=== PATIENT | male | born 1960 | race Caucasian/White ===

== ENCOUNTER → 2018-07-12 09:08 | Outpatient (CLI) | payer OTHER, MEDICAID, SELFPAY ==
--- NOTE | 2018-07-12 09:11 | DI.RAD.S_ITS ---
PROCEDURE: XR CERVICAL SPINE 2V OR 3V INDICATIONS: Neck pain TECHNIQUE: 3 view(s) of the cervical spine were acquired. COMPARISON: None. FINDINGS: Bones: No fractures or dislocations to the C7 level. The lateral masses of C1 appear intact on the odontoid view. Hypertrophic changes are evident in the lateral masses, especially in C4-5 and C5-6, right greater than left. No suspicious bony lesions. There is disc narrowing at C5-6 and C6-7. Soft tissues: No prevertebral soft tissue swelling. IMPRESSION: Degenerative disc disease and spondylosis cervical spine. Dictated by: Vinnie Combs M.D. on 07/12/2018 at 9:27 Approved by: Vinnie Combs M.D. on 07/12/2018 at 9:29
== END ==
PROVIDERS: Visit Provider Physician Assistant
DX: M50.321 Other cervical disc degeneration at C4-C5 level (principal); M43.02 Spondylolysis, cervical region
CPT/HCPCS: 72040

== ENCOUNTER → 2021-05-03 17:12 | Outpatient (CLI) | payer OTHER, MEDICAID, SELFPAY ==
--- NOTE | 2021-05-03 17:15 | DI.RAD.S_ITS ---
PROCEDURE: XR LUMBAR SPINE 2-3V INDICATIONS: lower back pain TECHNIQUE: Three views of the lumbar spine were acquired. COMPARISON: None. FINDINGS: Bones: There are 5 [id number] lumbar type vertebral bodies of normal height and alignment. Mild disc height loss from L3-L4 through L5-S1 with mild degenerative endplate change and facet hypertrophy. Soft tissues: Overlying bowel gas pattern is normal. No suspicious soft tissue calcifications. IMPRESSION: Degenerative changes in the lower lumbar spine, overall mild-moderate. Dictated by: Neto Lopez M.D. on 05/03/2021 at 19:53 Approved by: Neto Lopez M.D. on 05/03/2021 at 19:54
--- NOTE | 2021-05-03 17:15 | DI.RAD.S_ITS ---
PROCEDURE: XR SHOULDER RT MIN 2V INDICATIONS: right shoulder pain TECHNIQUE: 3 views of the shoulder were acquired. COMPARISON: None. FINDINGS: Bones: No fractures or dislocations. No suspicious bony lesions. Visualized ribs appear intact. Soft tissues: No suspicious soft tissue calcifications. IMPRESSION: No acute finding or significant degenerative change. Dictated by: Neto Lopez M.D. on 05/03/2021 at 19:54 Approved by: Neto Lopez M.D. on 05/03/2021 at 19:54
[2021-05-03 20:14] LABS: Add Manual Diff / Slide Review NO; Basophils Absolute Auto 0 /uL (0-100); Basophils Percent Auto 0.5 % (0-2); Eosinophils Absolute Auto 100 /uL (0-450); Eosinophils Percent Auto 0.8 % (2-4); Hematocrit 46.5 % (41-53); Hemoglobin 15.6 g/dL (13.5-17.5); Lymphocytes Absolute Auto 1600 /uL (1100-4500); Lymphocytes Percent Auto 16.8 % (25-40); Mean Corpuscular HGB Conc 33.5 % (30-36); Mean Corpuscular Hemoglobin 31.1 PG (26-34); Mean Corpuscular Volume 92.8 fL (80-100); Monocytes Absolute Auto 900 /uL (0-900); Monocytes Percent Auto 9.5 % (3-14); Neutrophils Absolute Auto 7000 /uL (1500-7000); Neutrophils Percent Auto 72.4 % (50-75); Platelet Count 268 X10^3/uL (150-400); Red Blood Cell Count 5.01 X10^6/uL (4.5-5.9); Red Cell Distribution Width 12.4 % (11.6-14.8); White Blood Cell Count 9.6 X10^3/uL (4.5-11.0)
[2021-05-03 20:28] LABS: BUN Creatinine Ratio 13.5 (6-22); Blood Urea Nitrogen 14 mg/dL (9-20); Calcium 9.5 mg/dL (8.4-10.2); Carbon Dioxide 28 mmol/L (22-32); Chloride 99 mmol/L (98-107); Cholesterol 273 mg/dL (140-199); Estimated Glomerular Filt Rate > 60.0 mL/min (>60); Glucose 83 mg/dL (70-100); HDL Cholesterol 37 mg/dL (40-60); HEMOLYSIS < 15 (0-50); LDL Cholesterol Calculated 205 mg/dL (<100); Potassium 3.9 mmol/L (3.4-5.1); Sodium 138 mmol/L (137-145); Triglycerides 155 mg/dL (35-150)
[2021-05-03 20:59] LABS: Prostate Specific Antigen Scrn 2.75 ng/mL (0.1-4.0)
== END ==
PROVIDERS: PCP Family Medicine; Referring Provider Registered Nurse; Visit Provider Registered Nurse
DX: M25.511 Pain in right shoulder (principal); M54.5 Low back pain; Z12.11 Encounter for screening for malignant neoplasm of colon; Z12.5 Encounter for screening for malignant neoplasm of prostate; Z13.220 Encounter for screening for lipoid disorders
CPT/HCPCS: 36415; 72100; 73030; 80048; 80061; 85025; G0103

== ENCOUNTER → 2021-05-07 13:06 | Outpatient (CLI) | payer OTHER, MEDICAID, SELFPAY ==
[2021-05-08 14:08] LABS: Fecal Immunochemical Test Negative (Negative)
== END ==
PROVIDERS: PCP Family Medicine; Referring Provider Family Medicine; Visit Provider Family Medicine
DX: Z12.11 Encounter for screening for malignant neoplasm of colon (principal); Z12.5 Encounter for screening for malignant neoplasm of prostate; Z13.220 Encounter for screening for lipoid disorders
CPT/HCPCS: 82274

== ENCOUNTER → 2021-05-16 14:52 | Outpatient (CLI) | payer OTHER, MEDICAID, SELFPAY ==
[2021-05-16 16:00] LABS: C-Reactive Protein Quant 6.3 mg/dL (<1.0)
[2021-05-16 16:23] LABS: Erythrocyte Sedimentation Rate 28 MM/HR (0-15)
== END ==
PROVIDERS: Family Provider Family Medicine; PCP Family Medicine; Referring Provider Family Medicine; Visit Provider Family Medicine
DX: M79.10 Myalgia, unspecified site (principal)
CPT/HCPCS: 36415; 85651; 86140

== ENCOUNTER → 2021-09-12 10:30 | Outpatient (CLI) | payer OTHER, MEDICAID, SELFPAY ==
[2021-09-12 11:16] LABS: Add Manual Diff / Slide Review NO; Basophils Absolute Auto 0 /uL (0-100); Basophils Percent Auto 0.4 % (0-2); Eosinophils Absolute Auto 100 /uL (0-450); Hematocrit 48.3 % (41-53); Hemoglobin 16.2 g/dL (13.5-17.5); Lymphocytes Absolute Auto 900 /uL (1100-4500); Lymphocytes Percent Auto 12.6 % (25-40); Mean Corpuscular HGB Conc 33.6 % (30-36); Mean Corpuscular Hemoglobin 31.8 PG (26-34); Mean Corpuscular Volume 94.7 fL (80-100); Monocytes Absolute Auto 600 /uL (0-900); Monocytes Percent Auto 8.3 % (3-14); Neutrophils Absolute Auto 5400 /uL (1500-7000); Neutrophils Percent Auto 77.7 % (50-75); Platelet Count 191 X10^3/uL (150-400); Red Cell Distribution Width 13.6 % (11.6-14.8)
[2021-09-12 11:34] LABS: Erythrocyte Sedimentation Rate 4 MM/HR (0-15)
[2021-09-12 12:47] LABS: Alanine Aminotransferase 16 IU/L (<50); Albumin 4.1 g/dL (3.5-5.0); Albumin Globulin Ratio 1.8 (1.0-2.8); Alkaline Phosphatase 66 U/L (38-126); Aspartate Aminotransferase 20 IU/L (17-59); BUN Creatinine Ratio 14.4 (6-22); Bilirubin Total 0.9 mg/dL (0.2-1.3); Blood Urea Nitrogen 15 mg/dL (9-20); C-Reactive Protein Quant 0.9 mg/dL (<1.0); Calcium 9.2 mg/dL (8.4-10.2); Carbon Dioxide 30 mmol/L (22-32); Chloride 100 mmol/L (98-107); Cholesterol 263 mg/dL (140-199); Estimated Glomerular Filt Rate > 60.0 mL/min (>60); Globulin 2.3 g/dL (1.7-4.1); Glucose 105 mg/dL (80-110); HDL Cholesterol 47 mg/dL (40-60); HEMOLYSIS < 15 (0-50); LDL Cholesterol Calculated 183 mg/dL (<100); Potassium 4.2 mmol/L (3.4-5.1); Sodium 137 mmol/L (137-145); Total Protein 6.4 g/dL (6.3-8.2); Triglycerides 164 mg/dL (35-150)
== END ==
PROVIDERS: Family Provider Family Medicine; PCP Family Medicine; Referring Provider Family Medicine; Visit Provider Family Medicine
DX: M35.3 Polymyalgia rheumatica (principal); E78.2 Mixed hyperlipidemia
CPT/HCPCS: 36415; 80053; 80061; 85025; 85651; 86140

== ENCOUNTER 2021-10-29 10:30 | Outpatient (RCR) | payer OTHER, MEDICAID, SELFPAY ==
--- NOTE | 2021-06-11 15:44 | PT.OIE ---
Current Diagnoses Pain in right shoulder (06/11/21) Pain in left shoulder (06/11/21) Low back pain (06/11/21) Past Medical History (Last Updated 05/31/21 @ 10:18 by Jordy Lawrence DO) Borderline high blood pressure Chicken pox Eczema Excessive weight gain Hip fracture (~1983) History of hernia surgery (~2008) History of hip surgery (~11/1983) Hyperlipidemia, mixed Lower back pain Myalgia PMR (polymyalgia rheumatica) Right shoulder pain Screen for colon cancer Screening for hyperlipidemia Screening for prostate cancer Shingles (~2008) Tinea corporis Wheat allergy Past Surgical History (Last Reviewed 05/03/21 @ 17:42 by SLOANE Escobedo) Anesthesia History of hernia surgery (~2008) History of hip surgery (~11/1983) Visit Care Team Role Provider Type SLOANE Escobedo Referring Provider [employer] M[employer] Installer Specialty: Medical Address: [address] [place] [address] Email: [email or web address] Jordy Lawrence DO Attending Provider Physician Family Provider Primary Care Provider Specialty: Family Practice Address: [address] [place] [address], [facility] Email: Physical Therapy Initial Evaluation PT-OP-A Visit Information Start: 05/28/21 15:30 Freq: Status: Active Protocol: Document 06/11/21 13:30 AMB (Rec: 06/11/21 15:21 AMB [email or web address]) Out-Patient Physical Therapy Visit Information Visit Information Visit Type Initial Evaluation Visit Start Time 13:30 Visit Stop Time 14:15 Total Visit Minutes 45 Visit Number 1 PT-OP-B Current Condition Start: 05/28/21 15:30 Freq: Status: Active Protocol: Document 06/11/21 13:30 AMB (Rec: 06/11/21 13:48 AMB [id number]) Current Condition History of Current Condition Onset Date March 2021 Current Complaints R shoulder pain> L shoulder pain> B hamstring pain History of Current Condition Recently diagnosed with polymyalgia rheumatica. 1 month on prednisone. R shoulder has not been responding to the prednisone as well as L shoulder and bilateral hamstring pain was worse before being on prednisone. Was doing a lot of yard work and had extreme pain the next day at the onset . Denies specific fall or injury. X-rays were clear per pt. Pt works from home at computer. Treatment Goals Patient/Caregiver Goals Decrease R shoulder pain Prior Functional Status Baseline Function- ADL's Independent Baseline Function- Mobility Independent Current Functional Impairments (Reported) Functional Limitations- ADL's Difficulty reaching out away from body with right arm, stiffness in morning Personal Factors Other Personal Factors That May Effect Polymyalgia rheumatica, Therapy/Recovery currently on prednisone PT-OP-C Subjective Start: 05/28/21 15:30 Freq: Status: Active Protocol: Document 06/11/21 13:30 AMB (Rec: 06/11/21 15:21 AMB [email or web address]) Patient Questionnaires Oswestry Low Back Index Oswestry Score 40 Oswestry Impairment 40 to 59% Impaired (Score 40- 59) Quick Dash- Upper Extremity Quick Dash UE Score 54 Quick Dash UE Impairment 40 to 59% Impaired (Score 40- 59) PT-OP-J Posture/Palpation/Skin Start: 05/28/21 15:30 Freq: Status: Active Protocol: Document 06/11/21 15:38 AMB (Rec: 06/11/21 15:44 AMB [email or web address]) Posture Evaluation Comments Posture Comments Flat lumbar spine with forward head posture Palpation Assessment Location One Palpation Details Tenderness throughout musculature of R shoulder most significant at long head of biceps insertion PT-OP-K Range of Motion Start: 05/28/21 15:30 Freq: Status: Active Protocol: Document 06/11/21 15:38 AMB (Rec: 06/11/21 15:44 AMB [email or web address]) Shoulder Goniometric Range of Motion Shoulder Left Active Testing Position Sitting Flexion 170 Abduction 180 External Rotation at 90 degrees 80 Abduction Right Active Testing Position Sitting Flexion 150 Extension 65 Abduction 155 External Rotation at 90 degrees 30 Abduction Internal Rotation 70 Comments pain with ER and IR behind back Hip Goniometric Range of Motion Hip ROM Limitations Comments Tighter in L hamstring than R PT-OP-M Strength Start: 05/28/21 15:30 Freq: Status: Active Protocol: Document 06/11/21 15:38 AMB (Rec: 06/11/21 15:44 AMB [email or web address]) Shoulder Strength Shoulder Manual Muscle Testing Right Flexion 3+ Fair+ Extension 4 Good Abduction (C5) 3+ Fair+ External Rotation 4 Good Internal Rotation 4+ Good+ Left Flexion 4 Good Extension 5 Normal Abduction (C5) 4 Good External Rotation 4+ Good+ Internal Rotation 5 Normal PT-OP-Q Treatments Start: 05/28/21 15:30 Freq: Status: Active Protocol: Document 06/11/21 15:38 AMB (Rec: 06/11/21 15:44 AMB [email or web address]) Therapeutic Exercises Supine Exercises hamstring stretch Side bilateral Reps/Minutes 30x4 Comments HEP Standing Exercises isometrics Standing Exercise Name flex, ER, IR, ext Side right Reps/Minutes 5x5 ea Comments abduction increased pain PT-OP-T Assessment and Plan Start: 05/28/21 15:30 Freq: Status: Active Protocol: Document 06/11/21 13:30 AMB (Rec: 06/11/21 15:37 AMB [email or web address]) Physical Therapy Assessment Rehab Potential Rehabilitation Potential Good Evaluation Complexity Number of Personal Factors/Comorbidities 1-2 Number of Body Systems Impaired 4 or More Clinical Presentation at Evaluation Evolving Impairments Impairments Activity Tolerance,Functional Activities,Pain,ROM,Strength Goals Three Impairment Lifting Short Term Goal (STG) Roland will lift a jug of ice tea out of the fridge without increasing his shoulder pain. STG Duration 4 weeks Senior Living Goal (LTG) Roland will lift 10# from the floor to waist heigh without an increase in leg or shoulder pain. LTG Duration 8 weeks Two Impairment ROM Short Term Goal (STG) Roland will improve his AROM of his R shoulder to 170 degrees of abduction. STG Duration 4 weeks One Impairment HEP Short Term Goal (STG) Roland will be independent and consistent with a home exercise program for his bilateral shoulders and lower extremities. STG Duration 4 weeks Assessment Summary Assessment Roland attends physical therapy with continue R shoulder pain that has not responded as well to corticosteroid treatment as his L shoulder and bilateral posterior thigh pain. He continues to be limited in reaching away from his body and behind his back, similar to a patient with rotator cuff pathology. He will benefit from physical therapy to manage inflammation, tightness and progress strengthening of his shoulders and legs. Physical Therapy Plan Frequency and Duration Frequency of Treatment 2x/Week Duration of Treatment 8 weeks Plan of Care Start Date 06/11/21 Plan of Care End Date 08/06/21 Therapeutic Interventions Therapeutic Interventions Home Exercise Program,Joint Mobilizations,Manual Therapy, Neuromuscular Re-education, Self-Care/Home Management,Soft Tissue Mobilization, Therapeutic Activities, Therapeutic Exercises Modalities Cold Pack/Ice Massage,Electric Stimulation,Hot Packs, Ultrasound Next Visit Focus/Plan Next Note Type Treatment Note Next Visit Plan Reassess isometrics and tolerance to that, initiate stretching HEP
--- NOTE | 2021-06-11 15:46 | PT.OPPOC ---
Physical, Occupational & Speech Therapy At [facility] Current Diagnoses Pain in right shoulder (06/11/21) Pain in left shoulder (06/11/21) Low back pain (06/11/21) Visit Care Team Role Provider Type SLOANE Escobedo Referring Provider Advanced [employer] Tech Specialty: Medical Address: [address] [place] [address], [id number] Email: [email or web address] Jordy Lawrence DO Attending Provider Physician Family Provider Primary Care Provider Specialty: Family Practice Address: [address] [place] [address], [id number] Email: Plan Of Care PT-OP-T Assessment and Plan Start: 05/28/21 15:30 Freq: Status: Active Protocol: Document 06/11/21 13:30 AMB (Rec: 06/11/21 15:37 AMB [email or web address]) Physical Therapy Assessment Rehab Potential Rehabilitation Potential Good Evaluation Complexity Number of Personal Factors/Comorbidities 1-2 Number of Body Systems Impaired 4 or More Clinical Presentation at Evaluation Evolving Impairments Impairments Activity Tolerance,Functional Activities,Pain,ROM,Strength Goals Three Impairment Lifting Short Term Goal (STG) Roland will lift a jug of ice tea out of the fridge without increasing his shoulder pain. STG Duration 4 weeks Half-Way Goal (LTG) Roland will lift 10# from the floor to waist heigh without an increase in leg or shoulder pain. LTG Duration 8 weeks Two Impairment ROM Short Term Goal (STG) Roland will improve his AROM of his R shoulder to 170 degrees of abduction. STG Duration 4 weeks One Impairment HEP Short Term Goal (STG) Roland will be independent and consistent with a home exercise program for his bilateral shoulders and lower extremities. STG Duration 4 weeks Assessment Summary Assessment Roland attends physical therapy with continue R shoulder pain that has not responded as well to corticosteroid treatment as his L shoulder and bilateral posterior thigh pain. He continues to be limited in reaching away from his body and behind his back, similar to a patient with rotator cuff pathology. He will benefit from physical therapy to manage inflammation, tightness and progress strengthening of his shoulders and legs. Physical Therapy Plan Frequency and Duration Frequency of Treatment 2x/Week Duration of Treatment 8 weeks Plan of Care Start Date 06/11/21 Plan of Care End Date 08/06/21 Therapeutic Interventions Therapeutic Interventions Home Exercise Program,Joint Mobilizations,Manual Therapy, Neuromuscular Re-education, Self-Care/Home Management,Soft Tissue Mobilization, Therapeutic Activities, Therapeutic Exercises Modalities Cold Pack/Ice Massage,Electric Stimulation,Hot Packs, Ultrasound Next Visit Focus/Plan Next Note Type Treatment Note Next Visit Plan Reassess isometrics and tolerance to that, initiate stretching HEP Plan of Care Dates Plan of Care Start Date 06/11/21 Plan of Care End Date 08/06/21 Electronically Signed by: Yun Orosco, PT 06/11/21 [id number] Please Sign and Return: I have reviewed this Plan of Care and certify that the skilled therapy services above are required to meet the patient?s needs. Physician Signature Date Printed Name and Credentials Clinical Instructor Signature Printed Name and Credentials
--- NOTE | 2021-06-14 15:40 | PT.OTN ---
Current Diagnoses Pain in right shoulder (06/13/21) Pain in left shoulder (06/13/21) Low back pain (06/13/21) Physical Therapy Treatment Note PT-OP-A Visit Information Start: 05/28/21 15:30 Freq: Status: Active Protocol: Document 06/13/21 09:00 AMB (Rec: 06/13/21 10:10 AMB [id number]) Out-Patient Physical Therapy Visit Information Visit Information Visit Type Treatment Note Visit Start Time 09:00 Visit Stop Time 09:45 Total Visit Minutes 45 Visit Number 2 PT-OP-B Current Condition Start: 05/28/21 15:30 Freq: Status: Active Protocol: Document 06/11/21 13:30 AMB (Rec: 06/11/21 13:48 AMB [id number]) Current Condition History of Current Condition Onset Date March 2021 Current Complaints R shoulder pain> L shoulder pain> B hamstring pain History of Current Condition Recently diagnosed with polymyalgia rheumatica. 1 month on prednisone. R shoulder has not been responding to the prednisone as well as L shoulder and bilateral hamstring pain was worse before being on prednisone. Was doing a lot of yard work and had extreme pain the next day at the onset . Denies specific fall or injury. X-rays were clear per pt. Pt works from home at computer. Treatment Goals Patient/Caregiver Goals Decrease R shoulder pain Prior Functional Status Baseline Function- ADL's Independent Baseline Function- Mobility Independent Current Functional Impairments (Reported) Functional Limitations- ADL's Difficulty reaching out away from body with right arm, stiffness in morning Personal Factors Other Personal Factors That May Effect Polymyalgia rheumatica, Therapy/Recovery currently on prednisone PT-OP-C Subjective Start: 05/28/21 15:30 Freq: Status: Active Protocol: Document 06/13/21 09:00 AMB (Rec: 06/14/21 15:39 AMB [email or web address]) OP-PT Subjective Patient Comments Patient Comments Pt states R shoulder continues to be the biggest issue. Isometrics did not seem to irritate as long as does it gentle. PT-OP-J Posture/Palpation/Skin Start: 05/28/21 15:30 Freq: Status: Active Protocol: Document 06/11/21 15:38 AMB (Rec: 06/11/21 15:44 AMB [email or web address]) Posture Evaluation Comments Posture Comments Flat lumbar spine with forward head posture Palpation Assessment Location One Palpation Details Tenderness throughout musculature of R shoulder most significant at long head of biceps insertion PT-OP-K Range of Motion Start: 05/28/21 15:30 Freq: Status: Active Protocol: Document 06/11/21 15:38 AMB (Rec: 06/11/21 15:44 AMB [email or web address]) Shoulder Goniometric Range of Motion Shoulder Left Active Testing Position Sitting Flexion 170 Abduction 180 External Rotation at 90 degrees 80 Abduction Right Active Testing Position Sitting Flexion 150 Extension 65 Abduction 155 External Rotation at 90 degrees 30 Abduction Internal Rotation 70 Comments pain with ER and IR behind back Hip Goniometric Range of Motion Hip ROM Limitations Comments Tighter in L hamstring than R PT-OP-M Strength Start: 05/28/21 15:30 Freq: Status: Active Protocol: Document 06/11/21 15:38 AMB (Rec: 06/11/21 15:44 AMB [email or web address]) Shoulder Strength Shoulder Manual Muscle Testing Right Flexion 3+ Fair+ Extension 4 Good Abduction (C5) 3+ Fair+ External Rotation 4 Good Internal Rotation 4+ Good+ Left Flexion 4 Good Extension 5 Normal Abduction (C5) 4 Good External Rotation 4+ Good+ Internal Rotation 5 Normal PT-OP-Q Treatments Start: 05/28/21 15:30 Freq: Status: Active Protocol: Document 06/13/21 09:00 AMB (Rec: 06/14/21 15:39 AMB [email or web address]) Therapeutic Exercises Sidelying Exercises ER Sidelying Exercise Name ER AROM Standing Exercises 1 Standing Exercise Name t band rows Resistance #2 isometrics Standing Exercise Name flex, ER, IR, ext Side right Reps/Minutes 5x5 ea Comments abduction increased pain Manual Therapy Treatment Soft Tissue Mobilization 1 Body Location R UT, pec, biceps Mobilization Type Myofascial Release Intensity/Depth Moderate Joint Mobilizations 1 Joint GH posterior and inferior glides Grade II PT-OP-R Modalities Start: 05/28/21 15:30 Freq: Status: Active Protocol: Document 06/13/21 09:00 AMB (Rec: 06/14/21 15:40 AMB [email or web address]) Electric Stimulation Electric Stimulation Interferential Current (IFC) Body Location R shoulder Duration (Minutes) 10 Patient Position Hooklying Combined With Heat/Cold Cold Pack PT-OP-T Assessment and Plan Start: 05/28/21 15:30 Freq: Status: Active Protocol: Document 06/13/21 09:00 VANITA (Rec: 06/14/21 15:39 AMB [email or web address]) Physical Therapy Plan Next Visit Focus/Plan Next Note Type Treatment Note
--- NOTE | 2021-06-17 11:55 | PT.OTN ---
Current Diagnoses Pain in right shoulder (06/17/21) Pain in left shoulder (06/17/21) Low back pain (06/17/21) Physical Therapy Treatment Note PT-OP-A Visit Information Start: 05/28/21 15:30 Freq: Status: Active Protocol: Document 06/17/21 11:00 AMB (Rec: 06/17/21 11:55 AMB [id number]) Out-Patient Physical Therapy Visit Information Visit Information Visit Type Treatment Note Visit Start Time 11:00 Visit Stop Time 11:45 Total Visit Minutes 45 Visit Number 3 PT-OP-B Current Condition Start: 05/28/21 15:30 Freq: Status: Active Protocol: Document 06/11/21 13:30 AMB (Rec: 06/11/21 13:48 AMB [id number]) Current Condition History of Current Condition Onset Date March 2021 Current Complaints R shoulder pain> L shoulder pain> B hamstring pain History of Current Condition Recently diagnosed with polymyalgia rheumatica. 1 month on prednisone. R shoulder has not been responding to the prednisone as well as L shoulder and bilateral hamstring pain was worse before being on prednisone. Was doing a lot of yard work and had extreme pain the next day at the onset . Denies specific fall or injury. X-rays were clear per pt. Pt works from home at computer. Treatment Goals Patient/Caregiver Goals Decrease R shoulder pain Prior Functional Status Baseline Function- ADL's Independent Baseline Function- Mobility Independent Current Functional Impairments (Reported) Functional Limitations- ADL's Difficulty reaching out away from body with right arm, stiffness in morning Personal Factors Other Personal Factors That May Effect Polymyalgia rheumatica, Therapy/Recovery currently on prednisone PT-OP-C Subjective Start: 05/28/21 15:30 Freq: Status: Active Protocol: Document 06/17/21 11:00 AMB (Rec: 06/17/21 11:55 AMB [id number]) OP-PT Subjective Patient Comments Patient Comments Hamstrings are going well, R shoulder continues to be the problem PT-OP-J Posture/Palpation/Skin Start: 05/28/21 15:30 Freq: Status: Active Protocol: Document 06/11/21 15:38 AMB (Rec: 06/11/21 15:44 AMB [email or web address]) Posture Evaluation Comments Posture Comments Flat lumbar spine with forward head posture Palpation Assessment Location One Palpation Details Tenderness throughout musculature of R shoulder most significant at long head of biceps insertion PT-OP-K Range of Motion Start: 05/28/21 15:30 Freq: Status: Active Protocol: Document 06/11/21 15:38 AMB (Rec: 06/11/21 15:44 AMB [email or web address]) Shoulder Goniometric Range of Motion Shoulder Left Active Testing Position Sitting Flexion 170 Abduction 180 External Rotation at 90 degrees 80 Abduction Right Active Testing Position Sitting Flexion 150 Extension 65 Abduction 155 External Rotation at 90 degrees 30 Abduction Internal Rotation 70 Comments pain with ER and IR behind back Hip Goniometric Range of Motion Hip ROM Limitations Comments Tighter in L hamstring than R PT-OP-M Strength Start: 05/28/21 15:30 Freq: Status: Active Protocol: Document 06/11/21 15:38 AMB (Rec: 06/11/21 15:44 AMB [email or web address]) Shoulder Strength Shoulder Manual Muscle Testing Right Flexion 3+ Fair+ Extension 4 Good Abduction (C5) 3+ Fair+ External Rotation 4 Good Internal Rotation 4+ Good+ Left Flexion 4 Good Extension 5 Normal Abduction (C5) 4 Good External Rotation 4+ Good+ Internal Rotation 5 Normal PT-OP-Q Treatments Start: 05/28/21 15:30 Freq: Status: Active Protocol: Document 06/17/21 11:00 AMB (Rec: 06/17/21 11:55 AMB [id number]) Therapeutic Exercises Supine Exercises 1 Supine Exercise Name flexion AROM 0-45 Reps/Minutes 2x10 Sidelying Exercises ER Sidelying Exercise Name ER AROM Reps/Minutes 10 Standing Exercises IR/ER Standing Exercise Name t band #2 Reps/Minutes 2x10 Comments vc form 2 Standing Exercise Name t band shoulder ext Resistance #2 Reps/Minutes 2x10 1 Standing Exercise Name t band rows Resistance #2 Reps/Minutes 2x10 Manual Therapy Treatment Soft Tissue Mobilization 1 Body Location R UT, pec, biceps, subscap, infra and supraspinatus Mobilization Type Myofascial Release Intensity/Depth Moderate PT-OP-R Modalities Start: 05/28/21 15:30 Freq: Status: Active Protocol: Document 06/17/21 11:00 AMB (Rec: 06/17/21 11:55 AMB [id number]) Electric Stimulation Electric Stimulation Interferential Current (IFC) Body Location R shoulder Duration (Minutes) 10 Patient Position Hooklying Combined With Heat/Cold Cold Pack PT-OP-T Assessment and Plan Start: 05/28/21 15:30 Freq: Status: Active Protocol: Document 06/17/21 11:00 AMB (Rec: 06/17/21 11:55 AMB [id number]) Physical Therapy Assessment Assessment Summary Assessment Roland is tolerating more strengthening, continues to have most symptoms in upper arm and scapula. Physical Therapy Plan Next Visit Focus/Plan Next Note Type Treatment Note Next Visit Plan Follow up on T band exercises- give as HEP if tolerated
--- NOTE | 2021-06-20 11:59 | PT.OTN ---
Current Diagnoses Pain in right shoulder (06/20/21) Pain in left shoulder (06/20/21) Low back pain (06/20/21) Physical Therapy Treatment Note PT-OP-A Visit Information Start: 05/28/21 15:30 Freq: Status: Active Protocol: Document 06/20/21 11:00 AMB (Rec: 06/20/21 11:43 AMB [id number]) Out-Patient Physical Therapy Visit Information Visit Information Visit Type Treatment Note Visit Start Time 11:05 Visit Stop Time 11:45 Total Visit Minutes 40 Visit Number 4 PT-OP-B Current Condition Start: 05/28/21 15:30 Freq: Status: Active Protocol: Document 06/11/21 13:30 AMB (Rec: 06/11/21 13:48 AMB [id number]) Current Condition History of Current Condition Onset Date March 2021 Current Complaints R shoulder pain> L shoulder pain> B hamstring pain History of Current Condition Recently diagnosed with polymyalgia rheumatica. 1 month on prednisone. R shoulder has not been responding to the prednisone as well as L shoulder and bilateral hamstring pain was worse before being on prednisone. Was doing a lot of yard work and had extreme pain the next day at the onset . Denies specific fall or injury. X-rays were clear per pt. Pt works from home at computer. Treatment Goals Patient/Caregiver Goals Decrease R shoulder pain Prior Functional Status Baseline Function- ADL's Independent Baseline Function- Mobility Independent Current Functional Impairments (Reported) Functional Limitations- ADL's Difficulty reaching out away from body with right arm, stiffness in morning Personal Factors Other Personal Factors That May Effect Polymyalgia rheumatica, Therapy/Recovery currently on prednisone PT-OP-C Subjective Start: 05/28/21 15:30 Freq: Status: Active Protocol: Document 06/20/21 11:00 AMB (Rec: 06/20/21 11:43 AMB [id number]) OP-PT Subjective Patient Comments Patient Comments Pt would like to go on hold until he meets with his dr. He had a bit of a flare up afer PT last visit, felt good the rest of the day after the appt, but then the next day was quite sore. PT-OP-J Posture/Palpation/Skin Start: 05/28/21 15:30 Freq: Status: Active Protocol: Document 06/11/21 15:38 AMB (Rec: 06/11/21 15:44 AMB [email or web address]) Posture Evaluation Comments Posture Comments Flat lumbar spine with forward head posture Palpation Assessment Location One Palpation Details Tenderness throughout musculature of R shoulder most significant at long head of biceps insertion PT-OP-K Range of Motion Start: 05/28/21 15:30 Freq: Status: Active Protocol: Document 06/11/21 15:38 AMB (Rec: 06/11/21 15:44 AMB [email or web address]) Shoulder Goniometric Range of Motion Shoulder Left Active Testing Position Sitting Flexion 170 Abduction 180 External Rotation at 90 degrees 80 Abduction Right Active Testing Position Sitting Flexion 150 Extension 65 Abduction 155 External Rotation at 90 degrees 30 Abduction Internal Rotation 70 Comments pain with ER and IR behind back Hip Goniometric Range of Motion Hip ROM Limitations Comments Tighter in L hamstring than R PT-OP-M Strength Start: 05/28/21 15:30 Freq: Status: Active Protocol: Document 06/11/21 15:38 AMB (Rec: 06/11/21 15:44 AMB [email or web address]) Shoulder Strength Shoulder Manual Muscle Testing Right Flexion 3+ Fair+ Extension 4 Good Abduction (C5) 3+ Fair+ External Rotation 4 Good Internal Rotation 4+ Good+ Left Flexion 4 Good Extension 5 Normal Abduction (C5) 4 Good External Rotation 4+ Good+ Internal Rotation 5 Normal PT-OP-Q Treatments Start: 05/28/21 15:30 Freq: Status: Active Protocol: Document 06/20/21 11:00 AMB (Rec: 06/20/21 11:57 AMB [id number]) Therapeutic Exercises Supine Exercises AAROM Supine Exercise Name abduction and ER Comments painful 1 Supine Exercise Name flexion AAROM full Reps/Minutes 2x10 hamstring stretch Side bilateral Reps/Minutes 30x4 Comments HEP Standing Exercises isometrics Standing Exercise Name flex, ER, IR, ext Side right Reps/Minutes 5x5 ea Comments abduction increased pain PT-OP-R Modalities Start: 05/28/21 15:30 Freq: Status: Active Protocol: Document 06/17/21 11:00 AMB (Rec: 06/17/21 11:55 AMB [id number]) Electric Stimulation Electric Stimulation Interferential Current (IFC) Body Location R shoulder Duration (Minutes) 10 Patient Position Hooklying Combined With Heat/Cold Cold Pack PT-OP-T Assessment and Plan Start: 05/28/21 15:30 Freq: Status: Active Protocol: Document 06/20/21 11:00 AMB (Rec: 06/20/21 11:43 AMB [id number]) Physical Therapy Assessment Assessment Summary Assessment Roland would like to follow up with his physician before using more of his limited PT visits. Encouraged to continue with isometrics, add in AAROM flexion to HEP and consider purchasing home TENS unit. Physical Therapy Plan Hold Physical Therapy Reason For Hold Pt following up with
--- NOTE | 2021-09-12 13:38 | PT.OTN ---
Current Diagnoses Pain in right shoulder (09/12/21) Pain in left shoulder (09/12/21) Low back pain (09/12/21) Physical Therapy Treatment Note PT-OP-A Visit Information Start: 05/28/21 15:30 Freq: Status: Active Protocol: Document 09/12/21 10:01 AMB (Rec: 09/12/21 10:29 AMB [id number]) Out-Patient Physical Therapy Visit Information Visit Information Visit Type Progress Note Visit Start Time 09:45 Visit Stop Time 10:30 Total Visit Minutes 45 Visit Number 5 PT-OP-B Current Condition Start: 05/28/21 15:30 Freq: Status: Active Protocol: Document 06/11/21 13:30 AMB (Rec: 06/11/21 13:48 AMB [id number]) Current Condition History of Current Condition Onset Date March 2021 Current Complaints R shoulder pain> L shoulder pain> B hamstring pain History of Current Condition Recently diagnosed with polymyalgia rheumatica. 1 month on prednisone. R shoulder has not been responding to the prednisone as well as L shoulder and bilateral hamstring pain was worse before being on prednisone. Was doing a lot of yard work and had extreme pain the next day at the onset . Denies specific fall or injury. X-rays were clear per pt. Pt works from home at computer. Treatment Goals Patient/Caregiver Goals Decrease R shoulder pain Prior Functional Status Baseline Function- ADL's Independent Baseline Function- Mobility Independent Current Functional Impairments (Reported) Functional Limitations- ADL's Difficulty reaching out away from body with right arm, stiffness in morning Personal Factors Other Personal Factors That May Effect Polymyalgia rheumatica, Therapy/Recovery currently on prednisone PT-OP-C Subjective Start: 05/28/21 15:30 Freq: Status: Active Protocol: Document 09/12/21 13:20 AMB (Rec: 09/12/21 13:34 AMB [email or web address]) OP-PT Subjective Patient Comments Patient Comments Alvarez returns to PT and feels better in his hamstrings and his left shoulder, he continues to have pain lifting out away from his body, especially in abduction. PT-OP-J Posture/Palpation/Skin Start: 05/28/21 15:30 Freq: Status: Active Protocol: Document 06/11/21 15:38 AMB (Rec: 06/11/21 15:44 AMB [email or web address]) Posture Evaluation Comments Posture Comments Flat lumbar spine with forward head posture Palpation Assessment Location One Palpation Details Tenderness throughout musculature of R shoulder most significant at long head of biceps insertion PT-OP-K Range of Motion Start: 05/28/21 15:30 Freq: Status: Active Protocol: Document 09/12/21 13:34 AMB (Rec: 09/12/21 13:35 AMB [email or web address]) Shoulder Goniometric Range of Motion Shoulder Right Passive Testing Position Supine Flexion 165 Abduction 90 External Rotation at 90 degrees 40 Abduction Internal Rotation 90 PT-OP-M Strength Start: 05/28/21 15:30 Freq: Status: Active Protocol: Document 06/11/21 15:38 AMB (Rec: 06/11/21 15:44 AMB [email or web address]) Shoulder Strength Shoulder Manual Muscle Testing Right Flexion 3+ Fair+ Extension 4 Good Abduction (C5) 3+ Fair+ External Rotation 4 Good Internal Rotation 4+ Good+ Left Flexion 4 Good Extension 5 Normal Abduction (C5) 4 Good External Rotation 4+ Good+ Internal Rotation 5 Normal PT-OP-Q Treatments Start: 05/28/21 15:30 Freq: Status: Active Protocol: Document 09/12/21 13:20 AMB (Rec: 09/12/21 13:34 AMB [email or web address]) Therapeutic Exercises Supine Exercises AAROM Supine Exercise Name abduction and ER Reps/Minutes 2x10 Comments with dowel 1 Supine Exercise Name flexion AAROM full Reps/Minutes 2x10 Sitting Exercises pulleys Sitting Exercise Name flexion, abduction, IR Reps/Minutes 5 min Standing Exercises 4 Standing Exercise Name wall walk flexion, scaption, abduction Reps/Minutes [id number] 3 Standing Exercise Name wand extension and IR Reps/Minutes 2x10 PT-OP-R Modalities Start: 05/28/21 15:30 Freq: Status: Active Protocol: Document 06/17/21 11:00 AMB (Rec: 06/17/21 11:55 AMB [id number]) Electric Stimulation Electric Stimulation Interferential Current (IFC) Body Location R shoulder Duration (Minutes) 10 Patient Position Hooklying Combined With Heat/Cold Cold Pack PT-OP-T Assessment and Plan Start: 05/28/21 15:30 Freq: Status: Active Protocol: Document 09/12/21 13:20 AMB (Rec: 09/12/21 13:34 AMB [email or web address]) Physical Therapy Assessment Goals Three Impairment Lifting Short Term Goal (STG) Roland will lift a jug of ice tea out of the fridge without increasing his shoulder pain. STG Duration 4 weeks Detention Goal (LTG) Roland will lift 10# from the floor to waist heigh without an increase in leg or shoulder pain. LTG Duration 8 weeks Two Impairment ROM Short Term Goal (STG) Roland will improve his AROM of his R shoulder to 170 degrees of abduction. STG Duration 4 weeks-- not met One Impairment HEP Short Term Goal (STG) Roland will be independent and consistent with a home exercise program for his bilateral shoulders and lower extremities. STG Duration 4 weeks- progress made R shoulder is the focus now Assessment Summary Assessment Alvarez's ROM has improved, but he continues to be limited with abduction and external rotation. Scaption is actually quite good. His hamstrings and L shoulder are quite good now the focus of continued PT will be his right shoulder, he continues to have pain in the shoulder joint and difficulty lifting and reaching away from his body. He will benefit from continued physical therapy to finalize his HEP. Physical Therapy Plan Frequency and Duration Frequency of Treatment Every Other Week Duration of Treatment 8 weeks Plan of Care Start Date 09/12/21 Plan of Care End Date 11/07/21 Therapeutic Interventions Therapeutic Interventions Home Exercise Program,Joint Mobilizations,Manual Therapy, Neuromuscular Re-education, Self-Care/Home Management,Soft Tissue Mobilization, Therapeutic Activities, Therapeutic Exercises Modalities Cold Pack/Ice Massage,Electric Stimulation,Hot Packs, Ultrasound Next Visit Focus/Plan Next Visit Plan Folow up on AAROM exercises
--- NOTE | 2021-09-12 13:38 | PT.OPPOC ---
Physical, Occupational & Speech Therapy At [facility] Current Diagnoses Pain in right shoulder (09/12/21) Pain in left shoulder (09/12/21) Low back pain (09/12/21) Visit Care Team Role Provider Type SLOANE Escobedo Referring Provider Advanced Ed Special Education Teacher Specialty: Medical Address: [address] [place] [address], [id number] Email: [email or web address] Jordy Lawrence DO Attending Provider Physician Family Provider Primary Care Provider Specialty: Family Practice Address: [address] [place] [address], [id number] Email: Plan Of Care PT-OP-T Assessment and Plan Start: 05/28/21 15:30 Freq: Status: Active Protocol: Document 09/12/21 13:20 AMB (Rec: 09/12/21 13:34 AMB [email or web address]) Physical Therapy Assessment Goals Three Impairment Lifting Short Term Goal (STG) Roland will lift a jug of ice tea out of the fridge without increasing his shoulder pain. STG Duration 4 weeks Fpc Goal (LTG) Roland will lift 10# from the floor to waist heigh without an increase in leg or shoulder pain. LTG Duration 8 weeks Two Impairment ROM Short Term Goal (STG) Roland will improve his AROM of his R shoulder to 170 degrees of abduction. STG Duration 4 weeks-- not met One Impairment HEP Short Term Goal (STG) Roland will be independent and consistent with a home exercise program for his bilateral shoulders and lower extremities. STG Duration 4 weeks- progress made R shoulder is the focus now Assessment Summary Assessment Douglass ROM has improved, but he continues to be limited with abduction and external rotation. Scaption is actually quite good. His hamstrings and L shoulder are quite good now the focus of continued PT will be his right shoulder, he continues to have pain in the shoulder joint and difficulty lifting and reaching away from his body. He will benefit from continued physical therapy to finalize his HEP. Physical Therapy Plan Frequency and Duration Frequency of Treatment Every Other Week Duration of Treatment 8 weeks Plan of Care Start Date 09/12/21 Plan of Care End Date 11/07/21 Therapeutic Interventions Therapeutic Interventions Home Exercise Program,Joint Mobilizations,Manual Therapy, Neuromuscular Re-education, Self-Care/Home Management,Soft Tissue Mobilization, Therapeutic Activities, Therapeutic Exercises Modalities Cold Pack/Ice Massage,Electric Stimulation,Hot Packs, Ultrasound Next Visit Focus/Plan Next Visit Plan Folow up on AAROM exercises Plan of Care Dates Plan of Care Start Date 09/12/21 Plan of Care End Date 11/07/21 Electronically Signed by: Yun Orosco, PT 09/12/21 1200 Please Sign and Return: I have reviewed this Plan of Care and certify that the skilled therapy services above are required to meet the patient?s needs. Physician Signature Date Printed Name and Credentials Clinical Instructor Signature Printed Name and Credentials
--- NOTE | 2021-09-26 10:39 | PT.OTN ---
Current Diagnoses Pain in right shoulder (09/26/21) Pain in left shoulder (09/26/21) Low back pain (09/26/21) Physical Therapy Treatment Note PT-OP-A Visit Information Start: 05/28/21 15:30 Freq: Status: Active Protocol: Document 09/26/21 09:45 AMB (Rec: 09/26/21 10:39 AMB [id number]) Out-Patient Physical Therapy Visit Information Visit Information Visit Type Treatment Note Visit Start Time 09:45 Visit Stop Time 10:30 Total Visit Minutes 45 Visit Number 6 PT-OP-B Current Condition Start: 05/28/21 15:30 Freq: Status: Active Protocol: Document 06/11/21 13:30 AMB (Rec: 06/11/21 13:48 AMB [id number]) Current Condition History of Current Condition Onset Date March 2021 Current Complaints R shoulder pain> L shoulder pain> B hamstring pain History of Current Condition Recently diagnosed with polymyalgia rheumatica. 1 month on prednisone. R shoulder has not been responding to the prednisone as well as L shoulder and bilateral hamstring pain was worse before being on prednisone. Was doing a lot of yard work and had extreme pain the next day at the onset . Denies specific fall or injury. X-rays were clear per pt. Pt works from home at computer. Treatment Goals Patient/Caregiver Goals Decrease R shoulder pain Prior Functional Status Baseline Function- ADL's Independent Baseline Function- Mobility Independent Current Functional Impairments (Reported) Functional Limitations- ADL's Difficulty reaching out away from body with right arm, stiffness in morning Personal Factors Other Personal Factors That May Effect Polymyalgia rheumatica, Therapy/Recovery currently on prednisone PT-OP-C Subjective Start: 05/28/21 15:30 Freq: Status: Active Protocol: Document 09/26/21 09:45 AMB (Rec: 09/26/21 10:39 AMB [id number]) OP-PT Subjective Patient Comments Patient Comments Alvarez reports shoulder extension AAROM is uncomfortable. PT-OP-J Posture/Palpation/Skin Start: 05/28/21 15:30 Freq: Status: Active Protocol: Document 06/11/21 15:38 AMB (Rec: 06/11/21 15:44 AMB [email or web address]) Posture Evaluation Comments Posture Comments Flat lumbar spine with forward head posture Palpation Assessment Location One Palpation Details Tenderness throughout musculature of R shoulder most significant at long head of biceps insertion PT-OP-K Range of Motion Start: 05/28/21 15:30 Freq: Status: Active Protocol: Document 09/12/21 13:34 AMB (Rec: 09/12/21 13:35 AMB [email or web address]) Shoulder Goniometric Range of Motion Shoulder Right Passive Testing Position Supine Flexion 165 Abduction 90 External Rotation at 90 degrees 40 Abduction Internal Rotation 90 PT-OP-M Strength Start: 05/28/21 15:30 Freq: Status: Active Protocol: Document 06/11/21 15:38 AMB (Rec: 06/11/21 15:44 AMB [email or web address]) Shoulder Strength Shoulder Manual Muscle Testing Right Flexion 3+ Fair+ Extension 4 Good Abduction (C5) 3+ Fair+ External Rotation 4 Good Internal Rotation 4+ Good+ Left Flexion 4 Good Extension 5 Normal Abduction (C5) 4 Good External Rotation 4+ Good+ Internal Rotation 5 Normal PT-OP-Q Treatments Start: 05/28/21 15:30 Freq: Status: Active Protocol: Document 09/26/21 09:45 AMB (Rec: 09/26/21 10:39 AMB [id number]) Therapeutic Exercises Supine Exercises pec stretch Reps/Minutes 30x3 Sidelying Exercises sleeper stretch Reps/Minutes 30x5 Standing Exercises pec stretch Standing Exercise Name doorway then corner Comments modified lower to decrease sharp pain 4 Standing Exercise Name wall walk flexion, scaption, abduction Reps/Minutes [id number] 3 Standing Exercise Name wand extension and IR Reps/Minutes 2x10 Manual Therapy Treatment Soft Tissue Mobilization 1 Body Location supraspinatus Mobilization Type Myofascial Release Intensity/Depth Moderate Comments left Joint Mobilizations 1 Joint GH posterior and inferior glides Grade III Comments left PT-OP-R Modalities Start: 05/28/21 15:30 Freq: Status: Active Protocol: Document 06/17/21 11:00 AMB (Rec: 06/17/21 11:55 AMB [id number]) Electric Stimulation Electric Stimulation Interferential Current (IFC) Body Location R shoulder Duration (Minutes) 10 Patient Position Hooklying Combined With Heat/Cold Cold Pack PT-OP-T Assessment and Plan Start: 05/28/21 15:30 Freq: Status: Active Protocol: Document 09/26/21 09:45 AMB (Rec: 09/26/21 10:39 AMB [id number]) Physical Therapy Assessment Assessment Summary Assessment Alvarez's ROM is improving with pain really only at end range, but does continue to have restriction gregory with abduction and ER. Physical Therapy Plan Next Visit Focus/Plan Next Visit Plan Progress written HEP, end range abduction, IR
--- NOTE | 2021-10-09 13:42 | PT.OTN ---
Current Diagnoses Pain in right shoulder (10/09/21) Pain in left shoulder (10/09/21) Low back pain (10/09/21) Physical Therapy Treatment Note PT-OP-A Visit Information Start: 05/28/21 15:30 Freq: Status: Active Protocol: Document 10/09/21 11:25 AMB (Rec: 10/09/21 11:59 AMB [id number]) Out-Patient Physical Therapy Visit Information Visit Information Visit Type Treatment Note Visit Start Time 11:15 Visit Stop Time 12:00 Total Visit Minutes 45 Visit Number 7 PT-OP-B Current Condition Start: 05/28/21 15:30 Freq: Status: Active Protocol: Document 06/11/21 13:30 AMB (Rec: 06/11/21 13:48 AMB [id number]) Current Condition History of Current Condition Onset Date March 2021 Current Complaints R shoulder pain> L shoulder pain> B hamstring pain History of Current Condition Recently diagnosed with polymyalgia rheumatica. 1 month on prednisone. R shoulder has not been responding to the prednisone as well as L shoulder and bilateral hamstring pain was worse before being on prednisone. Was doing a lot of yard work and had extreme pain the next day at the onset . Denies specific fall or injury. X-rays were clear per pt. Pt works from home at computer. Treatment Goals Patient/Caregiver Goals Decrease R shoulder pain Prior Functional Status Baseline Function- ADL's Independent Baseline Function- Mobility Independent Current Functional Impairments (Reported) Functional Limitations- ADL's Difficulty reaching out away from body with right arm, stiffness in morning Personal Factors Other Personal Factors That May Effect Polymyalgia rheumatica, Therapy/Recovery currently on prednisone PT-OP-C Subjective Start: 05/28/21 15:30 Freq: Status: Active Protocol: Document 10/09/21 11:25 AMB (Rec: 10/09/21 11:59 AMB [id number]) OP-PT Subjective Patient Comments Patient Comments Alvarez reports PT-OP-J Posture/Palpation/Skin Start: 05/28/21 15:30 Freq: Status: Active Protocol: Document 06/11/21 15:38 AMB (Rec: 06/11/21 15:44 AMB [email or web address]) Posture Evaluation Comments Posture Comments Flat lumbar spine with forward head posture Palpation Assessment Location One Palpation Details Tenderness throughout musculature of R shoulder most significant at long head of biceps insertion PT-OP-K Range of Motion Start: 05/28/21 15:30 Freq: Status: Active Protocol: Document 09/12/21 13:34 AMB (Rec: 09/12/21 13:35 AMB [email or web address]) Shoulder Goniometric Range of Motion Shoulder Right Passive Testing Position Supine Flexion 165 Abduction 90 External Rotation at 90 degrees 40 Abduction Internal Rotation 90 PT-OP-M Strength Start: 05/28/21 15:30 Freq: Status: Active Protocol: Document 06/11/21 15:38 AMB (Rec: 06/11/21 15:44 AMB [email or web address]) Shoulder Strength Shoulder Manual Muscle Testing Right Flexion 3+ Fair+ Extension 4 Good Abduction (C5) 3+ Fair+ External Rotation 4 Good Internal Rotation 4+ Good+ Left Flexion 4 Good Extension 5 Normal Abduction (C5) 4 Good External Rotation 4+ Good+ Internal Rotation 5 Normal PT-OP-Q Treatments Start: 05/28/21 15:30 Freq: Status: Active Protocol: Document 10/09/21 11:15 AMB (Rec: 10/09/21 13:42 AMB [email or web address]) Therapeutic Exercises Supine Exercises pec stretch Reps/Minutes 30x3 Sidelying Exercises sleeper stretch Reps/Minutes 30x5 Sitting Exercises pulleys Sitting Exercise Name flexion, abduction, IR Reps/Minutes 5 min Standing Exercises pec stretch Standing Exercise Name doorway then corner Comments modified lower to decrease sharp pain Manual Therapy Treatment Soft Tissue Mobilization 1 Body Location supraspinatus Mobilization Type Myofascial Release Intensity/Depth Moderate Comments left Joint Mobilizations 1 Joint GH posterior and inferior glides Grade III Comments left Manual Traction R shoulder Comments with PROM, stretching PT-OP-R Modalities Start: 05/28/21 15:30 Freq: Status: Active Protocol: Document 06/17/21 11:00 AMB (Rec: 06/17/21 11:55 AMB [id number]) Electric Stimulation Electric Stimulation Interferential Current (IFC) Body Location R shoulder Duration (Minutes) 10 Patient Position Hooklying Combined With Heat/Cold Cold Pack PT-OP-T Assessment and Plan Start: 05/28/21 15:30 Freq: Status: Active Protocol: Document 10/09/21 11:15 AMB (Rec: 10/09/21 13:42 AMB [email or web address]) Physical Therapy Assessment Goals Three Impairment Lifting Short Term Goal (STG) Roland will lift a jug of ice tea out of the fridge without increasing his shoulder pain. STG Duration 4 weeks Post Graduate Intern Goal (LTG) Roland will lift 10# from the floor to waist heigh without an increase in leg or shoulder pain. LTG Duration 8 weeks Two Impairment ROM Short Term Goal (STG) Roland will improve his AROM of his R shoulder to 170 degrees of abduction. STG Duration 4 weeks-- not met One Impairment HEP Short Term Goal (STG) Roland will be independent and consistent with a home exercise program for his bilateral shoulders and lower extremities. STG Duration 4 weeks- progress made R shoulder is the focus now Assessment Summary Assessment Alvarez is doing better with his stretching after this session. Educated extensively on letting arm relax, allowing upper arm to be supported on bed to better tolerate stretching. Physical Therapy Plan Next Visit Focus/Plan Next Note Type Discharge Summary Next Visit Plan Progress written HEP, end range abduction, IR
--- NOTE | 2021-10-29 16:12 | PT.OTN ---
Current Diagnoses Pain in right shoulder (10/29/21) Pain in left shoulder (10/29/21) Low back pain (10/29/21) Physical Therapy Treatment Note PT-OP-A Visit Information Start: 05/28/21 15:30 Freq: Status: Active Protocol: Document 10/29/21 10:28 AMB (Rec: 10/29/21 10:53 AMB [id number]) Out-Patient Physical Therapy Visit Information Visit Information Visit Type Treatment Note Visit Start Time 10:30 Visit Stop Time 11:15 Total Visit Minutes 45 Visit Number 8 PT-OP-B Current Condition Start: 05/28/21 15:30 Freq: Status: Active Protocol: Document 06/11/21 13:30 AMB (Rec: 06/11/21 13:48 AMB [id number]) Current Condition History of Current Condition Onset Date March 2021 Current Complaints R shoulder pain> L shoulder pain> B hamstring pain History of Current Condition Recently diagnosed with polymyalgia rheumatica. 1 month on prednisone. R shoulder has not been responding to the prednisone as well as L shoulder and bilateral hamstring pain was worse before being on prednisone. Was doing a lot of yard work and had extreme pain the next day at the onset . Denies specific fall or injury. X-rays were clear per pt. Pt works from home at computer. Treatment Goals Patient/Caregiver Goals Decrease R shoulder pain Prior Functional Status Baseline Function- ADL's Independent Baseline Function- Mobility Independent Current Functional Impairments (Reported) Functional Limitations- ADL's Difficulty reaching out away from body with right arm, stiffness in morning Personal Factors Other Personal Factors That May Effect Polymyalgia rheumatica, Therapy/Recovery currently on prednisone PT-OP-C Subjective Start: 05/28/21 15:30 Freq: Status: Active Protocol: Document 10/29/21 10:28 AMB (Rec: 10/29/21 10:53 AMB [id number]) OP-PT Subjective Patient Comments Patient Comments Alvarez reports difficulty sleeping on his stomach is still a little difficult. Lifting out to the side can be difficult. PT-OP-J Posture/Palpation/Skin Start: 05/28/21 15:30 Freq: Status: Active Protocol: Document 06/11/21 15:38 AMB (Rec: 06/11/21 15:44 AMB [email or web address]) Posture Evaluation Comments Posture Comments Flat lumbar spine with forward head posture Palpation Assessment Location One Palpation Details Tenderness throughout musculature of R shoulder most significant at long head of biceps insertion PT-OP-K Range of Motion Start: 05/28/21 15:30 Freq: Status: Active Protocol: Document 09/12/21 13:34 AMB (Rec: 09/12/21 13:35 AMB [email or web address]) Shoulder Goniometric Range of Motion Shoulder Right Passive Testing Position Supine Flexion 165 Abduction 90 External Rotation at 90 degrees 40 Abduction Internal Rotation 90 PT-OP-M Strength Start: 05/28/21 15:30 Freq: Status: Active Protocol: Document 06/11/21 15:38 AMB (Rec: 06/11/21 15:44 AMB [email or web address]) Shoulder Strength Shoulder Manual Muscle Testing Right Flexion 3+ Fair+ Extension 4 Good Abduction (C5) 3+ Fair+ External Rotation 4 Good Internal Rotation 4+ Good+ Left Flexion 4 Good Extension 5 Normal Abduction (C5) 4 Good External Rotation 4+ Good+ Internal Rotation 5 Normal PT-OP-Q Treatments Start: 05/28/21 15:30 Freq: Status: Active Protocol: Document 10/29/21 16:10 AMB (Rec: 10/29/21 16:12 AMB [email or web address]) Therapeutic Exercises Prone Exercises 1 Prone Exercise Name I, Y, T Reps/Minutes 2x10 Comments AROM Sidelying Exercises sleeper stretch Reps/Minutes 30x5 Sitting Exercises 1 Sitting Exercise Name UT stretch Reps/Minutes 30x2 Standing Exercises pec stretch Standing Exercise Name doorway then corner Comments modified lower to decrease sharp pain Manual Therapy Treatment Soft Tissue Mobilization 1 Body Location supraspinatus, levator scap Mobilization Type Myofascial Release Intensity/Depth Moderate Comments left PT-OP-R Modalities Start: 05/28/21 15:30 Freq: Status: Active Protocol: Document 06/17/21 11:00 AMB (Rec: 06/17/21 11:55 AMB [id number]) Electric Stimulation Electric Stimulation Interferential Current (IFC) Body Location R shoulder Duration (Minutes) 10 Patient Position Hooklying Combined With Heat/Cold Cold Pack PT-OP-T Assessment and Plan Start: 05/28/21 15:30 Freq: Status: Active Protocol: Document 10/29/21 10:28 AMB (Rec: 10/29/21 10:53 AMB [id number]) Physical Therapy Assessment Goals Three Impairment Lifting Short Term Goal (STG) Roland will lift a jug of ice tea out of the fridge without increasing his shoulder pain. STG Duration MET Plant Wire Chief Goal (LTG) Roland will lift 10# from the floor to waist heigh without an increase in leg or shoulder pain. LTG Duration MET Two Impairment ROM Short Term Goal (STG) Roland will improve his AROM of his R shoulder to 170 degrees of abduction. STG Duration 4 weeks-- not met One Impairment HEP Short Term Goal (STG) Roland will be independent and consistent with a home exercise program for his bilateral shoulders and lower extremities. STG Duration MET Assessment Summary Assessment Alvarez is hoping to come back to PT in the new year when he has more insurance authorization, so will be on hold for the next month. He has so far met 3/4 of his goals. Physical Therapy Plan Next Visit Focus/Plan Next Note Type Treatment Note Next Visit Plan Follow up on prone I, Y, T, how is pt doing with sleeping on stomach
--- NOTE | 2021-12-09 11:13 | PT.OPDS ---
Current Diagnoses Pain in right shoulder (10/29/21) Pain in left shoulder (10/29/21) Low back pain (10/29/21) Visit Care Team Role Provider Type SLOANE Escobedo Referring Provider Advanced Osteopathic Medicine Teacher Specialty: Medical Address: [address] [place] [address], [facility] Email: [email or web address] Jordy Lawrence DO Attending Provider Physician Family Provider Primary Care Provider Specialty: Family Practice Address: [address] [place] [address], [id number] Email: Visit Number Visit Number 8 Discharge Summary PT-OP-B Current Condition Start: 05/28/21 15:30 Freq: Status: Active Protocol: Document 06/11/21 13:30 AMB (Rec: 06/11/21 13:48 AMB [id number]) Current Condition History of Current Condition Onset Date March 2021 Current Complaints R shoulder pain> L shoulder pain> B hamstring pain History of Current Condition Recently diagnosed with polymyalgia rheumatica. 1 month on prednisone. R shoulder has not been responding to the prednisone as well as L shoulder and bilateral hamstring pain was worse before being on prednisone. Was doing a lot of yard work and had extreme pain the next day at the onset . Denies specific fall or injury. X-rays were clear per pt. Pt works from home at computer. Treatment Goals Patient/Caregiver Goals Decrease R shoulder pain Prior Functional Status Baseline Function- ADL's Independent Baseline Function- Mobility Independent Current Functional Impairments (Reported) Functional Limitations- ADL's Difficulty reaching out away from body with right arm, stiffness in morning Personal Factors Other Personal Factors That May Effect Polymyalgia rheumatica, Therapy/Recovery currently on prednisone PT-OP-C Subjective Start: 05/28/21 15:30 Freq: Status: Active Protocol: Document 10/29/21 10:28 AMB (Rec: 10/29/21 10:53 AMB [id number]) OP-PT Subjective Patient Comments Patient Comments Alvarez reports difficulty sleeping on his stomach is still a little difficult. Lifting out to the side can be difficult. PT-OP-J Posture/Palpation/Skin Start: 05/28/21 15:30 Freq: Status: Active Protocol: Document 06/11/21 15:38 AMB (Rec: 06/11/21 15:44 AMB [email or web address]) Posture Evaluation Comments Posture Comments Flat lumbar spine with forward head posture Palpation Assessment Location One Palpation Details Tenderness throughout musculature of R shoulder most significant at long head of biceps insertion PT-OP-K Range of Motion Start: 05/28/21 15:30 Freq: Status: Active Protocol: Document 09/12/21 13:34 AMB (Rec: 09/12/21 13:35 AMB [email or web address]) Shoulder Goniometric Range of Motion Shoulder Right Passive Testing Position Supine Flexion 165 Abduction 90 External Rotation at 90 degrees 40 Abduction Internal Rotation 90 PT-OP-M Strength Start: 05/28/21 15:30 Freq: Status: Active Protocol: Document 06/11/21 15:38 AMB (Rec: 06/11/21 15:44 AMB [email or web address]) Shoulder Strength Shoulder Manual Muscle Testing Right Flexion 3+ Fair+ Extension 4 Good Abduction (C5) 3+ Fair+ External Rotation 4 Good Internal Rotation 4+ Good+ Left Flexion 4 Good Extension 5 Normal Abduction (C5) 4 Good External Rotation 4+ Good+ Internal Rotation 5 Normal PT-OP-T Assessment and Plan Start: 05/28/21 15:30 Freq: Status: Active Protocol: Document 12/09/21 11:08 AMB (Rec: 12/09/21 11:12 AMB [id number]) Physical Therapy Assessment Goals Three Impairment Lifting Short Term Goal (STG) Roland will lift a jug of ice tea out of the fridge without increasing his shoulder pain. STG Duration MET Solar Thermal Installer Goal (LTG) Roland will lift 10# from the floor to waist heigh without an increase in leg or shoulder pain. LTG Duration MET Two Impairment ROM Short Term Goal (STG) Roland will improve his AROM of his R shoulder to 170 degrees of abduction. STG Duration 4 weeks-- not met One Impairment HEP Short Term Goal (STG) Roland will be independent and consistent with a home exercise program for his bilateral shoulders and lower extremities. STG Duration MET Assessment Summary Assessment Alvarez had met 75% of his goals and was thinking of coming back to PT, but has called the PT clinic and wishes to d/c at this time, can come back in the future if needed. AT the time of his last appointment, his back was doign well, but we were continuing to work on shoulder ROM goals.
== END 2021-12-31 08:34 ==
LOC: PHYS 10:30
PROVIDERS: Family Provider Family Medicine; PCP Family Medicine; Referring Provider Registered Nurse; Visit Provider Family Medicine
DX: M25.511 Pain in right shoulder (principal); M25.512 Pain in left shoulder
CPT/HCPCS: 97014; 97110; 97140; 97162; G0283

== ENCOUNTER 2022-05-28 10:30 | Outpatient (RCR) | payer OTHER, MEDICAID, SELFPAY ==
--- NOTE | 2022-03-14 12:00 | PT.OPPOC ---
Physical, Occupational & Speech Therapy At [facility] Current Diagnoses Pain in right shoulder (03/14/22) Visit Care Team Role Provider Type Jordy Lawrence DO Attending Provider Physician Family Provider Primary Care Provider Referring Provider Specialty: Family Practice Address: [address] [place] [address], [id number] Email: Plan Of Care PT-OP-T Assessment and Plan Start: 03/14/22 10:36 Freq: Status: Active Protocol: Document 03/14/22 10:30 AMB (Rec: 03/15/22 09:27 AMB [id number]) Physical Therapy Assessment Rehab Potential Rehabilitation Potential Good Evaluation Complexity Number of Personal Factors/Comorbidities 1-2 Number of Body Systems Impaired 4 or More Clinical Presentation at Evaluation Stable Impairments Impairments Pain,Posture,ROM,Strength Goals Two Impairment ROM Short Term Goal (STG) Alvarez will improve his right shoulder abduction PROM to at least 160 degrees. STG Duration 4 weeks Retail And Promotions Coordinator Goal (LTG) Alvarez will improve his right shoulder external rotation PROM to at least 80 degrees ( at 90d abduction). LTG Duration 12 weeks One Impairment HEP Short Term Goal (STG) Alvarez will be independent with a HEP to improve his range of motion and strength. STG Duration 4 weeks Group Home Goal (LTG) Alvarez will swim for 30 minutes without shoulder pain. LTG Duration 12 weeks Assessment Summary Assessment Alvarez returns to physical therapy to focus on his right shoulder. He is now off of prednisone for his polymyalgia rheumatica but continues to have right shoulder weakness and stiffness especially at end range. His goal is to return to swimming and that would likely irritate his pain at this point given his range and strengthe impairments. He admits he has not kept up with this prior exercises, as he is busy moving right now, but his range of motion has improved since August when he was last seen. He will benefit from physical therapy to maximize his strength and range and help him return to community exercise. Physical Therapy Plan Frequency and Duration Frequency of Treatment 1x/Week Duration of Treatment 12 weeks Plan of Care Start Date 03/14/22 Plan of Care End Date 06/06/22 Therapeutic Interventions Therapeutic Interventions Home Exercise Program,Joint Mobilizations,Manual Therapy, Neuromuscular Re-education, Self-Care/Home Management, Therapeutic Activities, Therapeutic Exercises Modalities Cold Pack/Ice Massage,Electric Stimulation,Hot Packs Next Visit Focus/Plan Next Note Type Treatment Note Next Visit Plan Review HEP Plan of Care Dates Plan of Care Start Date 03/14/22 Plan of Care End Date 06/06/22 Electronically Signed by: Yun Orosco, MARIA ELENA 03/15/22 0928 Please Sign and Return: I have reviewed this Plan of Care and certify that the skilled therapy services above are required to meet the patient?s needs. Physician Signature Date Printed Name and Credentials Clinical Instructor Signature Printed Name and Credentials
--- NOTE | 2022-03-14 12:00 | PT.OIE ---
Current Diagnoses Pain in right shoulder (03/14/22) Past Medical History (Last Updated 09/10/21 @ 09:53 by Jordy Lawrence DO) Borderline high blood pressure Chicken pox Eczema Excessive weight gain Hip fracture (~1983) History of hernia surgery (~2008) History of hip surgery (~11/1983) Hyperlipidemia, mixed Lipoma of right upper extremity Lower back pain Myalgia PMR (polymyalgia rheumatica) Right shoulder pain Screen for colon cancer Screening for hyperlipidemia Screening for prostate cancer Shingles (~2008) Tinea corporis Upper extremity somatic dysfunction Varicose veins of left lower extremity Wheat allergy Past Surgical History (Last Reviewed 07/27/21 @ 10:58 by Shaq Carroll MD) Anesthesia History of hernia surgery (~2008) History of hip surgery (~11/1983) Visit Care Team Role Provider Type Jordy Lawrence DO Attending Provider Physician Family Provider Primary Care Provider Referring Provider Specialty: Family Practice Address: [address] [place] [address] Email: Physical Therapy Initial Evaluation PT-OP-A Visit Information Start: 03/14/22 10:36 Freq: Status: Active Protocol: Document 03/14/22 10:30 AMB (Rec: 03/14/22 10:50 AMB [id number]) Out-Patient Physical Therapy Visit Information Visit Information Visit Type Initial Evaluation Visit Start Time 10:30 Visit Stop Time 11:15 Total Visit Minutes 45 Visit Number 1 PT-OP-B Current Condition Start: 03/14/22 10:36 Freq: Status: Active Protocol: Document 03/14/22 10:30 AMB (Rec: 03/14/22 10:50 AMB [id number]) Current Condition History of Current Condition Onset Date 2020 Current Complaints Right shoulder History of Current Condition Anterior shoulder pain with internal rotation and extension. Has had dry needling and that has improved . Previous PMR. Is currently moving, so doing a lot of lifting and that seems to be going ok. Sleeping on the shoulder is about 90% of what it used to be- does tend to sleep on stomach and that was previously problematic, is better now but not 100%. Reaching into the back seat can be painful. Was taking prednisone 1mg until end of January. Treatment Goals Patient/Caregiver Goals Reach behind back, reach into backseat to lift a bag of groceries up. Be able to swim - forward crawl Personal Factors Other Personal Factors That May Effect History of PMR, just getting Therapy/Recovery off prednisone. PT-OP-C Subjective Start: 03/14/22 10:36 Freq: Status: Active Protocol: Document 03/14/22 10:30 AMB (Rec: 03/15/22 09:27 AMB [id number]) Patient Questionnaires Quick Dash- Upper Extremity Quick Dash UE Score 14 Quick Dash UE Impairment 1 to 19% Impaired (Score 1-19) PT-OP-J Posture/Palpation/Skin Start: 03/14/22 10:36 Freq: Status: Active Protocol: Document 03/14/22 10:30 AMB (Rec: 03/15/22 09:27 AMB [id number]) Posture Evaluation Comments Posture Comments Forward head, no scapular winging but mild thoracic kyphosis Palpation Assessment Location One Palpation Location Right shoulder Palpation Findings Tenderness Palpation Details Tenderness at biceps tendon, mild at scapular stabilizers PT-OP-K Range of Motion Start: 03/14/22 10:36 Freq: Status: Active Protocol: Document 03/14/22 10:30 AMB (Rec: 03/14/22 11:28 AMB [id number]) Shoulder Goniometric Range of Motion Shoulder Left Passive Shoulder ROM WFL Yes Testing Position Supine Flexion 180 External Rotation at 90 degrees 85 Abduction Right Passive Testing Position Supine Flexion 165 Extension 67 Abduction 145 External Rotation at 90 degrees 67 Abduction Internal Rotation 90 PT-OP-M Strength Start: 03/14/22 10:36 Freq: Status: Active Protocol: Document 03/14/22 10:30 AMB (Rec: 03/15/22 09:27 AMB [id number]) Shoulder Strength Shoulder Manual Muscle Testing Right Flexion 4+ Good+ Extension 5 Normal Abduction (C5) 4 Good External Rotation 4 Good Internal Rotation 4+ Good+ PT-OP-T Assessment and Plan Start: 03/14/22 10:36 Freq: Status: Active Protocol: Document 03/14/22 10:30 AMB (Rec: 03/15/22 09:27 AMB [id number]) Physical Therapy Assessment Rehab Potential Rehabilitation Potential Good Evaluation Complexity Number of Personal Factors/Comorbidities 1-2 Number of Body Systems Impaired 4 or More Clinical Presentation at Evaluation Stable Impairments Impairments Pain,Posture,ROM,Strength Goals Two Impairment ROM Short Term Goal (STG) Alvarez will improve his right shoulder abduction PROM to at least 160 degrees. STG Duration 4 weeks Care Home Goal (LTG) Alvarez will improve his right shoulder external rotation PROM to at least 80 degrees ( at 90d abduction). LTG Duration 12 weeks One Impairment HEP Short Term Goal (STG) Alvarez will be independent with a HEP to improve his range of motion and strength. STG Duration 4 weeks In House Cra Goal (LTG) Alvarez will swim for 30 minutes without shoulder pain. LTG Duration 12 weeks Assessment Summary Assessment Alvarez returns to physical therapy to focus on his right shoulder. He is now off of prednisone for his polymyalgia rheumatica but continues to have right shoulder weakness and stiffness especially at end range. His goal is to return to swimming and that would likely irritate his pain at this point given his range and strengthe impairments. He admits he has not kept up with this prior exercises, as he is busy moving right now, but his range of motion has improved since August when he was last seen. He will benefit from physical therapy to maximize his strength and range and help him return to community exercise. Physical Therapy Plan Frequency and Duration Frequency of Treatment 1x/Week Duration of Treatment 12 weeks Plan of Care Start Date 03/14/22 Plan of Care End Date 06/06/22 Therapeutic Interventions Therapeutic Interventions Home Exercise Program,Joint Mobilizations,Manual Therapy, Neuromuscular Re-education, Self-Care/Home Management, Therapeutic Activities, Therapeutic Exercises Modalities Cold Pack/Ice Massage,Electric Stimulation,Hot Packs Next Visit Focus/Plan Next Note Type Treatment Note Next Visit Plan Review HEP
--- NOTE | 2022-03-20 12:59 | PT.OTN ---
Current Diagnoses Pain in right shoulder (03/19/22) Physical Therapy Treatment Note PT-OP-A Visit Information Start: 03/14/22 10:36 Freq: Status: Active Protocol: Document 03/19/22 10:30 AMB (Rec: 03/19/22 11:21 AMB [id number]) Out-Patient Physical Therapy Visit Information Visit Information Visit Type Treatment Note Visit Start Time 10:30 Visit Stop Time 11:15 Total Visit Minutes 45 Visit Number 2 PT-OP-B Current Condition Start: 03/14/22 10:36 Freq: Status: Active Protocol: Document 03/14/22 10:30 AMB (Rec: 03/14/22 10:50 AMB [id number]) Current Condition History of Current Condition Onset Date 2020 Current Complaints Right shoulder History of Current Condition Anterior shoulder pain with internal rotation and extension. Has had dry needling and that has improved . Previous PMR. Is currently moving, so doing a lot of lifting and that seems to be going ok. Sleeping on the shoulder is about 90% of what it used to be- does tend to sleep on stomach and that was previously problematic, is better now but not 100%. Reaching into the back seat can be painful. Was taking prednisone 1mg until end of January. Treatment Goals Patient/Caregiver Goals Reach behind back, reach into backseat to lift a bag of groceries up. Be able to swim - forward crawl Personal Factors Other Personal Factors That May Effect History of PMR, just getting Therapy/Recovery of prednisone. PT-OP-C Subjective Start: 03/14/22 10:36 Freq: Status: Active Protocol: Document 03/19/22 10:30 AMB (Rec: 03/19/22 11:21 AMB [id number]) OP-PT Subjective Patient Comments Patient Comments Pt is doing ok, moving is going well, so hasn't really been working on exercises much yet. PT-OP-J Posture/Palpation/Skin Start: 03/14/22 10:36 Freq: Status: Active Protocol: Document 03/14/22 10:30 AMB (Rec: 03/15/22 09:27 AMB [id number]) Posture Evaluation Comments Posture Comments Forward head, no scapular winging but mild thoracic kyphosis Palpation Assessment Location One Palpation Location Right shoulder Palpation Findings Tenderness Palpation Details Tenderness at biceps tendon, mild at scapular stabilizers PT-OP-K Range of Motion Start: 03/14/22 10:36 Freq: Status: Active Protocol: Document 03/14/22 10:30 AMB (Rec: 03/14/22 11:28 AMB [id number]) Shoulder Goniometric Range of Motion Shoulder Left Passive Shoulder ROM WFL Yes Testing Position Supine Flexion 180 External Rotation at 90 degrees 85 Abduction Right Passive Testing Position Supine Flexion 165 Extension 67 Abduction 145 External Rotation at 90 degrees 67 Abduction Internal Rotation 90 PT-OP-M Strength Start: 03/14/22 10:36 Freq: Status: Active Protocol: Document 03/14/22 10:30 AMB (Rec: 03/15/22 09:27 AMB [id number]) Shoulder Strength Shoulder Manual Muscle Testing Right Flexion 4+ Good+ Extension 5 Normal Abduction (C5) 4 Good External Rotation 4 Good Internal Rotation 4+ Good+ PT-OP-Q Treatments Start: 03/14/22 10:36 Freq: Status: Active Protocol: Document 03/19/22 10:30 AMB (Rec: 03/19/22 11:21 AMB [id number]) Therapeutic Exercises Standing Exercises 1 Standing Exercise Name wall walk abduction Manual Therapy Treatment Soft Tissue Mobilization 1 Body Location R scapula Mobilization Type Myofascial Release Joint Mobilizations 1 Joint AP and inferior glide Comments at end range for flex, abd, ER , IR PT-OP-T Assessment and Plan Start: 03/14/22 10:36 Freq: Status: Active Protocol: Document 03/19/22 10:30 AMB (Rec: 03/19/22 11:21 AMB [id number]) Physical Therapy Assessment Goals Two Impairment ROM Short Term Goal (STG) Alvarez will improve his right shoulder abduction PROM to at least 160 degrees. STG Duration 4 weeks Communications Billing Analyst Goal (LTG) Alvarez will improve his right shoulder external rotation PROM to at least 80 degrees ( at 90d abduction). LTG Duration 12 weeks One Impairment HEP Short Term Goal (STG) Alvarez will be independent with a HEP to improve his range of motion and strength. STG Duration 4 weeks Communications Billing Analyst Goal (LTG) Alvarez will swim for 30 minutes without shoulder pain. LTG Duration 12 weeks Assessment Summary Assessment Alvarez is doing well, worked on end range flexion, abduction and external rotation. Tolerated manual well with improved range at end of session. Physical Therapy Plan Next Visit Focus/Plan Next Note Type Treatment Note Next Visit Plan Continue manual therapy and progress strengthening/ stretching
--- NOTE | 2022-03-25 13:49 | PT.OTN ---
Current Diagnoses Pain in right shoulder (03/25/22) Physical Therapy Treatment Note PT-OP-A Visit Information Start: 03/14/22 10:36 Freq: Status: Active Protocol: Document 03/25/22 13:00 AMB (Rec: 03/25/22 13:49 AMB [id number]) Out-Patient Physical Therapy Visit Information Visit Information Visit Type Treatment Note Visit Start Time 10:30 Visit Stop Time 11:15 Total Visit Minutes 45 Visit Number 3 PT-OP-B Current Condition Start: 03/14/22 10:36 Freq: Status: Active Protocol: Document 03/14/22 10:30 AMB (Rec: 03/14/22 10:50 AMB [id number]) Current Condition History of Current Condition Onset Date 2020 Current Complaints Right shoulder History of Current Condition Anterior shoulder pain with internal rotation and extension. Has had dry needling and that has improved . Previous PMR. Is currently moving, so doing a lot of lifting and that seems to be going ok. Sleeping on the shoulder is about 90% of what it used to be- does tend to sleep on stomach and that was previously problematic, is better now but not 100%. Reaching into the back seat can be painful. Was taking prednisone 1mg until end of January. Treatment Goals Patient/Caregiver Goals Reach behind back, reach into backseat to lift a bag of groceries up. Be able to swim - forward crawl Personal Factors Other Personal Factors That May Effect History of PMR, just getting Therapy/Recovery of prednisone. PT-OP-C Subjective Start: 03/14/22 10:36 Freq: Status: Active Protocol: Document 03/25/22 13:00 AMB (Rec: 03/25/22 13:49 AMB [id number]) OP-PT Subjective Patient Comments Patient Comments Pt is noticing the shoulder is doing ok with all the moving, hasn't gone swimming yet. PT-OP-J Posture/Palpation/Skin Start: 03/14/22 10:36 Freq: Status: Active Protocol: Document 03/14/22 10:30 AMB (Rec: 03/15/22 09:27 AMB [id number]) Posture Evaluation Comments Posture Comments Forward head, no scapular winging but mild thoracic kyphosis Palpation Assessment Location One Palpation Location Right shoulder Palpation Findings Tenderness Palpation Details Tenderness at biceps tendon, mild at scapular stabilizers PT-OP-K Range of Motion Start: 03/14/22 10:36 Freq: Status: Active Protocol: Document 03/14/22 10:30 AMB (Rec: 03/14/22 11:28 AMB [id number]) Shoulder Goniometric Range of Motion Shoulder Left Passive Shoulder ROM WFL Yes Testing Position Supine Flexion 180 External Rotation at 90 degrees 85 Abduction Right Passive Testing Position Supine Flexion 165 Extension 67 Abduction 145 External Rotation at 90 degrees 67 Abduction Internal Rotation 90 PT-OP-M Strength Start: 03/14/22 10:36 Freq: Status: Active Protocol: Document 03/14/22 10:30 AMB (Rec: 03/15/22 09:27 AMB [id number]) Shoulder Strength Shoulder Manual Muscle Testing Right Flexion 4+ Good+ Extension 5 Normal Abduction (C5) 4 Good External Rotation 4 Good Internal Rotation 4+ Good+ PT-OP-Q Treatments Start: 03/14/22 10:36 Freq: Status: Active Protocol: Document 03/25/22 13:00 AMB (Rec: 03/25/22 13:49 AMB [id number]) Cardio Equipment Upper Body Ergometer (UBE) Duration (Minutes) 5 Seat Position 13 Therapeutic Exercises Supine Exercises shoulder extension Resistance AROM Reps/Minutes 10 Comments from full flexion Standing Exercises t band IR Resistance #1 Reps/Minutes 10 Comments at 90 degrees abduction Manual Therapy Treatment Soft Tissue Mobilization 1 Body Location R scapula Mobilization Type Myofascial Release Joint Mobilizations 1 Joint AP and inferior glide Comments at end range for flex, abd, ER , IR PT-OP-T Assessment and Plan Start: 03/14/22 10:36 Freq: Status: Active Protocol: Document 03/25/22 13:00 AMB (Rec: 03/25/22 13:49 AMB [id number]) Physical Therapy Assessment Goals Two Impairment ROM Short Term Goal (STG) Alvarez will improve his right shoulder abduction PROM to at least 160 degrees. STG Duration 4 weeks Senior Care Goal (LTG) Alvarez will improve his right shoulder external rotation PROM to at least 80 degrees ( at 90d abduction). LTG Duration 12 weeks One Impairment HEP Short Term Goal (STG) Alvarez will be independent with a HEP to improve his range of motion and strength. STG Duration 4 weeks Senior Care Goal (LTG) Alvarez will swim for 30 minutes without shoulder pain. LTG Duration 12 weeks Assessment Summary Assessment Alvarez is noticing weakness at end range and some pain with end range abduction and external rotation. Physical Therapy Plan Next Visit Focus/Plan Next Note Type Treatment Note Next Visit Plan Continue manual therapy and progress strengthening/ stretching
--- NOTE | 2022-04-09 12:34 | PT.OTN ---
Current Diagnoses Pain in right shoulder (04/09/22) Physical Therapy Treatment Note PT-OP-A Visit Information Start: 03/14/22 10:36 Freq: Status: Active Protocol: Document 04/09/22 11:45 MA (Rec: 04/09/22 12:34 MA [id number]) Out-Patient Physical Therapy Visit Information Visit Information Visit Type Treatment Note Visit Start Time 11:45 Visit Stop Time 12:25 Total Visit Minutes 40 Visit Number 4 Number of INSPECTOR [employer]ACH[employer] Visits 1 PT-OP-B Current Condition Start: 03/14/22 10:36 Freq: Status: Active Protocol: Document 03/14/22 10:30 AMB (Rec: 03/14/22 10:50 AMB [id number]) Current Condition History of Current Condition Onset Date 2020 Current Complaints Right shoulder History of Current Condition Anterior shoulder pain with internal rotation and extension. Has had dry needling and that has improved . Previous PMR. Is currently moving, so doing a lot of lifting and that seems to be going ok. Sleeping on the shoulder is about 90% of what it used to be- does tend to sleep on stomach and that was previously problematic, is better now but not 100%. Reaching into the back seat can be painful. Was taking prednisone 1mg until end of January. Treatment Goals Patient/Caregiver Goals Reach behind back, reach into backseat to lift a bag of groceries up. Be able to swim - forward crawl Personal Factors Other Personal Factors That May Effect History of PMR, just getting Therapy/Recovery of prednisone. PT-OP-C Subjective Start: 03/14/22 10:36 Freq: Status: Active Protocol: Document 04/09/22 11:45 MA (Rec: 04/09/22 12:34 MA [id number]) OP-PT Subjective Patient Comments Patient Comments I was able to move sod this week while helping a friend with his yard. My legs are sore by my shoulder is okay PT-OP-J Posture/Palpation/Skin Start: 03/14/22 10:36 Freq: Status: Active Protocol: Document 03/14/22 10:30 AMB (Rec: 03/15/22 09:27 AMB [id number]) Posture Evaluation Comments Posture Comments Forward head, no scapular winging but mild thoracic kyphosis Palpation Assessment Location One Palpation Location Right shoulder Palpation Findings Tenderness Palpation Details Tenderness at biceps tendon, mild at scapular stabilizers PT-OP-K Range of Motion Start: 03/14/22 10:36 Freq: Status: Active Protocol: Document 03/14/22 10:30 AMB (Rec: 03/14/22 11:28 AMB [id number]) Shoulder Goniometric Range of Motion Shoulder Left Passive Shoulder ROM WFL Yes Testing Position Supine Flexion 180 External Rotation at 90 degrees 85 Abduction Right Passive Testing Position Supine Flexion 165 Extension 67 Abduction 145 External Rotation at 90 degrees 67 Abduction Internal Rotation 90 PT-OP-M Strength Start: 03/14/22 10:36 Freq: Status: Active Protocol: Document 03/14/22 10:30 AMB (Rec: 03/15/22 09:27 AMB [id number]) Shoulder Strength Shoulder Manual Muscle Testing Right Flexion 4+ Good+ Extension 5 Normal Abduction (C5) 4 Good External Rotation 4 Good Internal Rotation 4+ Good+ PT-OP-Q Treatments Start: 03/14/22 10:36 Freq: Status: Active Protocol: Document 04/09/22 11:45 MA (Rec: 04/09/22 12:34 MA [id number]) Cardio Equipment Upper Body Ergometer (UBE) Duration (Minutes) 6 RPM 65 Seat Position 13 Height 3.5 Other fwd/back 1 min each Therapeutic Exercises Supine Exercises shoulder extension Resistance AROM Reps/Minutes 10 Comments from full flexion Sitting Exercises Stretch Sitting Exercise Name 1. post-capsule stretch 2. tricep stretch Side right Reps/Minutes 2x30 ea Manual Therapy Treatment Soft Tissue Mobilization 1 Body Location R scapula Mobilization Type Myofascial Release Joint Mobilizations 1 Joint inferior glide Comments with active ER/IR PT-OP-T Assessment and Plan Start: 03/14/22 10:36 Freq: Status: Active Protocol: Document 04/09/22 11:45 MA (Rec: 04/09/22 12:34 MA [id number]) Physical Therapy Assessment Goals Two Impairment ROM Short Term Goal (STG) Alvarez will improve his right shoulder abduction PROM to at least 160 degrees. STG Duration 4 weeks Furniture Duster Goal (LTG) Alvarez will improve his right shoulder external rotation PROM to at least 80 degrees ( at 90d abduction). LTG Duration 12 weeks One Impairment HEP Short Term Goal (STG) Alvarez will be independent with a HEP to improve his range of motion and strength. STG Duration 4 weeks Furniture Duster Goal (LTG) Alvarez will swim for 30 minutes without shoulder pain. LTG Duration 12 weeks Assessment Summary Assessment Pt has improved ER/IR after manual work. He continues to have the most pain with IR when reaching behind back. Added posterior capsule stretch and tricep stretch to HEP for improved R shd mobility. Physical Therapy Plan Frequency and Duration Frequency of Treatment 1x/Week Duration of Treatment 12 weeks Plan of Care Start Date 03/14/22 Plan of Care End Date 06/06/22 Therapeutic Interventions Therapeutic Interventions Home Exercise Program,Joint Mobilizations,Manual Therapy, Neuromuscular Re-education, Self-Care/Home Management, Therapeutic Activities, Therapeutic Exercises Modalities Cold Pack/Ice Massage,Electric Stimulation,Hot Packs Next Visit Focus/Plan Next Note Type Treatment Note Next Visit Plan Continue manual therapy and progress strengthening/ stretching
--- NOTE | 2022-04-29 12:06 | PT.OTN ---
Current Diagnoses Pain in right shoulder (04/29/22) Physical Therapy Treatment Note PT-OP-A Visit Information Start: 03/14/22 10:36 Freq: Status: Active Protocol: Document 04/29/22 11:15 AMB (Rec: 04/29/22 11:54 AMB [id number]) Out-Patient Physical Therapy Visit Information Visit Information Visit Type Treatment Note Visit Start Time 11:15 Visit Stop Time 12:00 Total Visit Minutes 45 Visit Number 5 PT-OP-B Current Condition Start: 03/14/22 10:36 Freq: Status: Active Protocol: Document 03/14/22 10:30 AMB (Rec: 03/14/22 10:50 AMB [id number]) Current Condition History of Current Condition Onset Date 2020 Current Complaints Right shoulder History of Current Condition Anterior shoulder pain with internal rotation and extension. Has had dry needling and that has improved . Previous PMR. Is currently moving, so doing a lot of lifting and that seems to be going ok. Sleeping on the shoulder is about 90% of what it used to be- does tend to sleep on stomach and that was previously problematic, is better now but not 100%. Reaching into the back seat can be painful. Was taking prednisone 1mg until end of January. Treatment Goals Patient/Caregiver Goals Reach behind back, reach into backseat to lift a bag of groceries up. Be able to swim - forward crawl Personal Factors Other Personal Factors That May Effect History of PMR, just getting Therapy/Recovery of prednisone. PT-OP-C Subjective Start: 03/14/22 10:36 Freq: Status: Active Protocol: Document 04/29/22 11:15 AMB (Rec: 04/29/22 11:54 AMB [id number]) OP-PT Subjective Patient Comments Patient Comments Has not gone swimming yet. Shoulder is feeling ok. PT-OP-J Posture/Palpation/Skin Start: 03/14/22 10:36 Freq: Status: Active Protocol: Document 03/14/22 10:30 AMB (Rec: 03/15/22 09:27 AMB [id number]) Posture Evaluation Comments Posture Comments Forward head, no scapular winging but mild thoracic kyphosis Palpation Assessment Location One Palpation Location Right shoulder Palpation Findings Tenderness Palpation Details Tenderness at biceps tendon, mild at scapular stabilizers PT-OP-K Range of Motion Start: 03/14/22 10:36 Freq: Status: Active Protocol: Document 03/14/22 10:30 AMB (Rec: 03/14/22 11:28 AMB [id number]) Shoulder Goniometric Range of Motion Shoulder Left Passive Shoulder ROM WFL Yes Testing Position Supine Flexion 180 External Rotation at 90 degrees 85 Abduction Right Passive Testing Position Supine Flexion 165 Extension 67 Abduction 145 External Rotation at 90 degrees 67 Abduction Internal Rotation 90 PT-OP-M Strength Start: 03/14/22 10:36 Freq: Status: Active Protocol: Document 03/14/22 10:30 AMB (Rec: 03/15/22 09:27 AMB [id number]) Shoulder Strength Shoulder Manual Muscle Testing Right Flexion 4+ Good+ Extension 5 Normal Abduction (C5) 4 Good External Rotation 4 Good Internal Rotation 4+ Good+ PT-OP-Q Treatments Start: 03/14/22 10:36 Freq: Status: Active Protocol: Document 04/29/22 11:15 AMB (Rec: 04/29/22 11:54 AMB [id number]) Therapeutic Exercises Supine Exercises shoulder extension Resistance AROM Reps/Minutes 10 Comments from full flexion Sitting Exercises Stretch Sitting Exercise Name 1. post-capsule stretch 2. tricep stretch Side right Reps/Minutes 2x30 ea Standing Exercises shoulder extension Resistance #3 t band Reps/Minutes 2x10 t band IR Resistance #3 Reps/Minutes 2x10 Comments at 0 degrees abduction 1 Standing Exercise Name wall walk abduction Manual Therapy Treatment Soft Tissue Mobilization 1 Body Location R scapula Mobilization Type Myofascial Release Joint Mobilizations 1 Joint inferior glide Comments with active ER/IR PT-OP-T Assessment and Plan Start: 03/14/22 10:36 Freq: Status: Active Protocol: Document 04/29/22 11:15 AMB (Rec: 04/29/22 11:54 AMB [id number]) Physical Therapy Assessment Goals Two Impairment ROM Short Term Goal (STG) Alvarez will improve his right shoulder abduction PROM to at least 160 degrees. STG Duration 4 weeks Golf Course Patroller Goal (LTG) Alvarez will improve his right shoulder external rotation PROM to at least 80 degrees ( at 90d abduction). LTG Duration 12 weeks One Impairment HEP Short Term Goal (STG) Alvarez will be independent with a HEP to improve his range of motion and strength. STG Duration 4 weeks Skilled Nursing Goal (LTG) Alvarez will swim for 30 minutes without shoulder pain. LTG Duration 12 weeks Assessment Summary Assessment Pt is stating that he feels like he can do most anything with the shoulder with the exception of reaching up or out into horizontal abduction. Physical Therapy Plan Next Visit Focus/Plan Next Note Type Treatment Note Next Visit Plan Review new HEP: post cap stretch, tricep stretch. Continue manual therapy and progress strengthening/ stretching
--- NOTE | 2022-05-14 11:11 | PT.OTN ---
Current Diagnoses Pain in right shoulder (05/14/22) Physical Therapy Treatment Note PT-OP-A Visit Information Start: 03/14/22 10:36 Freq: Status: Active Protocol: Document 05/14/22 10:35 AMB (Rec: 05/14/22 10:54 AMB [id number]) Out-Patient Physical Therapy Visit Information Visit Information Visit Type Treatment Note Visit Start Time 11:15 Visit Stop Time 12:00 Total Visit Minutes 45 Visit Number 6 PT-OP-B Current Condition Start: 03/14/22 10:36 Freq: Status: Active Protocol: Document 03/14/22 10:30 AMB (Rec: 03/14/22 10:50 AMB [id number]) Current Condition History of Current Condition Onset Date 2020 Current Complaints Right shoulder History of Current Condition Anterior shoulder pain with internal rotation and extension. Has had dry needling and that has improved . Previous PMR. Is currently moving, so doing a lot of lifting and that seems to be going ok. Sleeping on the shoulder is about 90% of what it used to be- does tend to sleep on stomach and that was previously problematic, is better now but not 100%. Reaching into the back seat can be painful. Was taking prednisone 1mg until end of January. Treatment Goals Patient/Caregiver Goals Reach behind back, reach into backseat to lift a bag of groceries up. Be able to swim - forward crawl Personal Factors Other Personal Factors That May Effect History of PMR, just getting Therapy/Recovery of prednisone. PT-OP-C Subjective Start: 03/14/22 10:36 Freq: Status: Active Protocol: Document 05/14/22 10:35 AMB (Rec: 05/14/22 10:54 AMB [id number]) OP-PT Subjective Patient Comments Patient Comments Last little bit of abduction is the only bit that pt is having difficulty with. PT-OP-J Posture/Palpation/Skin Start: 03/14/22 10:36 Freq: Status: Active Protocol: Document 03/14/22 10:30 AMB (Rec: 03/15/22 09:27 AMB [id number]) Posture Evaluation Comments Posture Comments Forward head, no scapular winging but mild thoracic kyphosis Palpation Assessment Location One Palpation Location Right shoulder Palpation Findings Tenderness Palpation Details Tenderness at biceps tendon, mild at scapular stabilizers PT-OP-K Range of Motion Start: 03/14/22 10:36 Freq: Status: Active Protocol: Document 03/14/22 10:30 AMB (Rec: 03/14/22 11:28 AMB [id number]) Shoulder Goniometric Range of Motion Shoulder Left Passive Shoulder ROM WFL Yes Testing Position Supine Flexion 180 External Rotation at 90 degrees 85 Abduction Right Passive Testing Position Supine Flexion 165 Extension 67 Abduction 145 External Rotation at 90 degrees 67 Abduction Internal Rotation 90 PT-OP-M Strength Start: 03/14/22 10:36 Freq: Status: Active Protocol: Document 03/14/22 10:30 AMB (Rec: 03/15/22 09:27 AMB [id number]) Shoulder Strength Shoulder Manual Muscle Testing Right Flexion 4+ Good+ Extension 5 Normal Abduction (C5) 4 Good External Rotation 4 Good Internal Rotation 4+ Good+ PT-OP-Q Treatments Start: 03/14/22 10:36 Freq: Status: Active Protocol: Document 05/14/22 10:35 AMB (Rec: 05/14/22 10:54 AMB [id number]) Therapeutic Exercises Sitting Exercises Stretch Sitting Exercise Name 1. post-capsule stretch 2. tricep stretch Side right Reps/Minutes 2x30 ea Standing Exercises t band ER Resistance #2 Reps/Minutes 2x10 abduction Reps/Minutes 2x10 Comments to 90 degrees shoulder extension Resistance #3 t band Reps/Minutes 2x10 t band IR Resistance #3 Reps/Minutes 2x10 Comments at 0 degrees abduction Manual Therapy Treatment Soft Tissue Mobilization 1 Body Location R scapula Mobilization Type Myofascial Release Joint Mobilizations 1 Joint inferior glide Comments with active ER/IR PT-OP-T Assessment and Plan Start: 03/14/22 10:36 Freq: Status: Active Protocol: Document 05/14/22 10:35 AMB (Rec: 05/14/22 10:54 AMB [id number]) Physical Therapy Assessment Goals Two Impairment ROM Short Term Goal (STG) Alvarez will improve his right shoulder abduction PROM to at least 160 degrees. STG Duration 4 weeks Domestic Travel Consultant Goal (LTG) Alvarez will improve his right shoulder external rotation PROM to at least 80 degrees ( at 90d abduction). LTG Duration 12 weeks One Impairment HEP Short Term Goal (STG) Alvarez will be independent with a HEP to improve his range of motion and strength. STG Duration 4 weeks Fpc Goal (LTG) lAvarez will swim for 30 minutes without shoulder pain. LTG Duration 12 weeks Assessment Summary Assessment Pt does fatigue with t band exercises, but otherwise is doing well. Physical Therapy Plan Next Visit Focus/Plan Next Note Type Discharge Summary Next Visit Plan Possible d/c next visit if continuing to do well
--- NOTE | 2022-05-28 11:13 | PT.OTN ---
Current Diagnoses Pain in right shoulder (05/28/22) Physical Therapy Treatment Note PT-OP-A Visit Information Start: 03/14/22 10:36 Freq: Status: Active Protocol: Document 05/28/22 10:32 AMB (Rec: 05/28/22 11:13 AMB [id number]) Out-Patient Physical Therapy Visit Information Visit Information Visit Type Treatment Note Visit Start Time 11:15 Visit Stop Time 12:00 Total Visit Minutes 45 Visit Number 7 PT-OP-B Current Condition Start: 03/14/22 10:36 Freq: Status: Active Protocol: Document 03/14/22 10:30 AMB (Rec: 03/14/22 10:50 AMB [id number]) Current Condition History of Current Condition Onset Date 2020 Current Complaints Right shoulder History of Current Condition Anterior shoulder pain with internal rotation and extension. Has had dry needling and that has improved . Previous PMR. Is currently moving, so doing a lot of lifting and that seems to be going ok. Sleeping on the shoulder is about 90% of what it used to be- does tend to sleep on stomach and that was previously problematic, is better now but not 100%. Reaching into the back seat can be painful. Was taking prednisone 1mg until end of January. Treatment Goals Patient/Caregiver Goals Reach behind back, reach into backseat to lift a bag of groceries up. Be able to swim - forward crawl Personal Factors Other Personal Factors That May Effect History of PMR, just getting Therapy/Recovery of prednisone. PT-OP-C Subjective Start: 03/14/22 10:36 Freq: Status: Active Protocol: Document 05/28/22 10:32 AMB (Rec: 05/28/22 11:13 AMB [id number]) OP-PT Subjective Patient Comments Patient Comments Went swimming on Thursday. Forward crawl wasn't too bad, but breast stroke he could feel in the shoulder, was able to do 30 min. PT-OP-J Posture/Palpation/Skin Start: 03/14/22 10:36 Freq: Status: Active Protocol: Document 03/14/22 10:30 AMB (Rec: 03/15/22 09:27 AMB [id number]) Posture Evaluation Comments Posture Comments Forward head, no scapular winging but mild thoracic kyphosis Palpation Assessment Location One Palpation Location Right shoulder Palpation Findings Tenderness Palpation Details Tenderness at biceps tendon, mild at scapular stabilizers PT-OP-K Range of Motion Start: 03/14/22 10:36 Freq: Status: Active Protocol: Document 03/14/22 10:30 AMB (Rec: 03/14/22 11:28 AMB [id number]) Shoulder Goniometric Range of Motion Shoulder Left Passive Shoulder ROM WFL Yes Testing Position Supine Flexion 180 External Rotation at 90 degrees 85 Abduction Right Passive Testing Position Supine Flexion 165 Extension 67 Abduction 145 External Rotation at 90 degrees 67 Abduction Internal Rotation 90 PT-OP-M Strength Start: 03/14/22 10:36 Freq: Status: Active Protocol: Document 03/14/22 10:30 AMB (Rec: 03/15/22 09:27 AMB [id number]) Shoulder Strength Shoulder Manual Muscle Testing Right Flexion 4+ Good+ Extension 5 Normal Abduction (C5) 4 Good External Rotation 4 Good Internal Rotation 4+ Good+ PT-OP-Q Treatments Start: 03/14/22 10:36 Freq: Status: Active Protocol: Document 05/28/22 10:32 AMB (Rec: 05/28/22 11:13 AMB [id number]) Therapeutic Exercises Standing Exercises cross body Reps/Minutes 30x2 pec stretch Reps/Minutes 30x2 Manual Therapy Treatment Soft Tissue Mobilization 1 Body Location pecs/deltoid Mobilization Type Myofascial Release Joint Mobilizations 1 Joint inferior glide Comments with active ER/IR PT-OP-T Assessment and Plan Start: 03/14/22 10:36 Freq: Status: Active Protocol: Document 05/28/22 10:32 AMB (Rec: 05/28/22 11:13 AMB [id number]) Physical Therapy Assessment Goals Two Impairment ROM Short Term Goal (STG) Alvarez will improve his right shoulder abduction PROM to at least 160 degrees. STG Duration 170 Shelter Goal (LTG) Alvarez will improve his right shoulder external rotation PROM to at least 80 degrees ( at 90d abduction). LTG Duration 75 degrees One Impairment HEP Short Term Goal (STG) Alvarez will be independent with a HEP to improve his range of motion and strength. STG Duration MET Shelter Goal (LTG) Alvarez will swim for 30 minutes without shoulder pain. LTG Duration MET Assessment Summary Assessment Pt has improved so that he feels he is 98% of normal. He has been able to return to swimming. He will continue with his stretching program at home and continue to swim in the community, not really having problems with home issues, can feel a little of discomfort with end range ER and IR, but feels ready to deal with that at home. Physical Therapy Plan Discharge Physical Therapy Discharge Reasons Goals Met
== END 2022-06-23 14:40 ==
LOC: PHYS 10:30
PROVIDERS: Family Provider Family Medicine; PCP Family Medicine; Referring Provider Family Medicine; Visit Provider Family Medicine
DX: M25.511 Pain in right shoulder (principal)
CPT/HCPCS: 97110; 97140; 97161

== ENCOUNTER → 2023-03-16 10:49 | Outpatient (CLI) | payer OTHER, MEDICAID, SELFPAY | PROVIDERS: Family Provider Family Medicine; PCP Family Medicine; Visit Provider Physician Assistant | DX: J02.9 Acute pharyngitis, unspecified (principal) | CPT/HCPCS: 87070 ==

== ENCOUNTER → 2024-03-02 16:26 | Outpatient (CLI) | payer OTHER, MEDICAID, SELFPAY ==
--- NOTE | 2024-03-02 16:27 | DI.RAD.S_ITS ---
PROCEDURE: XR CHEST 2V INDICATIONS: Wheezing TECHNIQUE: 2 views of the chest were acquired. COMPARISON: [facility], , CHEST 2 VIEW, 03/26/2012, 10:54. FINDINGS: Surgical changes and devices: None. Lungs and pleura: Lungs are clear. No pleural effusions or pneumothorax. Mediastinum: Mediastinal contours are normal. Heart size is normal. Bones and chest wall: No suspicious bony abnormalities. Soft tissues appear unremarkable. IMPRESSION: No acute cardiopulmonary abnormality is seen. Dictated by: Christopher Spence M.D. on 03/03/2024 at 9:14 Approved by: Christopher Spence M.D. on 03/03/2024 at 9:14
== END ==
PROVIDERS: Family Provider Family Medicine; PCP Family Medicine; Referring Provider Physician Assistant; Visit Provider Physician Assistant
DX: R06.2 Wheezing (principal)
CPT/HCPCS: 71046

== ENCOUNTER → 2024-03-04 09:49 | Outpatient (CLI) | payer OTHER, MEDICAID, SELFPAY | LOC: RESP 09:50 | PROVIDERS: Family Provider Family Medicine; PCP Family Medicine; Referring Provider Physician Assistant; Visit Provider Physician Assistant | DX: R06.2 Wheezing (principal); J98.8 Other specified respiratory disorders | CPT/HCPCS: 94060; 94726; 94729 ==

== ENCOUNTER → 2024-08-22 09:48 | Outpatient (CLI) | payer OTHER, MEDICAID, SELFPAY ==
[2024-08-22 11:08] LABS: Add Manual Diff / Slide Review NO; Basophils Absolute Auto 0 /uL (0-100); Basophils Percent Auto 0.3 % (0-2); Eosinophils Absolute Auto 100 /uL (0-450); Eosinophils Percent Auto 1.5 % (2-4); Hematocrit 48.6 % (41-53); Hemoglobin 16.8 g/dL (13.5-17.5); Lymphocytes Absolute Auto 1400 /uL (1100-4500); Lymphocytes Percent Auto 20.2 % (25-40); Mean Corpuscular HGB Conc 34.5 % (30-36); Mean Corpuscular Hemoglobin 31.7 PG (26-34); Mean Corpuscular Volume 91.8 fL (80-100); Monocytes Absolute Auto 500 /uL (0-900); Monocytes Percent Auto 7.7 % (3-14); Neutrophils Absolute Auto 4800 /uL (1500-7000); Neutrophils Percent Auto 70.3 % (50-75); Platelet Count 178 X10^3/uL (150-400); Red Cell Distribution Width 12.4 % (11.6-14.8); White Blood Cell Count 6.8 X10^3/uL (4.5-11.0)
[2024-08-22 11:23] LABS: Erythrocyte Sedimentation Rate 2 MM/HR (0-15)
[2024-08-22 11:32] LABS: Alanine Aminotransferase 19 IU/L (<50); Albumin Globulin Ratio 1.7 (1.0-2.8); Alkaline Phosphatase 84 U/L (38-126); Aspartate Aminotransferase 23 IU/L (17-59); BUN Creatinine Ratio 21.5 (6-22); Bilirubin Total 1.1 mg/dL (0.2-1.3); Blood Urea Nitrogen 20 mg/dL (9-20); C-Reactive Protein Quant < 0.5 mg/dL (<1.0); Carbon Dioxide 29 mmol/L (22-32); Chloride 102 mmol/L (98-107); Cholesterol 247 mg/dL (140-199); Estimated Glomerular Filt Rate > 60 mL/min (>60); Globulin 2.4 g/dL (1.7-4.1); Glucose 91 mg/dL (80-110); HDL Cholesterol 39 mg/dL (40-60); HEMOLYSIS < 15 (0-50); LDL Cholesterol Calculated 164 mg/dL (<100); Potassium 4.3 mmol/L (3.4-5.1); Sodium 137 mmol/L (137-145); Total Protein 6.4 g/dL (6.3-8.2); Triglycerides 218 mg/dL (35-150)
[2024-08-22 12:00] LABS: Prostate Specific Antigen Scrn 2.04 ng/mL (0.1-4.0)
== END ==
LOC: LAB 09:49
PROVIDERS: Family Provider Family Medicine; PCP Family Medicine; Referring Provider Family Medicine; Visit Provider Family Medicine
DX: Z12.5 Encounter for screening for malignant neoplasm of prostate (principal); R03.0 Elevated blood-pressure reading, without diagnosis of hypertension; E78.2 Mixed hyperlipidemia; M35.3 Polymyalgia rheumatica
CPT/HCPCS: 36415; 80053; 80061; 85025; 85651; 86140; G0103

== ENCOUNTER 2025-06-07 13:45 | Outpatient (RCR) | payer OTHER, SELFPAY ==
--- NOTE | 2025-02-09 17:51 | PT.OIE ---
Current Diagnoses Pain in right knee (02/09/25) Stiffness of right knee, not elsewhere classified (02/09/25) Other abnormalities of gait and mobility (02/09/25) Displaced comminuted fracture of right patella, subsequent encounter for closed fracture with routine healing (02/09/25) Past Medical History (Last Updated 08/25/24 @ 12:02 by David Lawrence DO) Borderline high blood pressure Chicken pox Eczema Excessive weight gain Expiratory wheezing Hip fracture (~1983) Hyperlipidemia, mixed Lipoma of right upper extremity Lower back pain Myalgia PMR (polymyalgia rheumatica) Right shoulder pain Screen for colon cancer Screening for prostate cancer Shingles (~2008) Tinea corporis Upper extremity somatic dysfunction Varicose veins of left lower extremity Wheat allergy Past Surgical History (Last Reviewed 03/16/23 @ 11:24 by Rosy Bennett PA-C) Anesthesia History of hernia surgery (~2008) History of hip surgery (~11/1983) Visit Care Team Role Provider Type Susu Kemp PA-C Referring Provider Non-Staff Specialty: Orthopedic Surgery Address: [address] [place] [address], [id number] Email: David Lawrence DO Family Provider Physician Primary Care Provider Specialty: Family Practice Address: [address] [place] [address], [id number] Email: Alan Riley DO Attending Provider Non-Staff Specialty: Orthopedics Address: [address] [place] [address], [phone] Email: Physical Therapy Initial Evaluation PT-OP-A Visit Information Start: 02/09/25 15:48 Freq: Status: Active Protocol: Document 02/09/25 12:20 DCW (Rec: 02/09/25 16:00 DCW [id number]) Out-Patient Physical Therapy Visit Information Visit Information Visit Type Initial Evaluation Visit Start Time 12:20 Visit Stop Time 13:00 Visit Number 1 Number of DATA PROCESSING SPECIALIST Visits 0 Evaluation Information Evaluation Date 02/09/25 PT-OP-B Current Condition Start: 02/09/25 15:48 Freq: Status: Active Protocol: Document 02/09/25 12:20 DCW (Rec: 02/09/25 16:00 DCW [id number]) Current Condition History of Current Condition Onset Date November, Current Complaints Right knee pain, stiffness s/p patellar fracture, tendon rupture History of Current Condition Pt is a 64 year old male presenting to skilled therapy six weeks s/p patellar tendon repair, eight weeks total s/p initial injury. Pt reports he was in [facility] in November, visiting his daughter . Attempted to go down the steps in front of her house, slipped on ice, and landed very hard directly on his right knee on a concrete slab. Pt reports that bottom 10% of his patella was broken off, resulting in a retraction of his quad tendon and most of his patella up his thigh. Notes he had a surgical repair , the avulsion was too small to save, so it was removed from the patella tendon, and then the remaining patella was smoothed out, and the patellar tendon waswoven up through three hols drilled into the patella. Was locked into full extension for six weeks following surgery. Had a follow-up with the surgeon on 02/06/25, and his brace was unlocked from 0-50?. Notes he currently has no restrictions, the brace is locked at 50? just in case theres a fall. Currently using a LBQC for assistance ambulating. Pt reports surgeon wants his knee at 90? flexion two weeks from now, and 120? flexion in one month. Admits knee just feels really stiff, he is unable to flex far enough to feel much pain. PT-OP-C Subjective Start: 02/09/25 15:48 Freq: Status: Active Protocol: Document 02/09/25 12:20 DCW (Rec: 02/09/25 17:41 DCW [id number]) OP-PT Subjective Patient Comments Patient Comments I'm ready to get this moving. Patient Reported Progress Improving Patient Questionnaires Lower Extremity Functional Scale LEFS Score 22/80 = 27.5% LEFS Impairment 60 to 79% Impaired (Score 17- 31) PT-OP-F Manual Assessment Start: 02/09/25 15:48 Freq: Status: Active Protocol: Document 02/09/25 12:20 DCW (Rec: 02/09/25 17:41 DCW [id number]) Manual Assessments Joint Mobility Assessment Joint Mobility Assessment Joint effusion along right knee, stiffness with passive flexion, very limited mobility PT-OP-J Posture/Palpation/Skin Start: 02/09/25 15:48 Freq: Status: Active Protocol: Document 02/09/25 12:20 DCW (Rec: 02/09/25 17:41 DCW [id number]) Skin Assessment Circumference Measurement 3 Location Right knee 6 cm superior to joint line Measurement (Centimeters) 52.0 Comments Left = 47.5 cm 2 Location Right knee joint line Measurement (Centimeters) 47.6 Comments Left = 44.8 cm 1 Location Right knee 6 cm inferior to joint line Measurement (Centimeters) 44.8 Comments Left = 43.1 cm PT-OP-K Range of Motion Start: 02/09/25 15:48 Freq: Status: Active Protocol: Document 02/09/25 12:20 DCW (Rec: 02/09/25 17:41 DCW [id number]) Knee Goniometric Range of Motion Knee Right Knee ROM WFL No Patient Position Supine Flexion Active (degrees) 29 Flexion Passive (degrees) 36 Extension Active (degrees) 0 Extension Passive (degrees) 0 Left Knee ROM WFL Yes Patient Position Supine Flexion Active (degrees) 130 Extension Active (degrees) 0 Knee ROM Limitations Knee ROM Limitations Soft Tissue Tightness,Bony Restriction,Muscle Tone,Pain, Swelling PT-OP-M Strength Start: 02/09/25 15:48 Freq: Status: Active Protocol: Document 02/09/25 12:20 DCW (Rec: 02/09/25 17:41 DCW [id number]) Knee Strength Knee Manual Muscle Testing Right Flexion (S2) 2- Poor- Extension (L3) 3 Fair Left Flexion (S2) 5 Normal Extension (L3) 5 Normal PT-OP-Q Treatments Start: 02/09/25 15:48 Freq: Status: Active Protocol: Document 02/09/25 12:20 DCW (Rec: 02/09/25 16:00 DCW [id number]) Therapeutic Exercises Supine Exercises Flexion stretch Supine Exercise Name flexion stretch of knee over bolster Side right SLR Supine Exercise Name SLR Side right Heel Slides Supine Exercise Name Heel slides Side right Prone Exercises Hamstring curls Prone Exercise Name Prone hamstring curls Side right PT-OP-T Assessment and Plan Start: 02/09/25 15:48 Freq: Status: Active Protocol: Document 02/09/25 12:20 DCW (Rec: 02/09/25 17:51 [facility] [id number]) Physical Therapy Assessment Rehab Potential Rehabilitation Potential Good Evaluation Complexity Number of Personal Factors/Comorbidities 3 or More Number of Body Systems Impaired 4 or More Clinical Presentation at Evaluation Unstable Impairments Impairments Activity Tolerance,Balance, Edema,Functional Activities, Functional Mobility,Gait, Integument,Pain,ROM,Soft Tissue Mobility,Strength,Tone Goals Three Impairment Right knee weakness with flexion (2-/5) and extension ( 3/5) Shelter Goal (LTG) Pt to demonstrate right knee MMT >4-/5 in both flexion and extension in order to return to previous functional mobility. LTG Duration 03/23/25 Two Impairment Significant limitations in right knee flexion (AROM 29?) Short Term Goal (STG) Pt to demonstrate improvement in right knee flexion to >90? STG Duration 03/02/25 Shelter Goal (LTG) Pt to improve active right knee flexion to >120? in order to return to prior level of function LTG Duration 03/23/25 One Impairment Pt does not have an appropriate home exercise program Short Term Goal (STG) Pt to be independent and compliant with an appropriate HEP STG Duration 03/02/25 Assessment Summary Assessment Pt presents with signs and symptoms consistent with referring diagnosis. Pt is six weeks s/p patella fracture/ patellar tendon rupture repair . Pt has only had his brace unlocked from full extension for three days, flexion is currently very limited, pt demonstrating 29? active flexion in supine. Pt will benefit from skilled therapy focusing on stretching knee, strengthening quads and hamstrings, joint mobs, STM, edema/effusion control, pain control, and return to a normalized gait pattern. Spent time today working on HEP, as well as focus on getting knee out of extension when sitting , including trying to allow leg to hang into flexion. Physical Therapy Plan Frequency and Duration Frequency of Treatment 2x/Week Plan of Care Start Date 02/09/25 Plan of Care End Date 04/11/25 Therapeutic Interventions Therapeutic Interventions Balance Training,Coordination Training,Gait Training,Home Exercise Program,Joint Mobilizations,Manual Therapy, Neuromuscular Re-education, Patient/Caregiver Education, Self-Care/Home Management,Soft Tissue Mobilization,Taping, Therapeutic Activities, Therapeutic Exercises Modalities Cold Pack/Ice Massage,Electric Stimulation,Hot Packs, Ultrasound Next Visit Focus/Plan Next Note Type Treatment Note Next Visit Plan Knee mobility, strengthening, flexibility, gait
--- NOTE | 2025-02-09 17:51 | PT.OPPOC ---
Physical, Occupational & Speech Therapy At [facility] Current Diagnoses Pain in right knee (02/09/25) Stiffness of right knee, not elsewhere classified (02/09/25) Other abnormalities of gait and mobility (02/09/25) Displaced comminuted fracture of right patella, subsequent encounter for closed fracture with routine healing (02/09/25) Visit Care Team Role Provider Type Susu Kemp PA-C Referring Provider Non-Staff Specialty: Orthopedic Surgery Address: [address] [place] [address], [place], [address] Email: David Lawrence DO Family Provider Physician Primary Care Provider Specialty: Family Practice Address: [address] [place] [address], [phone] Email: Alan Riley DO Attending Provider Non-Staff Specialty: Orthopedics Address: [address] [place], [address] Email: Plan Of Care PT-OP-B Current Condition Start: 02/09/25 15:48 Freq: Status: Active Protocol: Document 02/09/25 12:20 DCW (Rec: 02/09/25 16:00 DCW [id number]) Current Condition History of Current Condition Onset Date November, Current Complaints Right knee pain, stiffness s/p patellar fracture, tendon rupture History of Current Condition Pt is a 64 year old male presenting to skilled therapy six weeks s/p patellar tendon repair, eight weeks total s/p initial injury. Pt reports he was in [facility] in November, visiting his daughter . Attempted to go down the steps in front of her house, slipped on ice, and landed very hard directly on his right knee on a concrete slab. Pt reports that bottom 10% of his patella was broken off, resulting in a retraction of his quad tendon and most of his patella up his thigh. Notes he had a surgical repair , the avulsion was too small to save, so it was removed from the patella tendon, and then the remaining patella was smoothed out, and the patellar tendon waswoven up through three hols drilled into the patella. Was locked into full extension for six weeks following surgery. Had a follow-up with the surgeon on 02/06/25, and his brace was unlocked from 0-50?. Notes he currently has no restrictions, the brace is locked at 50? just in case theres a fall. Currently using a LBQC for assistance ambulating. Pt reports surgeon wants his knee at 90? flexion two weeks from now, and 120? flexion in one month. Admits knee just feels really stiff, he is unable to flex far enough to feel much pain. PT-OP-T Assessment and Plan Start: 02/09/25 15:48 Freq: Status: Active Protocol: Document 02/09/25 12:20 DCW (Rec: 02/09/25 17:51 DCW [id number]) Physical Therapy Assessment Rehab Potential Rehabilitation Potential Good Evaluation Complexity Number of Personal Factors/Comorbidities 3 or More Number of Body Systems Impaired 4 or More Clinical Presentation at Evaluation Unstable Impairments Impairments Activity Tolerance,Balance, Edema,Functional Activities, Functional Mobility,Gait, Integument,Pain,ROM,Soft Tissue Mobility,Strength,Tone Goals Three Impairment Right knee weakness with flexion (2-/5) and extension ( 3/5) Intermediate Goal (LTG) Pt to demonstrate right knee MMT >4-/5 in both flexion and extension in order to return to previous functional mobility. LTG Duration 03/23/25 Two Impairment Significant limitations in right knee flexion (AROM 29?) Short Term Goal (STG) Pt to demonstrate improvement in right knee flexion to >90? STG Duration 03/02/25 Intermediate Goal (LTG) Pt to improve active right knee flexion to >120? in order to return to prior level of function LTG Duration 03/23/25 One Impairment Pt does not have an appropriate home exercise program Short Term Goal (STG) Pt to be independent and compliant with an appropriate HEP STG Duration 03/02/25 Assessment Summary Assessment Pt presents with signs and symptoms consistent with referring diagnosis. Pt is six weeks s/p patella fracture/ patellar tendon rupture repair . Pt has only had his brace unlocked from full extension for three days, flexion is currently very limited, pt demonstrating 29? active flexion in supine. Pt will benefit from skilled therapy focusing on stretching knee, strengthening quads and hamstrings, joint mobs, STM, edema/effusion control, pain control, and return to a normalized gait pattern. Spent time today working on HEP, as well as focus on getting knee out of extension when sitting , including trying to allow leg to hang into flexion. Physical Therapy Plan Frequency and Duration Frequency of Treatment 2x/Week Plan of Care Start Date 02/09/25 Plan of Care End Date 04/11/25 Therapeutic Interventions Therapeutic Interventions Balance Training,Coordination Training,Gait Training,Home Exercise Program,Joint Mobilizations,Manual Therapy, Neuromuscular Re-education, Patient/Caregiver Education, Self-Care/Home Management,Soft Tissue Mobilization,Taping, Therapeutic Activities, Therapeutic Exercises Modalities Cold Pack/Ice Massage,Electric Stimulation,Hot Packs, Ultrasound Next Visit Focus/Plan Next Note Type Treatment Note Next Visit Plan Knee mobility, strengthening, flexibility, gait Plan of Care Dates Plan of Care Start Date 02/09/25 Plan of Care End Date 04/11/25 Electronically Signed by: Abraham Choudhury, PT 02/09/25 [id number] If you are in agreement with this Plan of Care, please return a signed and dated copy. I have reviewed this Plan of Care and certify that the skilled therapy services above are required to meet the patient?s needs. Physician Signature Date Printed Name and Credentials Clinical Instructor Signature Printed Name and Credentials
--- NOTE | 2025-02-14 11:37 | PT.OTN ---
Current Diagnoses Pain in right knee (02/14/25) Stiffness of right knee, not elsewhere classified (02/14/25) Other abnormalities of gait and mobility (02/14/25) Displaced comminuted fracture of right patella, subsequent encounter for closed fracture with routine healing (02/14/25) Physical Therapy Treatment Note PT-OP-A Visit Information Start: 02/09/25 15:48 Freq: Status: Active Protocol: Document 02/14/25 10:45 DCW (Rec: 02/14/25 11:36 DCW [id number]) Out-Patient Physical Therapy Visit Information Visit Information Visit Type Treatment Note Visit Start Time 10:45 Visit Stop Time 11:30 Visit Number 2 Number of AIRLINE MANAGER Visits 0 Evaluation Information Evaluation Date 02/09/25 PT-OP-B Current Condition Start: 02/09/25 15:48 Freq: Status: Active Protocol: Document 02/09/25 12:20 DCW (Rec: 02/09/25 16:00 DCW [id number]) Current Condition History of Current Condition Onset Date November, Current Complaints Right knee pain, stiffness s/p patellar fracture, tendon rupture History of Current Condition Pt is a 64 year old male presenting to skilled therapy six weeks s/p patellar tendon repair, eight weeks total s/p initial injury. Pt reports he was in [facility] in November, visiting his daughter . Attempted to go down the steps in front of her house, slipped on ice, and landed very hard directly on his right knee on a concrete slab. Pt reports that bottom 10% of his patella was broken off, resulting in a retraction of his quad tendon and most of his patella up his thigh. Notes he had a surgical repair , the avulsion was too small to save, so it was removed from the patella tendon, and then the remaining patella was smoothed out, and the patellar tendon waswoven up through three hols drilled into the patella. Was locked into full extension for six weeks following surgery. Had a follow-up with the surgeon on 02/06/25, and his brace was unlocked from 0-50?. Notes he currently has no restrictions, the brace is locked at 50? just in case theres a fall. Currently using a LBQC for assistance ambulating. Pt reports surgeon wants his knee at 90? flexion two weeks from now, and 120? flexion in one month. Admits knee just feels really stiff, he is unable to flex far enough to feel much pain. PT-OP-C Subjective Start: 02/09/25 15:48 Freq: Status: Active Protocol: Document 02/14/25 10:45 DCW (Rec: 02/14/25 11:36 DCW [id number]) OP-PT Subjective Patient Comments Patient Comments I feel like my strength is getting better, I'm lifting my leg easier, but my range of motion doesn't seem to be getting better. PT-OP-F Manual Assessment Start: 02/09/25 15:48 Freq: Status: Active Protocol: Document 02/09/25 12:20 DCW (Rec: 02/09/25 17:41 DCW [id number]) Manual Assessments Joint Mobility Assessment Joint Mobility Assessment Joint effusion along right knee, stiffness with passive flexion, very limited mobility PT-OP-J Posture/Palpation/Skin Start: 02/09/25 15:48 Freq: Status: Active Protocol: Document 02/09/25 12:20 DCW (Rec: 02/09/25 17:41 DCW [id number]) Skin Assessment Circumference Measurement 3 Location Right knee 6 cm superior to joint line Measurement (Centimeters) 52.0 Comments Left = 47.5 cm 2 Location Right knee joint line Measurement (Centimeters) 47.6 Comments Left = 44.8 cm 1 Location Right knee 6 cm inferior to joint line Measurement (Centimeters) 44.8 Comments Left = 43.1 cm PT-OP-K Range of Motion Start: 02/09/25 15:48 Freq: Status: Active Protocol: Document 02/09/25 12:20 DCW (Rec: 02/09/25 17:41 DCW [id number]) Knee Goniometric Range of Motion Knee Right Knee ROM WFL No Patient Position Supine Flexion Active (degrees) 29 Flexion Passive (degrees) 36 Extension Active (degrees) 0 Extension Passive (degrees) 0 Left Knee ROM WFL Yes Patient Position Supine Flexion Active (degrees) 130 Extension Active (degrees) 0 Knee ROM Limitations Knee ROM Limitations Soft Tissue Tightness,Bony Restriction,Muscle Tone,Pain, Swelling PT-OP-M Strength Start: 02/09/25 15:48 Freq: Status: Active Protocol: Document 02/09/25 12:20 DCW (Rec: 02/09/25 17:41 DCW [id number]) Knee Strength Knee Manual Muscle Testing Right Flexion (S2) 2- Poor- Extension (L3) 3 Fair Left Flexion (S2) 5 Normal Extension (L3) 5 Normal PT-OP-Q Treatments Start: 02/09/25 15:48 Freq: Status: Active Protocol: Document 02/14/25 10:45 DCW (Rec: 02/14/25 11:36 DCW [id number]) Cardio Equipment Recumbent Bicycle Duration (Minutes) 6 Seat Position 10 Other Partial rotation Focus on knee flexion ROM - 36? max Gym Equipment Shuttle Recovery Bilateral Squats Details Switch between bilateral/ unilateral Resistance 50# Reps/Time Focus on knee flexion ROM - 45 ? max Manual Therapy Treatment Joint Mobilizations Patella Joint R Patella Direction Inf/Sup Grade III Knee Joint R Knee Direction P<->A Grade III PT-OP-T Assessment and Plan Start: 02/09/25 15:48 Freq: Status: Active Protocol: Document 02/14/25 10:45 DCW (Rec: 02/14/25 11:36 DCW [id number]) Physical Therapy Assessment Impairments Impairments Activity Tolerance,Balance, Edema,Functional Activities, Functional Mobility,Gait, Integument,Pain,ROM,Soft Tissue Mobility,Strength,Tone Goals Three Impairment Right knee weakness with flexion (2-/5) and extension ( 3/5) Penitentiary Goal (LTG) Pt to demonstrate right knee MMT >4-/5 in both flexion and extension in order to return to previous functional mobility. LTG Duration 03/23/25 Two Impairment Significant limitations in right knee flexion (AROM 29?) Short Term Goal (STG) Pt to demonstrate improvement in right knee flexion to >90? STG Duration 03/02/25 Social Work Associate Goal (LTG) Pt to improve active right knee flexion to >120? in order to return to prior level of function LTG Duration 03/23/25 One Impairment Pt does not have an appropriate home exercise program Short Term Goal (STG) Pt to be independent and compliant with an appropriate HEP STG Duration 03/02/25 Assessment Summary Assessment Pt tolerated well, continues to complain of stiffness with flexion, but made good improvement throughout session . First measurement on recumbent bike was 34?, by end of session measured at 52? allowing leg to dangle off side of table in sitting. Continue to focus mainly on right knee flexion ROM. Physical Therapy Plan Frequency and Duration Frequency of Treatment 2x/Week Plan of Care Start Date 02/09/25 Plan of Care End Date 04/11/25 Therapeutic Interventions Therapeutic Interventions Balance Training,Coordination Training,Gait Training,Home Exercise Program,Joint Mobilizations,Manual Therapy, Neuromuscular Re-education, Patient/Caregiver Education, Self-Care/Home Management,Soft Tissue Mobilization,Taping, Therapeutic Activities, Therapeutic Exercises Modalities Cold Pack/Ice Massage,Electric Stimulation,Hot Packs, Ultrasound Next Visit Focus/Plan Next Note Type Treatment Note Next Visit Plan Knee mobility, strengthening, flexibility, gait
--- NOTE | 2025-02-17 11:34 | PT.OTN ---
Current Diagnoses Pain in right knee (02/17/25) Stiffness of right knee, not elsewhere classified (02/17/25) Other abnormalities of gait and mobility (02/17/25) Displaced comminuted fracture of right patella, subsequent encounter for closed fracture with routine healing (02/17/25) Physical Therapy Treatment Note PT-OP-A Visit Information Start: 02/09/25 15:48 Freq: Status: Active Protocol: Document 02/17/25 10:47 SP (Rec: 02/17/25 11:34 SP [id number]) Out-Patient Physical Therapy Visit Information Visit Information Visit Type Treatment Note Visit Start Time 10:47 Visit Stop Time 11:34 Visit Number 3 Number of CASE MANAGER SPECIALIST Visits 1 Evaluation Information Evaluation Date 02/09/25 PT-OP-B Current Condition Start: 02/09/25 15:48 Freq: Status: Active Protocol: Document 02/09/25 12:20 DCW (Rec: 02/09/25 16:00 DCW [id number]) Current Condition History of Current Condition Onset Date November, Current Complaints Right knee pain, stiffness s/p patellar fracture, tendon rupture History of Current Condition Pt is a 64 year old male presenting to skilled therapy six weeks s/p patellar tendon repair, eight weeks total s/p initial injury. Pt reports he was in [facility] in November, visiting his daughter . Attempted to go down the steps in front of her house, slipped on ice, and landed very hard directly on his right knee on a concrete slab. Pt reports that bottom 10% of his patella was broken off, resulting in a retraction of his quad tendon and most of his patella up his thigh. Notes he had a surgical repair , the avulsion was too small to save, so it was removed from the patella tendon, and then the remaining patella was smoothed out, and the patellar tendon waswoven up through three hols drilled into the patella. Was locked into full extension for six weeks following surgery. Had a follow-up with the surgeon on 02/06/25, and his brace was unlocked from 0-50?. Notes he currently has no restrictions, the brace is locked at 50? just in case theres a fall. Currently using a LBQC for assistance ambulating. Pt reports surgeon wants his knee at 90? flexion two weeks from now, and 120? flexion in one month. Admits knee just feels really stiff, he is unable to flex far enough to feel much pain. PT-OP-C Subjective Start: 02/09/25 15:48 Freq: Status: Active Protocol: Document 02/17/25 10:47 SP (Rec: 02/17/25 11:34 SP [id number]) OP-PT Subjective Patient Comments Patient Comments Pt reports was sore in R knee after last tx and iced down but pleased with range after maual last tx, likes can bend R knee more sittin. PT-OP-F Manual Assessment Start: 02/09/25 15:48 Freq: Status: Active Protocol: Document 02/09/25 12:20 DCW (Rec: 02/09/25 17:41 DCW [id number]) Manual Assessments Joint Mobility Assessment Joint Mobility Assessment Joint effusion along right knee, stiffness with passive flexion, very limited mobility PT-OP-J Posture/Palpation/Skin Start: 02/09/25 15:48 Freq: Status: Active Protocol: Document 02/09/25 12:20 DCW (Rec: 02/09/25 17:41 DCW [id number]) Skin Assessment Circumference Measurement 3 Location Right knee 6 cm superior to joint line Measurement (Centimeters) 52.0 Comments Left = 47.5 cm 2 Location Right knee joint line Measurement (Centimeters) 47.6 Comments Left = 44.8 cm 1 Location Right knee 6 cm inferior to joint line Measurement (Centimeters) 44.8 Comments Left = 43.1 cm PT-OP-K Range of Motion Start: 02/09/25 15:48 Freq: Status: Active Protocol: Document 02/09/25 12:20 DCW (Rec: 02/09/25 17:41 DCW [id number]) Knee Goniometric Range of Motion Knee Right Knee ROM WFL No Patient Position Supine Flexion Active (degrees) 29 Flexion Passive (degrees) 36 Extension Active (degrees) 0 Extension Passive (degrees) 0 Left Knee ROM WFL Yes Patient Position Supine Flexion Active (degrees) 130 Extension Active (degrees) 0 Knee ROM Limitations Knee ROM Limitations Soft Tissue Tightness,Bony Restriction,Muscle Tone,Pain, Swelling PT-OP-M Strength Start: 02/09/25 15:48 Freq: Status: Active Protocol: Document 02/09/25 12:20 DCW (Rec: 02/09/25 17:41 DCW [id number]) Knee Strength Knee Manual Muscle Testing Right Flexion (S2) 2- Poor- Extension (L3) 3 Fair Left Flexion (S2) 5 Normal Extension (L3) 5 Normal PT-OP-Q Treatments Start: 02/09/25 15:48 Freq: Status: Active Protocol: Document 02/17/25 10:47 SP (Rec: 02/17/25 11:34 SP [id number]) Gym Equipment Shuttle Recovery Bilateral Squats Details Switch between bilateral/ unilateral Resistance 50# 2 navy bands Reps/Time Focus on R knee flexion AAROM: 56> 64 deg max Therapeutic Exercises Supine Exercises SLR Supine Exercise Name SLR Side right Equipment Used opp LE knee bent Reps/Minutes x10 Sitting Exercises knee flexion Sitting Exercise Name self AAROM R knee review Side right Resistance AROM flexion then scoot fwd into flexion Reps/Minutes hold 10 sec x3 reps Gait Training Gait Activity Front mirror Description gait phase R knee/hip flexion during swing through, heel strike Device Used none Distance/Duration 20 ft x3 laps front mirror Treatment Focus normalize gait phase Comments Elevated LBQC 1 knotch, tends lower advancement heavy and leans over QC, hip hike. Improved mechanics RLE with use mirror. Discussed can utilize SPC now longer distances. Wt shift pre gait Description wt shift rocking, R knee flexion swing phase, heel strike Device Used QC on L Level of Assistance SBA Distance/Duration front mirror many reps Treatment Focus normalize R knee flexion, R ankle DF and gait mechanics Comments Cues in increased R knee and hip flexion knee lift then eccentric heel strike advancement Manual Therapy Treatment Consent Patient gave verbal consent for manual Yes treatment Soft Tissue Mobilization R leg Body Location R quad, ITB, HS, Gastroc Mobilization Type Instrument Assisted,Myofascial Release Intensity/Depth Moderate Body Position Supine Comments Gentle STMs manual: R knee slight flexion for HS, gastroc , extension quad and ITB. Adjusted pressure to tolerance . Cupping distal quad and ITB. Joint Mobilizations Patella Joint R Patella Direction Inf/Sup Grade III Comments ed perform self if can. circumference: mid 47cm below 34.8cm above 50.1cm Knee Joint R Knee Direction P<->A Grade III Comments inslight flexed positioning PT-OP-T Assessment and Plan Start: 02/09/25 15:48 Freq: Status: Active Protocol: Document 02/17/25 10:47 SP (Rec: 02/17/25 11:34 SP [id number]) Physical Therapy Assessment Goals Three Impairment Right knee weakness with flexion (2-/5) and extension ( 3/5) Shelter Goal (LTG) Pt to demonstrate right knee MMT >4-/5 in both flexion and extension in order to return to previous functional mobility. LTG Duration 03/23/25 Two Impairment Significant limitations in right knee flexion (AROM 29?) Short Term Goal (STG) Pt to demonstrate improvement in right knee flexion to >90? STG Duration 03/02/25 Shelter Goal (LTG) Pt to improve active right knee flexion to >120? in order to return to prior level of function LTG Duration 03/23/25 One Impairment Pt does not have an appropriate home exercise program Short Term Goal (STG) Pt to be independent and compliant with an appropriate HEP STG Duration 03/02/25 Progress Towards Goals Progress Comments Progressed AAROM R knee: 10-19 deg flexion. Assessment Summary Assessment Pt tolerated manual today with improved R knee flexion AAROM 59 deg, shuttle recovery up to 64 deg. Time spent mechanics R knee wt shift rocking and advancement step fwd/bwd then short distance gait with QC then no UE, cues for knee lift then heel toe better and reports feels better. Encouraged slow pacing gait and focus on quality movement on R knee. Physical Therapy Plan Frequency and Duration Frequency of Treatment 2x/Week Plan of Care Start Date 02/09/25 Plan of Care End Date 04/11/25 Therapeutic Interventions Therapeutic Interventions Balance Training,Coordination Training,Gait Training,Home Exercise Program,Joint Mobilizations,Manual Therapy, Neuromuscular Re-education, Patient/Caregiver Education, Self-Care/Home Management,Soft Tissue Mobilization,Taping, Therapeutic Activities, Therapeutic Exercises Modalities Cold Pack/Ice Massage,Electric Stimulation,Hot Packs, Ultrasound Next Visit Focus/Plan Next Note Type Treatment Note Next Visit Plan Check R knee mechanics gait, use SPC. Next add stretching. POC: R Knee mobility, strengthening, flexibility, gait
--- NOTE | 2025-02-17 11:34 | PT.OTN ---
Current Diagnoses Pain in right knee (02/17/25) Stiffness of right knee, not elsewhere classified (02/17/25) Other abnormalities of gait and mobility (02/17/25) Displaced comminuted fracture of right patella, subsequent encounter for closed fracture with routine healing (02/17/25) Physical Therapy Treatment Note PT-OP-A Visit Information Start: 02/09/25 15:48 Freq: Status: Active Protocol: Document 02/17/25 10:47 SP (Rec: 02/17/25 11:34 SP [id number]) Out-Patient Physical Therapy Visit Information Visit Information Visit Type Treatment Note Visit Start Time 10:47 Visit Stop Time 11:34 Visit Number 3 Number of BOILING OFF WINDER Visits 1 Evaluation Information Evaluation Date 02/09/25 PT-OP-B Current Condition Start: 02/09/25 15:48 Freq: Status: Active Protocol: Document 02/09/25 12:20 DCW (Rec: 02/09/25 16:00 DCW [id number]) Current Condition History of Current Condition Onset Date November, Current Complaints Right knee pain, stiffness s/p patellar fracture, tendon rupture History of Current Condition Pt is a 64 year old male presenting to skilled therapy six weeks s/p patellar tendon repair, eight weeks total s/p initial injury. Pt reports he was in [facility] in November, visiting his daughter . Attempted to go down the steps in front of her house, slipped on ice, and landed very hard directly on his right knee on a concrete slab. Pt reports that bottom 10% of his patella was broken off, resulting in a retraction of his quad tendon and most of his patella up his thigh. Notes he had a surgical repair , the avulsion was too small to save, so it was removed from the patella tendon, and then the remaining patella was smoothed out, and the patellar tendon waswoven up through three hols drilled into the patella. Was locked into full extension for six weeks following surgery. Had a follow-up with the surgeon on 02/06/25, and his brace was unlocked from 0-50?. Notes he currently has no restrictions, the brace is locked at 50? just in case theres a fall. Currently using a LBQC for assistance ambulating. Pt reports surgeon wants his knee at 90? flexion two weeks from now, and 120? flexion in one month. Admits knee just feels really stiff, he is unable to flex far enough to feel much pain. PT-OP-C Subjective Start: 02/09/25 15:48 Freq: Status: Active Protocol: Document 02/17/25 10:47 SP (Rec: 02/17/25 11:34 SP [id number]) OP-PT Subjective Patient Comments Patient Comments Pt reports was sore in R knee after last tx and iced down but pleased with range after maual last tx, likes can bend R knee more sittin. PT-OP-F Manual Assessment Start: 02/09/25 15:48 Freq: Status: Active Protocol: Document 02/09/25 12:20 DCW (Rec: 02/09/25 17:41 DCW [id number]) Manual Assessments Joint Mobility Assessment Joint Mobility Assessment Joint effusion along right knee, stiffness with passive flexion, very limited mobility PT-OP-J Posture/Palpation/Skin Start: 02/09/25 15:48 Freq: Status: Active Protocol: Document 02/17/25 10:47 SP (Rec: 02/17/25 16:04 SP [id number]) Skin Assessment Circumference Measurement 3 Location Right knee 6 cm superior to joint line Measurement (Centimeters) 50.1 Comments Left = 47.5 cm 2 Location Right knee joint line Measurement (Centimeters) 47.0 Comments Left = 44.8 cm 1 Location Right knee 6 cm inferior to joint line Measurement (Centimeters) 34.8 Comments Left = 43.1 cm PT-OP-K Range of Motion Start: 02/09/25 15:48 Freq: Status: Active Protocol: Document 02/09/25 12:20 DCW (Rec: 02/09/25 17:41 DCW [id number]) Knee Goniometric Range of Motion Knee Right Knee ROM WFL No Patient Position Supine Flexion Active (degrees) 29 Flexion Passive (degrees) 36 Extension Active (degrees) 0 Extension Passive (degrees) 0 Left Knee ROM WFL Yes Patient Position Supine Flexion Active (degrees) 130 Extension Active (degrees) 0 Knee ROM Limitations Knee ROM Limitations Soft Tissue Tightness,Bony Restriction,Muscle Tone,Pain, Swelling PT-OP-M Strength Start: 02/09/25 15:48 Freq: Status: Active Protocol: Document 02/09/25 12:20 DCW (Rec: 02/09/25 17:41 DCW [id number]) Knee Strength Knee Manual Muscle Testing Right Flexion (S2) 2- Poor- Extension (L3) 3 Fair Left Flexion (S2) 5 Normal Extension (L3) 5 Normal PT-OP-Q Treatments Start: 02/09/25 15:48 Freq: Status: Active Protocol: Document 02/17/25 10:47 SP (Rec: 02/17/25 11:34 SP [id number]) Gym Equipment Shuttle Recovery Bilateral Squats Details Switch between bilateral/ unilateral Resistance 50# 2 navy bands Reps/Time Focus on R knee flexion AAROM: 56> 64 deg max Therapeutic Exercises Supine Exercises SLR Supine Exercise Name SLR Side right Equipment Used opp LE knee bent Reps/Minutes x10 Sitting Exercises knee flexion Sitting Exercise Name self AAROM R knee review Side right Resistance AROM flexion then scoot fwd into flexion Reps/Minutes hold 10 sec x3 reps Gait Training Gait Activity Front mirror Description gait phase R knee/hip flexion during swing through, heel strike Device Used none Distance/Duration 20 ft x3 laps front mirror Treatment Focus normalize gait phase Comments Elevated LBQC 1 knotch, tends lower advancement heavy and leans over QC, hip hike. Improved mechanics RLE with use mirror. Discussed can utilize SPC now longer distances. Wt shift pre gait Description wt shift rocking, R knee flexion swing phase, heel strike Device Used QC on L Level of Assistance SBA Distance/Duration front mirror many reps Treatment Focus normalize R knee flexion, R ankle DF and gait mechanics Comments Cues in increased R knee and hip flexion knee lift then eccentric heel strike advancement Manual Therapy Treatment Consent Patient gave verbal consent for manual Yes treatment Soft Tissue Mobilization R leg Body Location R quad, ITB, HS, Gastroc Mobilization Type Instrument Assisted,Myofascial Release Intensity/Depth Moderate Body Position Supine Comments Gentle STMs manual: R knee slight flexion for HS, gastroc , extension quad and ITB. Adjusted pressure to tolerance . Cupping distal quad and ITB. Joint Mobilizations Patella Joint R Patella Direction Inf/Sup Grade III Comments ed perform self if can. Knee Joint R Knee Direction P<->A Grade III Comments inslight flexed positioning PT-OP-T Assessment and Plan Start: 02/09/25 15:48 Freq: Status: Active Protocol: Document 02/17/25 10:47 SP (Rec: 02/17/25 11:34 SP [id number]) Physical Therapy Assessment Goals Three Impairment Right knee weakness with flexion (2-/5) and extension ( 3/5) Cut Off Machine Helper Goal (LTG) Pt to demonstrate right knee MMT >4-/5 in both flexion and extension in order to return to previous functional mobility. LTG Duration 03/23/25 Two Impairment Significant limitations in right knee flexion (AROM 29?) Short Term Goal (STG) Pt to demonstrate improvement in right knee flexion to >90? STG Duration 03/02/25 Halfway Goal (LTG) Pt to improve active right knee flexion to >120? in order to return to prior level of function LTG Duration 03/23/25 One Impairment Pt does not have an appropriate home exercise program Short Term Goal (STG) Pt to be independent and compliant with an appropriate HEP STG Duration 03/02/25 Progress Towards Goals Progress Comments Progressed AAROM R knee: 10-19 deg flexion. Decreased swelling approx 1 cm overall. Assessment Summary Assessment Pt tolerated manual today with improved R knee flexion AAROM 59 deg, shuttle recovery up to 64 deg. Time spent mechanics R knee wt shift rocking and advancement step fwd/bwd then short distance gait with QC then no UE, cues for knee lift then heel toe better and reports feels better. Encouraged slow pacing gait and focus on quality movement on R knee. Physical Therapy Plan Frequency and Duration Frequency of Treatment 2x/Week Plan of Care Start Date 02/09/25 Plan of Care End Date 04/11/25 Therapeutic Interventions Therapeutic Interventions Balance Training,Coordination Training,Gait Training,Home Exercise Program,Joint Mobilizations,Manual Therapy, Neuromuscular Re-education, Patient/Caregiver Education, Self-Care/Home Management,Soft Tissue Mobilization,Taping, Therapeutic Activities, Therapeutic Exercises Modalities Cold Pack/Ice Massage,Electric Stimulation,Hot Packs, Ultrasound Next Visit Focus/Plan Next Note Type Treatment Note Next Visit Plan Check R knee mechanics gait, use SPC. Next add stretching. POC: R Knee mobility, strengthening, flexibility, gait
--- NOTE | 2025-02-21 11:31 | PT.OTN ---
Current Diagnoses Pain in right knee (02/21/25) Stiffness of right knee, not elsewhere classified (02/21/25) Other abnormalities of gait and mobility (02/21/25) Displaced comminuted fracture of right patella, subsequent encounter for closed fracture with routine healing (02/21/25) Physical Therapy Treatment Note PT-OP-A Visit Information Start: 02/09/25 15:48 Freq: Status: Active Protocol: Document 02/21/25 10:45 DCW (Rec: 02/21/25 11:31 DCW [id number]) Out-Patient Physical Therapy Visit Information Visit Information Visit Type Treatment Note Visit Start Time 10:45 Visit Stop Time 11:30 Visit Number 4 Number of SOLE SPLITTER Visits 0 Evaluation Information Evaluation Date 02/09/25 PT-OP-B Current Condition Start: 02/09/25 15:48 Freq: Status: Active Protocol: Document 02/09/25 12:20 DCW (Rec: 02/09/25 16:00 DCW [id number]) Current Condition History of Current Condition Onset Date November, Current Complaints Right knee pain, stiffness s/p patellar fracture, tendon rupture History of Current Condition Pt is a 64 year old male presenting to skilled therapy six weeks s/p patellar tendon repair, eight weeks total s/p initial injury. Pt reports he was in [facility] in November, visiting his daughter . Attempted to go down the steps in front of her house, slipped on ice, and landed very hard directly on his right knee on a concrete slab. Pt reports that bottom 10% of his patella was broken off, resulting in a retraction of his quad tendon and most of his patella up his thigh. Notes he had a surgical repair , the avulsion was too small to save, so it was removed from the patella tendon, and then the remaining patella was smoothed out, and the patellar tendon waswoven up through three hols drilled into the patella. Was locked into full extension for six weeks following surgery. Had a follow-up with the surgeon on 02/06/25, and his brace was unlocked from 0-50?. Notes he currently has no restrictions, the brace is locked at 50? just in case theres a fall. Currently using a LBQC for assistance ambulating. Pt reports surgeon wants his knee at 90? flexion two weeks from now, and 120? flexion in one month. Admits knee just feels really stiff, he is unable to flex far enough to feel much pain. PT-OP-C Subjective Start: 02/09/25 15:48 Freq: Status: Active Protocol: Document 02/21/25 10:45 DCW (Rec: 02/21/25 11:31 DCW [id number]) OP-PT Subjective Patient Comments Patient Comments I know the surgeon wants it moving as soon as possible, but I'm less concerned, if it gets to 120? in 4 weeks or 8, I don't care, as long as it gets there. PT-OP-F Manual Assessment Start: 02/09/25 15:48 Freq: Status: Active Protocol: Document 02/09/25 12:20 DCW (Rec: 02/09/25 17:41 DCW [id number]) Manual Assessments Joint Mobility Assessment Joint Mobility Assessment Joint effusion along right knee, stiffness with passive flexion, very limited mobility PT-OP-J Posture/Palpation/Skin Start: 02/09/25 15:48 Freq: Status: Active Protocol: Document 02/17/25 10:47 SP (Rec: 02/17/25 16:04 SP [id number]) Skin Assessment Circumference Measurement 3 Location Right knee 6 cm superior to joint line Measurement (Centimeters) 50.1 Comments Left = 47.5 cm 2 Location Right knee joint line Measurement (Centimeters) 47.0 Comments Left = 44.8 cm 1 Location Right knee 6 cm inferior to joint line Measurement (Centimeters) 34.8 Comments Left = 43.1 cm PT-OP-K Range of Motion Start: 02/09/25 15:48 Freq: Status: Active Protocol: Document 02/09/25 12:20 DCW (Rec: 02/09/25 17:41 DCW [id number]) Knee Goniometric Range of Motion Knee Right Knee ROM WFL No Patient Position Supine Flexion Active (degrees) 29 Flexion Passive (degrees) 36 Extension Active (degrees) 0 Extension Passive (degrees) 0 Left Knee ROM WFL Yes Patient Position Supine Flexion Active (degrees) 130 Extension Active (degrees) 0 Knee ROM Limitations Knee ROM Limitations Soft Tissue Tightness,Bony Restriction,Muscle Tone,Pain, Swelling PT-OP-M Strength Start: 02/09/25 15:48 Freq: Status: Active Protocol: Document 02/09/25 12:20 DCW (Rec: 02/09/25 17:41 DCW [id number]) Knee Strength Knee Manual Muscle Testing Right Flexion (S2) 2- Poor- Extension (L3) 3 Fair Left Flexion (S2) 5 Normal Extension (L3) 5 Normal PT-OP-Q Treatments Start: 02/09/25 15:48 Freq: Status: Active Protocol: Document 02/21/25 10:45 DCW (Rec: 02/21/25 11:31 DCW [id number]) Cardio Equipment Recumbent Bicycle Duration (Minutes) 6 Seat Position 10 Other Partial rotation Focus on knee flexion ROM - 36? max Therapeutic Exercises Supine Exercises SLR Supine Exercise Name SLR Side right Equipment Used opp LE knee bent Reps/Minutes x10 Sitting Exercises knee flexion Sitting Exercise Name Knee flexion stretch - hang off table in seated Comments 71? while hanging Other Exercises Step stretch Other Exercise Name Step stretch Side right Manual Therapy Treatment Consent Patient gave verbal consent for manual Yes treatment Joint Mobilizations Patella Joint R Patella Direction Inf/Sup Grade III Knee Joint R Knee Direction P<->A Grade III PT-OP-T Assessment and Plan Start: 02/09/25 15:48 Freq: Status: Active Protocol: Document 02/21/25 10:45 DCW (Rec: 02/21/25 11:31 DCW [id number]) Physical Therapy Assessment Impairments Impairments Activity Tolerance,Balance, Edema,Functional Activities, Functional Mobility,Gait, Integument,Pain,ROM,Soft Tissue Mobility,Strength,Tone Goals Three Impairment Right knee weakness with flexion (2-/5) and extension ( 3/5) Care Home Goal (LTG) Pt to demonstrate right knee MMT >4-/5 in both flexion and extension in order to return to previous functional mobility. LTG Duration 03/23/25 Two Impairment Significant limitations in right knee flexion (AROM 29?) Short Term Goal (STG) Pt to demonstrate improvement in right knee flexion to >90? STG Duration 03/02/25 [place] Goal (LTG) Pt to improve active right knee flexion to >120? in order to return to prior level of function LTG Duration 03/23/25 One Impairment Pt does not have an appropriate home exercise program Short Term Goal (STG) Pt to be independent and compliant with an appropriate HEP STG Duration 03/02/25 Assessment Summary Assessment Max flexion of 71? today by end of session, tolerating well. Continue to focus on improving flexion ROM, joint mobs, pain/edema management, and LE strengthening. Physical Therapy Plan Frequency and Duration Frequency of Treatment 2x/Week Plan of Care Start Date 02/09/25 Plan of Care End Date 04/11/25 Therapeutic Interventions Therapeutic Interventions Balance Training,Coordination Training,Gait Training,Home Exercise Program,Joint Mobilizations,Manual Therapy, Neuromuscular Re-education, Patient/Caregiver Education, Self-Care/Home Management,Soft Tissue Mobilization,Taping, Therapeutic Activities, Therapeutic Exercises Modalities Cold Pack/Ice Massage,Electric Stimulation,Hot Packs, Ultrasound Next Visit Focus/Plan Next Note Type Treatment Note Next Visit Plan Check R knee mechanics gait, use SPC. Next add stretching. POC: R Knee mobility, strengthening, flexibility, gait
--- NOTE | 2025-02-24 11:36 | PT.OTN ---
Current Diagnoses Pain in right knee (02/24/25) Stiffness of right knee, not elsewhere classified (02/24/25) Other abnormalities of gait and mobility (02/24/25) Displaced comminuted fracture of right patella, subsequent encounter for closed fracture with routine healing (02/24/25) Physical Therapy Treatment Note PT-OP-A Visit Information Start: 02/09/25 15:48 Freq: Status: Active Protocol: Document 02/24/25 10:46 DCW (Rec: 02/24/25 11:36 DCW [id number]) Out-Patient Physical Therapy Visit Information Visit Information Visit Type Treatment Note Visit Start Time 10:46 Visit Stop Time 11:30 Visit Number 5 Number of REAL ESTATE LEGAL SECRETARY Visits 0 Evaluation Information Evaluation Date 02/09/25 PT-OP-B Current Condition Start: 02/09/25 15:48 Freq: Status: Active Protocol: Document 02/09/25 12:20 DCW (Rec: 02/09/25 16:00 DCW [id number]) Current Condition History of Current Condition Onset Date November, Current Complaints Right knee pain, stiffness s/p patellar fracture, tendon rupture History of Current Condition Pt is a 64 year old male presenting to skilled therapy six weeks s/p patellar tendon repair, eight weeks total s/p initial injury. Pt reports he was in [facility] in November, visiting his daughter . Attempted to go down the steps in front of her house, slipped on ice, and landed very hard directly on his right knee on a concrete slab. Pt reports that bottom 10% of his patella was broken off, resulting in a retraction of his quad tendon and most of his patella up his thigh. Notes he had a surgical repair , the avulsion was too small to save, so it was removed from the patella tendon, and then the remaining patella was smoothed out, and the patellar tendon waswoven up through three hols drilled into the patella. Was locked into full extension for six weeks following surgery. Had a follow-up with the surgeon on 02/06/25, and his brace was unlocked from 0-50?. Notes he currently has no restrictions, the brace is locked at 50? just in case theres a fall. Currently using a LBQC for assistance ambulating. Pt reports surgeon wants his knee at 90? flexion two weeks from now, and 120? flexion in one month. Admits knee just feels really stiff, he is unable to flex far enough to feel much pain. PT-OP-C Subjective Start: 02/09/25 15:48 Freq: Status: Active Protocol: Document 02/24/25 10:46 DCW (Rec: 02/24/25 11:36 DCW [id number]) OP-PT Subjective Patient Comments Patient Comments Pt found a table that he can dangle his leg from, so he has been doing that the past two days. PT-OP-F Manual Assessment Start: 02/09/25 15:48 Freq: Status: Active Protocol: Document 02/09/25 12:20 DCW (Rec: 02/09/25 17:41 DCW [id number]) Manual Assessments Joint Mobility Assessment Joint Mobility Assessment Joint effusion along right knee, stiffness with passive flexion, very limited mobility PT-OP-J Posture/Palpation/Skin Start: 02/09/25 15:48 Freq: Status: Active Protocol: Document 02/17/25 10:47 SP (Rec: 02/17/25 16:04 SP [id number]) Skin Assessment Circumference Measurement 3 Location Right knee 6 cm superior to joint line Measurement (Centimeters) 50.1 Comments Left = 47.5 cm 2 Location Right knee joint line Measurement (Centimeters) 47.0 Comments Left = 44.8 cm 1 Location Right knee 6 cm inferior to joint line Measurement (Centimeters) 34.8 Comments Left = 43.1 cm PT-OP-K Range of Motion Start: 02/09/25 15:48 Freq: Status: Active Protocol: Document 02/09/25 12:20 DCW (Rec: 02/09/25 17:41 DCW [id number]) Knee Goniometric Range of Motion Knee Right Knee ROM WFL No Patient Position Supine Flexion Active (degrees) 29 Flexion Passive (degrees) 36 Extension Active (degrees) 0 Extension Passive (degrees) 0 Left Knee ROM WFL Yes Patient Position Supine Flexion Active (degrees) 130 Extension Active (degrees) 0 Knee ROM Limitations Knee ROM Limitations Soft Tissue Tightness,Bony Restriction,Muscle Tone,Pain, Swelling PT-OP-M Strength Start: 02/09/25 15:48 Freq: Status: Active Protocol: Document 02/09/25 12:20 DCW (Rec: 02/09/25 17:41 DCW [id number]) Knee Strength Knee Manual Muscle Testing Right Flexion (S2) 2- Poor- Extension (L3) 3 Fair Left Flexion (S2) 5 Normal Extension (L3) 5 Normal PT-OP-Q Treatments Start: 02/09/25 15:48 Freq: Status: Active Protocol: Document 02/24/25 10:46 DCW (Rec: 02/24/25 11:36 DCW [id number]) Cardio Equipment Recumbent Bicycle Duration (Minutes) 6 Seat Position 10 Other 65? max - partial rotation, focus on knee flexion ROM Gym Equipment Shuttle Recovery Bilateral Squats Details Switch between bilateral/ unilateral Resistance 50# 2 navy bands Reps/Time 68? - Focus on R knee flexion AAROM Therapeutic Exercises Sitting Exercises knee flexion Sitting Exercise Name Knee flexion stretch - hang off table in seated Comments 77? while hanging /c overpressure Other Exercises Step stretch Other Exercise Name Step stretch Side right Comments 72? Manual Therapy Treatment Consent Patient gave verbal consent for manual Yes treatment Soft Tissue Mobilization R leg Body Location R Quad Mobilization Type Instrument Assisted,Rolling Intensity/Depth Superficial Body Position Hooklying Comments Rolling Joint Mobilizations Patella Joint R Patella Direction Inf/Sup Grade III Knee Joint R Knee Direction P<->A Grade III PT-OP-T Assessment and Plan Start: 02/09/25 15:48 Freq: Status: Active Protocol: Document 02/24/25 10:46 DCW (Rec: 02/24/25 11:36 DCW [id number]) Physical Therapy Assessment Impairments Impairments Activity Tolerance,Balance, Edema,Functional Activities, Functional Mobility,Gait, Integument,Pain,ROM,Soft Tissue Mobility,Strength,Tone Goals Three Impairment Right knee weakness with flexion (2-/5) and extension ( 3/5) Weapons Officer [employer] Goal (LTG) Pt to demonstrate right knee MMT >4-/5 in both flexion and extension in order to return to previous functional mobility. LTG Duration 03/23/25 Two Impairment Significant limitations in right knee flexion (AROM 29?) Short Term Goal (STG) Pt to demonstrate improvement in right knee flexion to >90? STG Duration 03/02/25 Alf Goal (LTG) Pt to improve active right knee flexion to >120? in order to return to prior level of function LTG Duration 03/23/25 One Impairment Pt does not have an appropriate home exercise program Short Term Goal (STG) Pt to be independent and compliant with an appropriate HEP STG Duration 03/02/25 Assessment Summary Assessment Right knee flexion continues to slowly improve, max measured today at 77?. Focus on ROM and strengthening. Physical Therapy Plan Frequency and Duration Frequency of Treatment 2x/Week Plan of Care Start Date 02/09/25 Plan of Care End Date 04/11/25 Therapeutic Interventions Therapeutic Interventions Balance Training,Coordination Training,Gait Training,Home Exercise Program,Joint Mobilizations,Manual Therapy, Neuromuscular Re-education, Patient/Caregiver Education, Self-Care/Home Management,Soft Tissue Mobilization,Taping, Therapeutic Activities, Therapeutic Exercises Modalities Cold Pack/Ice Massage,Electric Stimulation,Hot Packs, Ultrasound Next Visit Focus/Plan Next Note Type Treatment Note Next Visit Plan Check R knee mechanics gait, use SPC. Next add stretching. POC: R Knee mobility, strengthening, flexibility, gait
--- NOTE | 2025-02-28 12:03 | PT.OTN ---
Current Diagnoses Pain in right knee (02/28/25) Stiffness of right knee, not elsewhere classified (02/28/25) Other abnormalities of gait and mobility (02/28/25) Displaced comminuted fracture of right patella, subsequent encounter for closed fracture with routine healing (02/28/25) Physical Therapy Treatment Note PT-OP-A Visit Information Start: 02/09/25 15:48 Freq: Status: Active Protocol: Document 02/28/25 10:39 NBM (Rec: 02/28/25 12:02 NBM [id number]) Out-Patient Physical Therapy Visit Information Visit Information Visit Type Treatment Note Visit Start Time 10:40 Visit Stop Time 11:40 Visit Number 6 Number of PARTS FACILITATOR Visits 1 Evaluation Information Evaluation Date 02/09/25 PT-OP-B Current Condition Start: 02/09/25 15:48 Freq: Status: Active Protocol: Document 02/09/25 12:20 DCW (Rec: 02/09/25 16:00 DCW [id number]) Current Condition History of Current Condition Onset Date November, Current Complaints Right knee pain, stiffness s/p patellar fracture, tendon rupture History of Current Condition Pt is a 64 year old male presenting to skilled therapy six weeks s/p patellar tendon repair, eight weeks total s/p initial injury. Pt reports he was in [facility] in November, visiting his daughter . Attempted to go down the steps in front of her house, slipped on ice, and landed very hard directly on his right knee on a concrete slab. Pt reports that bottom 10% of his patella was broken off, resulting in a retraction of his quad tendon and most of his patella up his thigh. Notes he had a surgical repair , the avulsion was too small to save, so it was removed from the patella tendon, and then the remaining patella was smoothed out, and the patellar tendon waswoven up through three hols drilled into the patella. Was locked into full extension for six weeks following surgery. Had a follow-up with the surgeon on 02/06/25, and his brace was unlocked from 0-50?. Notes he currently has no restrictions, the brace is locked at 50? just in case theres a fall. Currently using a LBQC for assistance ambulating. Pt reports surgeon wants his knee at 90? flexion two weeks from now, and 120? flexion in one month. Admits knee just feels really stiff, he is unable to flex far enough to feel much pain. PT-OP-C Subjective Start: 02/09/25 15:48 Freq: Status: Active Protocol: Document 02/28/25 10:39 NBM (Rec: 02/28/25 12:02 NBM [id number]) OP-PT Subjective Patient Comments Patient Comments Alvarez reports he awoke feeling knee is looser today. He is not wearing brace unless out in community, but noticed today it's actually limiting his knee flexion and wonders about adjusting the brace because it's locked at 50 deg. He stretched a couple of times this morning already. Surgical follow up is next week on Thursday. He notices he's getting stronger, straight leg raises are easier than bent leg. PT-OP-F Manual Assessment Start: 02/09/25 15:48 Freq: Status: Active Protocol: Document 02/09/25 12:20 DCW (Rec: 02/09/25 17:41 DCW [id number]) Manual Assessments Joint Mobility Assessment Joint Mobility Assessment Joint effusion along right knee, stiffness with passive flexion, very limited mobility PT-OP-J Posture/Palpation/Skin Start: 02/09/25 15:48 Freq: Status: Active Protocol: Document 02/17/25 10:47 SP (Rec: 02/17/25 16:04 SP [id number]) Skin Assessment Circumference Measurement 3 Location Right knee 6 cm superior to joint line Measurement (Centimeters) 50.1 Comments Left = 47.5 cm 2 Location Right knee joint line Measurement (Centimeters) 47.0 Comments Left = 44.8 cm 1 Location Right knee 6 cm inferior to joint line Measurement (Centimeters) 34.8 Comments Left = 43.1 cm PT-OP-K Range of Motion Start: 02/09/25 15:48 Freq: Status: Active Protocol: Document 02/09/25 12:20 DCW (Rec: 02/09/25 17:41 DCW [id number]) Knee Goniometric Range of Motion Knee Right Knee ROM WFL No Patient Position Supine Flexion Active (degrees) 29 Flexion Passive (degrees) 36 Extension Active (degrees) 0 Extension Passive (degrees) 0 Left Knee ROM WFL Yes Patient Position Supine Flexion Active (degrees) 130 Extension Active (degrees) 0 Knee ROM Limitations Knee ROM Limitations Soft Tissue Tightness,Bony Restriction,Muscle Tone,Pain, Swelling PT-OP-M Strength Start: 02/09/25 15:48 Freq: Status: Active Protocol: Document 02/09/25 12:20 DCW (Rec: 02/09/25 17:41 DCW [id number]) Knee Strength Knee Manual Muscle Testing Right Flexion (S2) 2- Poor- Extension (L3) 3 Fair Left Flexion (S2) 5 Normal Extension (L3) 5 Normal PT-OP-Q Treatments Start: 02/09/25 15:48 Freq: Status: Active Protocol: Document 02/28/25 10:39 NBM (Rec: 02/28/25 12:02 NBM [id number]) Cardio Equipment Recumbent Bicycle Duration (Minutes) 6 Seat Position 10 Other 78? max - partial rotation, focus on knee flexion ROM w/ breath Gym Equipment Shuttle Recovery Bilateral Squats Details Switch between bilateral/ unilateral Resistance 50# 2 navy bands Reps/Time 78? max - Focus on R knee flexion AAROM Therapeutic Exercises Supine Exercises Heel Slides Supine Exercise Name 1. Heel slides 2. w/ knee flexion stretch Side right Equipment Used end of session Reps/Minutes x10 Comments 85 deg start >90 max today, cues for breathwork Sitting Exercises knee flexion Sitting Exercise Name stretch: 1.hang off table in 2 . foot planted scoot fwd Side right Equipment Used seated on plinth Comments 77? while hanging /c overpressure Other Exercises Step stretch Other Exercise Name Step stretch Side right Reps/Minutes 15, 30 x 2 Comments cues for LE alignment, breathwork and hold time Manual Therapy Treatment Consent Patient gave verbal consent for manual Yes treatment Soft Tissue Mobilization R leg Body Location R Quad Mobilization Type Rolling Intensity/Depth Superficial Body Position Hooklying Comments Rolling Joint Mobilizations Patella Joint R Patella Direction Inf/Sup Grade III Knee Joint R Knee Direction P<->A Grade III Self-Care/Home Management Treatment Education Patient Education Body Mechanics,Home Exercise Program Other Education Morning when waking up: Ankle pumps, Heel slides, SLR. Seated edge of bed knee flexion stretch (scoots foot back). Dangling off table w/ 3# ankle weight since yesterday. Step stool knee flexion stretch. PT-OP-T Assessment and Plan Start: 02/09/25 15:48 Freq: Status: Active Protocol: Document 02/28/25 10:39 NBM (Rec: 02/28/25 12:02 [facility] [id number]) Physical Therapy Assessment Goals Three Impairment Right knee weakness with flexion (2-/5) and extension ( 3/5) Land[employer] Collection System Operator Goal (LTG) Pt to demonstrate right knee MMT >4-/5 in both flexion and extension in order to return to previous functional mobility. LTG Duration 03/23/25 Two Impairment Significant limitations in right knee flexion (AROM 29?) Short Term Goal (STG) Pt to demonstrate improvement in right knee flexion to >90? 02/28/25: AROM 78 deg>85 deg, with overpressure 90 deg (pain -limited). Brace adjusted from knee flexion limited to 50 deg up to 90 deg. STG Duration 03/02/25 Landfill Gas Collection System Operator Goal (LTG) Pt to improve active right knee flexion to >120? in order to return to prior level of function LTG Duration 03/23/25 One Impairment Pt does not have an appropriate home exercise program Short Term Goal (STG) Pt to be independent and compliant with an appropriate HEP 02/28/25: Per HEP Review: Morning when waking up: Ankle pumps, Heel slides, SLR. Seated edge of bed knee flexion stretch (scoots foot back). Dangling off table w/ 3# ankle weight since 02/27/25. Step stool knee flexion stretch. STG Duration 03/02/25 Assessment Summary Assessment Treatment focus on progressing R knee flexion ROM and strengthening and HEP review. Alvarez's R knee flexion AROM progresses from 78 degrees start of session to 85 degrees end of session, and 90 degrees w/ overpressure and cues for breath. He is educated in ways to progress his HEP for increasing R knee flexion ROM, as well as breathing technique for pain dampening via Parasympathetic N.S activation to address pain guarding, and pt demos good response. Brace knee flexion range is increased from 50 degrees to 90 degrees per discussion with evaluating PT as 50 degrees is now limiting pt's knee flexion - discussion w/ pt to use SPC in LUE when ambulating for normalizing gait mechanics as pt demos compensation patterns without. Physical Therapy Plan Frequency and Duration Frequency of Treatment 2x/Week Plan of Care Start Date 02/09/25 Plan of Care End Date 04/11/25 Therapeutic Interventions Therapeutic Interventions Balance Training,Coordination Training,Gait Training,Home Exercise Program,Joint Mobilizations,Manual Therapy, Neuromuscular Re-education, Patient/Caregiver Education, Self-Care/Home Management,Soft Tissue Mobilization,Taping, Therapeutic Activities, Therapeutic Exercises Modalities Cold Pack/Ice Massage,Electric Stimulation,Hot Packs, Ultrasound Next Visit Focus/Plan Next Note Type Treatment Note Next Visit Plan Next: Check R knee mechanics gait, use SPC. Add stretching (gastroc/soleus, hip flexor). POC: R Knee mobility, strengthening, flexibility, gait
--- NOTE | 2025-02-28 12:06 | PT.OTN ---
Current Diagnoses Pain in right knee (02/28/25) Stiffness of right knee, not elsewhere classified (02/28/25) Other abnormalities of gait and mobility (02/28/25) Displaced comminuted fracture of right patella, subsequent encounter for closed fracture with routine healing (02/28/25) Physical Therapy Treatment Note PT-OP-A Visit Information Start: 02/09/25 15:48 Freq: Status: Active Protocol: Document 02/28/25 10:39 NBM (Rec: 02/28/25 12:02 NBM [id number]) Out-Patient Physical Therapy Visit Information Visit Information Visit Type Treatment Note Visit Start Time 10:40 Visit Stop Time 11:40 Visit Number 6 Number of EMPLOYMENT SERVICE SPECIALIST Visits 1 Evaluation Information Evaluation Date 02/09/25 PT-OP-B Current Condition Start: 02/09/25 15:48 Freq: Status: Active Protocol: Document 02/09/25 12:20 DCW (Rec: 02/09/25 16:00 DCW [id number]) Current Condition History of Current Condition Onset Date November, Current Complaints Right knee pain, stiffness s/p patellar fracture, tendon rupture History of Current Condition Pt is a 64 year old male presenting to skilled therapy six weeks s/p patellar tendon repair, eight weeks total s/p initial injury. Pt reports he was in [facility] in November, visiting his daughter . Attempted to go down the steps in front of her house, slipped on ice, and landed very hard directly on his right knee on a concrete slab. Pt reports that bottom 10% of his patella was broken off, resulting in a retraction of his quad tendon and most of his patella up his thigh. Notes he had a surgical repair , the avulsion was too small to save, so it was removed from the patella tendon, and then the remaining patella was smoothed out, and the patellar tendon waswoven up through three hols drilled into the patella. Was locked into full extension for six weeks following surgery. Had a follow-up with the surgeon on 02/06/25, and his brace was unlocked from 0-50?. Notes he currently has no restrictions, the brace is locked at 50? just in case theres a fall. Currently using a LBQC for assistance ambulating. Pt reports surgeon wants his knee at 90? flexion two weeks from now, and 120? flexion in one month. Admits knee just feels really stiff, he is unable to flex far enough to feel much pain. PT-OP-C Subjective Start: 02/09/25 15:48 Freq: Status: Active Protocol: Document 02/28/25 10:39 NBM (Rec: 02/28/25 12:02 NBM [id number]) OP-PT Subjective Patient Comments Patient Comments Alvarez reports he awoke feeling knee is looser today. He is not wearing brace unless out in community, but noticed today it's actually limiting his knee flexion and wonders about adjusting the brace because it's locked at 50 deg. He stretched a couple of times this morning already. Surgical follow up is next week on Thursday. He notices he's getting stronger, straight leg raises are easier than bent leg. PT-OP-F Manual Assessment Start: 02/09/25 15:48 Freq: Status: Active Protocol: Document 02/09/25 12:20 DCW (Rec: 02/09/25 17:41 DCW [id number]) Manual Assessments Joint Mobility Assessment Joint Mobility Assessment Joint effusion along right knee, stiffness with passive flexion, very limited mobility PT-OP-J Posture/Palpation/Skin Start: 02/09/25 15:48 Freq: Status: Active Protocol: Document 02/17/25 10:47 SP (Rec: 02/17/25 16:04 SP [id number]) Skin Assessment Circumference Measurement 3 Location Right knee 6 cm superior to joint line Measurement (Centimeters) 50.1 Comments Left = 47.5 cm 2 Location Right knee joint line Measurement (Centimeters) 47.0 Comments Left = 44.8 cm 1 Location Right knee 6 cm inferior to joint line Measurement (Centimeters) 34.8 Comments Left = 43.1 cm PT-OP-K Range of Motion Start: 02/09/25 15:48 Freq: Status: Active Protocol: Document 02/09/25 12:20 DCW (Rec: 02/09/25 17:41 DCW [id number]) Knee Goniometric Range of Motion Knee Right Knee ROM WFL No Patient Position Supine Flexion Active (degrees) 29 Flexion Passive (degrees) 36 Extension Active (degrees) 0 Extension Passive (degrees) 0 Left Knee ROM WFL Yes Patient Position Supine Flexion Active (degrees) 130 Extension Active (degrees) 0 Knee ROM Limitations Knee ROM Limitations Soft Tissue Tightness,Bony Restriction,Muscle Tone,Pain, Swelling PT-OP-M Strength Start: 02/09/25 15:48 Freq: Status: Active Protocol: Document 02/09/25 12:20 DCW (Rec: 02/09/25 17:41 DCW [id number]) Knee Strength Knee Manual Muscle Testing Right Flexion (S2) 2- Poor- Extension (L3) 3 Fair Left Flexion (S2) 5 Normal Extension (L3) 5 Normal PT-OP-Q Treatments Start: 02/09/25 15:48 Freq: Status: Active Protocol: Document 02/28/25 10:39 NBM (Rec: 02/28/25 12:02 NBM [id number]) Cardio Equipment Recumbent Bicycle Duration (Minutes) 6 Seat Position 10 Other 78? max - partial rotation, focus on knee flexion ROM w/ breath Gym Equipment Shuttle Recovery Bilateral Squats Details Switch between bilateral/ unilateral Resistance 50# 2 navy bands Reps/Time 78? max - Focus on R knee flexion AAROM Therapeutic Exercises Supine Exercises Heel Slides Supine Exercise Name 1. Heel slides 2. w/ knee flexion stretch Side right Equipment Used end of session Reps/Minutes x10 Comments 85 deg start >90 max today, cues for breathwork Sitting Exercises knee flexion Sitting Exercise Name stretch: 1.hang off table in 2 . foot planted scoot fwd 3. on scooter board Side right Equipment Used seated on plinth Reps/Minutes over pressure x 5 breathcycle holds. Comments hanging /c overpressure and breathwork Other Exercises Step stretch Other Exercise Name Step stretch Side right Reps/Minutes 15, 30 x 2 Comments cues for LE alignment, breathwork and hold time Manual Therapy Treatment Consent Patient gave verbal consent for manual Yes treatment Soft Tissue Mobilization R leg Body Location R Quad Mobilization Type Rolling Intensity/Depth Superficial Body Position Hooklying Comments Rolling Joint Mobilizations Patella Joint R Patella Direction Inf/Sup Grade III Knee Joint R Knee Direction P<->A Grade III Self-Care/Home Management Treatment Education Patient Education Body Mechanics,Home Exercise Program Other Education Morning when waking up: Ankle pumps, Heel slides, SLR. Seated edge of bed knee flexion stretch (scoots foot back). Dangling off table w/ 3# ankle weight since yesterday. Step stool knee flexion stretch. PT-OP-T Assessment and Plan Start: 02/09/25 15:48 Freq: Status: Active Protocol: Document 02/28/25 10:39 [facility] (Rec: 02/28/25 12:02 [facility] [id number]) Physical Therapy Assessment Goals Three Impairment Right knee weakness with flexion (2-/5) and extension ( 3/5) Asbestos Abatement Worker Goal (LTG) Pt to demonstrate right knee MMT >4-/5 in both flexion and extension in order to return to previous functional mobility. LTG Duration 03/23/25 Two Impairment Significant limitations in right knee flexion (AROM 29?) Short Term Goal (STG) Pt to demonstrate improvement in right knee flexion to >90? 02/28/25: AROM 78 deg>85 deg, with overpressure 90 deg (pain -limited). Brace adjusted from knee flexion limited to 50 deg up to 90 deg. STG Duration 03/02/25 Mcfp Goal (LTG) Pt to improve active right knee flexion to >120? in order to return to prior level of function LTG Duration 03/23/25 One Impairment Pt does not have an appropriate home exercise program Short Term Goal (STG) Pt to be independent and compliant with an appropriate HEP 02/28/25: Per HEP Review: Morning when waking up: Ankle pumps, Heel slides, SLR. Seated edge of bed knee flexion stretch (scoots foot back). Dangling off table w/ 3# ankle weight since 02/27/25. Step stool knee flexion stretch. STG Duration 03/02/25 Assessment Summary Assessment Treatment focus on progressing R knee flexion ROM and strengthening and HEP review. Alvarez's R knee flexion AROM progresses from 78 degrees start of session to 85 degrees end of session, and 90 degrees w/ overpressure and cues for breath. He is educated in ways to progress his HEP for increasing R knee flexion ROM, as well as breathing technique for pain dampening via Parasympathetic N.S activation to address pain guarding, and pt demos good response. Brace knee flexion range is increased from 50 degrees to 90 degrees per discussion with evaluating PT as 50 degrees is now limiting pt's knee flexion - discussion w/ pt to use SPC in LUE when ambulating for normalizing gait mechanics as pt demos compensation patterns without. Physical Therapy Plan Frequency and Duration Frequency of Treatment 2x/Week Plan of Care Start Date 02/09/25 Plan of Care End Date 04/11/25 Therapeutic Interventions Therapeutic Interventions Balance Training,Coordination Training,Gait Training,Home Exercise Program,Joint Mobilizations,Manual Therapy, Neuromuscular Re-education, Patient/Caregiver Education, Self-Care/Home Management,Soft Tissue Mobilization,Taping, Therapeutic Activities, Therapeutic Exercises Modalities Cold Pack/Ice Massage,Electric Stimulation,Hot Packs, Ultrasound Next Visit Focus/Plan Next Note Type Treatment Note Next Visit Plan Next: Check R knee mechanics gait, use SPC. Add stretching (gastroc/soleus, hip flexor). POC: R Knee mobility, strengthening, flexibility, gait
--- NOTE | 2025-03-03 10:40 | PT.OTN ---
Current Diagnoses Pain in right knee (03/03/25) Stiffness of right knee, not elsewhere classified (03/03/25) Other abnormalities of gait and mobility (03/03/25) Displaced comminuted fracture of right patella, subsequent encounter for closed fracture with routine healing (03/03/25) Physical Therapy Treatment Note PT-OP-A Visit Information Start: 02/09/25 15:48 Freq: Status: Active Protocol: Document 03/03/25 09:45 DCW (Rec: 03/03/25 10:39 DCW [id number]) Out-Patient Physical Therapy Visit Information Visit Information Visit Type Treatment Note Visit Start Time 09:45 Visit Stop Time 10:30 Visit Number 7 Number of CRANBERRY FARM SUPERVISOR Visits 0 Evaluation Information Evaluation Date 02/09/25 PT-OP-B Current Condition Start: 02/09/25 15:48 Freq: Status: Active Protocol: Document 02/09/25 12:20 DCW (Rec: 02/09/25 16:00 DCW [id number]) Current Condition History of Current Condition Onset Date November, Current Complaints Right knee pain, stiffness s/p patellar fracture, tendon rupture History of Current Condition Pt is a 64 year old male presenting to skilled therapy six weeks s/p patellar tendon repair, eight weeks total s/p initial injury. Pt reports he was in [facility] in November, visiting his daughter . Attempted to go down the steps in front of her house, slipped on ice, and landed very hard directly on his right knee on a concrete slab. Pt reports that bottom 10% of his patella was broken off, resulting in a retraction of his quad tendon and most of his patella up his thigh. Notes he had a surgical repair , the avulsion was too small to save, so it was removed from the patella tendon, and then the remaining patella was smoothed out, and the patellar tendon waswoven up through three hols drilled into the patella. Was locked into full extension for six weeks following surgery. Had a follow-up with the surgeon on 02/06/25, and his brace was unlocked from 0-50?. Notes he currently has no restrictions, the brace is locked at 50? just in case theres a fall. Currently using a LBQC for assistance ambulating. Pt reports surgeon wants his knee at 90? flexion two weeks from now, and 120? flexion in one month. Admits knee just feels really stiff, he is unable to flex far enough to feel much pain. PT-OP-C Subjective Start: 02/09/25 15:48 Freq: Status: Active Protocol: Document 03/03/25 09:45 DCW (Rec: 03/03/25 10:39 DCW [id number]) OP-PT Subjective Patient Comments Patient Comments Pt reports he really pushed flexing his knee yesterday PT-OP-F Manual Assessment Start: 02/09/25 15:48 Freq: Status: Active Protocol: Document 02/09/25 12:20 DCW (Rec: 02/09/25 17:41 DCW [id number]) Manual Assessments Joint Mobility Assessment Joint Mobility Assessment Joint effusion along right knee, stiffness with passive flexion, very limited mobility PT-OP-J Posture/Palpation/Skin Start: 02/09/25 15:48 Freq: Status: Active Protocol: Document 02/17/25 10:47 SP (Rec: 02/17/25 16:04 SP [id number]) Skin Assessment Circumference Measurement 3 Location Right knee 6 cm superior to joint line Measurement (Centimeters) 50.1 Comments Left = 47.5 cm 2 Location Right knee joint line Measurement (Centimeters) 47.0 Comments Left = 44.8 cm 1 Location Right knee 6 cm inferior to joint line Measurement (Centimeters) 34.8 Comments Left = 43.1 cm PT-OP-K Range of Motion Start: 02/09/25 15:48 Freq: Status: Active Protocol: Document 02/09/25 12:20 DCW (Rec: 02/09/25 17:41 DCW [id number]) Knee Goniometric Range of Motion Knee Right Knee ROM WFL No Patient Position Supine Flexion Active (degrees) 29 Flexion Passive (degrees) 36 Extension Active (degrees) 0 Extension Passive (degrees) 0 Left Knee ROM WFL Yes Patient Position Supine Flexion Active (degrees) 130 Extension Active (degrees) 0 Knee ROM Limitations Knee ROM Limitations Soft Tissue Tightness,Bony Restriction,Muscle Tone,Pain, Swelling PT-OP-M Strength Start: 02/09/25 15:48 Freq: Status: Active Protocol: Document 02/09/25 12:20 DCW (Rec: 02/09/25 17:41 DCW [id number]) Knee Strength Knee Manual Muscle Testing Right Flexion (S2) 2- Poor- Extension (L3) 3 Fair Left Flexion (S2) 5 Normal Extension (L3) 5 Normal PT-OP-Q Treatments Start: 02/09/25 15:48 Freq: Status: Active Protocol: Document 03/03/25 09:45 DCW (Rec: 03/03/25 10:39 DCW [id number]) Cardio Equipment Recumbent Bicycle Duration (Minutes) 6 Seat Position 10 Other 80? max - partial rotation, focus on knee flexion ROM Gym Equipment Shuttle Recovery Bilateral Squats Details Switch between bilateral/ unilateral Resistance 50# 2 navy bands Reps/Time 88? - Focus on R knee flexion AAROM Therapeutic Exercises Sitting Exercises knee flexion Sitting Exercise Name Knee flexion stretch - hang off table in seated Comments 91? while hanging /c overpressure Gait Training Gait Activity Knee Flexion Device Used SPC Treatment Focus Focus on decreasing stiff knee ambulation, foot clearance, push-off Manual Therapy Treatment Consent Patient gave verbal consent for manual Yes treatment Soft Tissue Mobilization R leg Body Location R Quad Mobilization Type Rolling Intensity/Depth Superficial Body Position Hooklying Comments Rolling Joint Mobilizations Patella Joint R Patella Direction Inf/Sup Grade III Knee Joint R Knee Direction P<->A Grade III Comments Post-mobilization ROM 94? flexion PT-OP-T Assessment and Plan Start: 02/09/25 15:48 Freq: Status: Active Protocol: Document 03/03/25 09:45 DCW (Rec: 03/03/25 10:39 DCW [id number]) Physical Therapy Assessment Impairments Impairments Activity Tolerance,Balance, Edema,Functional Activities, Functional Mobility,Gait, Integument,Pain,ROM,Soft Tissue Mobility,Strength,Tone Goals Three Impairment Right knee weakness with flexion (2-/5) and extension ( 3/5) Halfway Goal (LTG) Pt to demonstrate right knee MMT >4-/5 in both flexion and extension in order to return to previous functional mobility. LTG Duration 03/23/25 Two Impairment Significant limitations in right knee flexion (AROM 29?) Short Term Goal (STG) Pt to demonstrate improvement in right knee flexion to >90? STG Duration Met Exercise Rider Goal (LTG) Pt to improve active right knee flexion to >120? in order to return to prior level of function LTG Duration 03/23/25 One Impairment Pt does not have an appropriate home exercise program Short Term Goal (STG) Pt to be independent and compliant with an appropriate HEP STG Duration 03/02/25 Assessment Summary Assessment Pt exhibiting very good progress, made it to 94? PROM today following joint mobilization. Continue focus on flexion and improving gait. Physical Therapy Plan Frequency and Duration Frequency of Treatment 2x/Week Plan of Care Start Date 02/09/25 Plan of Care End Date 04/11/25 Therapeutic Interventions Therapeutic Interventions Balance Training,Coordination Training,Gait Training,Home Exercise Program,Joint Mobilizations,Manual Therapy, Neuromuscular Re-education, Patient/Caregiver Education, Self-Care/Home Management,Soft Tissue Mobilization,Taping, Therapeutic Activities, Therapeutic Exercises Modalities Cold Pack/Ice Massage,Electric Stimulation,Hot Packs, Ultrasound Next Visit Focus/Plan Next Note Type Treatment Note Next Visit Plan Next: Check R knee mechanics gait, use SPC. Add stretching (gastroc/soleus, hip flexor). POC: R Knee mobility, strengthening, flexibility, gait
--- NOTE | 2025-03-07 11:26 | PT.OTN ---
Current Diagnoses Pain in right knee (03/07/25) Stiffness of right knee, not elsewhere classified (03/07/25) Other abnormalities of gait and mobility (03/07/25) Displaced comminuted fracture of right patella, subsequent encounter for closed fracture with routine healing (03/07/25) Physical Therapy Treatment Note PT-OP-A Visit Information Start: 02/09/25 15:48 Freq: Status: Active Protocol: Document 03/07/25 10:45 DCW (Rec: 03/07/25 11:25 DCW [id number]) Out-Patient Physical Therapy Visit Information Visit Information Visit Type Treatment Note Visit Start Time 10:45 Visit Stop Time 11:30 Visit Number 8 Number of WATER FILTRATION TECHNICIAN Visits 0 Evaluation Information Evaluation Date 02/09/25 PT-OP-B Current Condition Start: 02/09/25 15:48 Freq: Status: Active Protocol: Document 02/09/25 12:20 DCW (Rec: 02/09/25 16:00 DCW [id number]) Current Condition History of Current Condition Onset Date November, Current Complaints Right knee pain, stiffness s/p patellar fracture, tendon rupture History of Current Condition Pt is a 64 year old male presenting to skilled therapy six weeks s/p patellar tendon repair, eight weeks total s/p initial injury. Pt reports he was in [facility] in November, visiting his daughter . Attempted to go down the steps in front of her house, slipped on ice, and landed very hard directly on his right knee on a concrete slab. Pt reports that bottom 10% of his patella was broken off, resulting in a retraction of his quad tendon and most of his patella up his thigh. Notes he had a surgical repair , the avulsion was too small to save, so it was removed from the patella tendon, and then the remaining patella was smoothed out, and the patellar tendon waswoven up through three hols drilled into the patella. Was locked into full extension for six weeks following surgery. Had a follow-up with the surgeon on 02/06/25, and his brace was unlocked from 0-50?. Notes he currently has no restrictions, the brace is locked at 50? just in case theres a fall. Currently using a LBQC for assistance ambulating. Pt reports surgeon wants his knee at 90? flexion two weeks from now, and 120? flexion in one month. Admits knee just feels really stiff, he is unable to flex far enough to feel much pain. PT-OP-C Subjective Start: 02/09/25 15:48 Freq: Status: Active Protocol: Document 03/07/25 10:45 DCW (Rec: 03/07/25 11:25 DCW [id number]) OP-PT Subjective Patient Comments Patient Comments I think the ROM is doing better, but it has felt stiffer after being motionless the past few days. PT-OP-F Manual Assessment Start: 02/09/25 15:48 Freq: Status: Active Protocol: Document 02/09/25 12:20 DCW (Rec: 02/09/25 17:41 DCW [id number]) Manual Assessments Joint Mobility Assessment Joint Mobility Assessment Joint effusion along right knee, stiffness with passive flexion, very limited mobility PT-OP-J Posture/Palpation/Skin Start: 02/09/25 15:48 Freq: Status: Active Protocol: Document 02/17/25 10:47 SP (Rec: 02/17/25 16:04 SP [id number]) Skin Assessment Circumference Measurement 3 Location Right knee 6 cm superior to joint line Measurement (Centimeters) 50.1 Comments Left = 47.5 cm 2 Location Right knee joint line Measurement (Centimeters) 47.0 Comments Left = 44.8 cm 1 Location Right knee 6 cm inferior to joint line Measurement (Centimeters) 34.8 Comments Left = 43.1 cm PT-OP-K Range of Motion Start: 02/09/25 15:48 Freq: Status: Active Protocol: Document 02/09/25 12:20 DCW (Rec: 02/09/25 17:41 DCW [id number]) Knee Goniometric Range of Motion Knee Right Knee ROM WFL No Patient Position Supine Flexion Active (degrees) 29 Flexion Passive (degrees) 36 Extension Active (degrees) 0 Extension Passive (degrees) 0 Left Knee ROM WFL Yes Patient Position Supine Flexion Active (degrees) 130 Extension Active (degrees) 0 Knee ROM Limitations Knee ROM Limitations Soft Tissue Tightness,Bony Restriction,Muscle Tone,Pain, Swelling PT-OP-M Strength Start: 02/09/25 15:48 Freq: Status: Active Protocol: Document 02/09/25 12:20 DCW (Rec: 02/09/25 17:41 DCW [id number]) Knee Strength Knee Manual Muscle Testing Right Flexion (S2) 2- Poor- Extension (L3) 3 Fair Left Flexion (S2) 5 Normal Extension (L3) 5 Normal PT-OP-Q Treatments Start: 02/09/25 15:48 Freq: Status: Active Protocol: Document 03/07/25 10:45 DCW (Rec: 03/07/25 11:25 DCW [id number]) Cardio Equipment Recumbent Bicycle Duration (Minutes) 6 Seat Position 8 Other 90? max - partial rotation, focus on knee flexion ROM Therapeutic Exercises Sitting Exercises knee flexion Sitting Exercise Name Knee flexion stretch - hang off table in seated Comments 100? while hanging /c overpressure Standing Exercises Hamstring Curls Standing Exercise Name Hamstring Curls Side right Resistance 5# Other Exercises Quadruped Other Exercise Name Partial child's pose - knee flexion focus Step stretch Other Exercise Name Step stretch Side right Comments 92? max Manual Therapy Treatment Consent Patient gave verbal consent for manual Yes treatment Soft Tissue Mobilization R leg Body Location R Quad Mobilization Type Rolling Intensity/Depth Superficial Body Position Hooklying Comments Rolling Joint Mobilizations Patella Joint R Patella Direction Inf/Sup Grade III Knee Joint R Knee Direction P<->A Grade III Comments Post-mobilization ROM 100? flexion PT-OP-T Assessment and Plan Start: 02/09/25 15:48 Freq: Status: Active Protocol: Document 03/07/25 10:45 DCW (Rec: 03/07/25 11:25 DCW [id number]) Physical Therapy Assessment Impairments Impairments Activity Tolerance,Balance, Edema,Functional Activities, Functional Mobility,Gait, Integument,Pain,ROM,Soft Tissue Mobility,Strength,Tone Goals Three Impairment Right knee weakness with flexion (2-/5) and extension ( 3/5) Rack Puncher Goal (LTG) Pt to demonstrate right knee MMT >4-/5 in both flexion and extension in order to return to previous functional mobility. LTG Duration 03/23/25 Two Impairment Significant limitations in right knee flexion (AROM 29?) Short Term Goal (STG) Pt to demonstrate improvement in right knee flexion to >90? STG Duration Met Senior Living Goal (LTG) Pt to improve active right knee flexion to >120? in order to return to prior level of function LTG Duration 03/23/25 One Impairment Pt does not have an appropriate home exercise program Short Term Goal (STG) Pt to be independent and compliant with an appropriate HEP STG Duration 03/02/25 Assessment Summary Assessment Pt continues to progress ROM, max of 100? PROM today, AROM of 93?. Doing very well with HEP, compliant with all activities. Work on mobility and knee strengthening. Physical Therapy Plan Frequency and Duration Frequency of Treatment 2x/Week Plan of Care Start Date 02/09/25 Plan of Care End Date 04/11/25 Therapeutic Interventions Therapeutic Interventions Balance Training,Coordination Training,Gait Training,Home Exercise Program,Joint Mobilizations,Manual Therapy, Neuromuscular Re-education, Patient/Caregiver Education, Self-Care/Home Management,Soft Tissue Mobilization,Taping, Therapeutic Activities, Therapeutic Exercises Modalities Cold Pack/Ice Massage,Electric Stimulation,Hot Packs, Ultrasound Next Visit Focus/Plan Next Note Type Treatment Note Next Visit Plan Next: Check R knee mechanics gait, use SPC. Add stretching (gastroc/soleus, hip flexor). POC: R Knee mobility, strengthening, flexibility, gait
--- NOTE | 2025-03-10 11:37 | PT.OTN ---
Current Diagnoses Pain in right knee (03/10/25) Stiffness of right knee, not elsewhere classified (03/10/25) Other abnormalities of gait and mobility (03/10/25) Displaced comminuted fracture of right patella, subsequent encounter for closed fracture with routine healing (03/10/25) Physical Therapy Treatment Note PT-OP-A Visit Information Start: 02/09/25 15:48 Freq: Status: Active Protocol: Document 03/10/25 11:07 NBM (Rec: 03/10/25 11:36 NBM Laptop) Out-Patient Physical Therapy Visit Information Visit Information Visit Type Treatment Note Visit Start Time 10:55 Visit Stop Time 11:33 Visit Number 9 Number of WELD INSPECTOR Visits 1 Evaluation Information Evaluation Date 02/09/25 PT-OP-B Current Condition Start: 02/09/25 15:48 Freq: Status: Active Protocol: Document 02/09/25 12:20 DCW (Rec: 02/09/25 16:00 DCW [id number]) Current Condition History of Current Condition Onset Date November, Current Complaints Right knee pain, stiffness s/p patellar fracture, tendon rupture History of Current Condition Pt is a 64 year old male presenting to skilled therapy six weeks s/p patellar tendon repair, eight weeks total s/p initial injury. Pt reports he was in [facility] in November, visiting his daughter . Attempted to go down the steps in front of her house, slipped on ice, and landed very hard directly on his right knee on a concrete slab. Pt reports that bottom 10% of his patella was broken off, resulting in a retraction of his quad tendon and most of his patella up his thigh. Notes he had a surgical repair , the avulsion was too small to save, so it was removed from the patella tendon, and then the remaining patella was smoothed out, and the patellar tendon waswoven up through three hols drilled into the patella. Was locked into full extension for six weeks following surgery. Had a follow-up with the surgeon on 02/06/25, and his brace was unlocked from 0-50?. Notes he currently has no restrictions, the brace is locked at 50? just in case theres a fall. Currently using a LBQC for assistance ambulating. Pt reports surgeon wants his knee at 90? flexion two weeks from now, and 120? flexion in one month. Admits knee just feels really stiff, he is unable to flex far enough to feel much pain. PT-OP-C Subjective Start: 02/09/25 15:48 Freq: Status: Active Protocol: Document 03/10/25 11:07 NBM (Rec: 03/10/25 11:36 NBM Laptop) OP-PT Subjective Patient Comments Patient Comments Alvarez reports he is stiffer today after sitting a lot yesterday, and he focused on stretches. Surgeon is pleased with his ROM to 100 deg and says if he gets to 120 degrees in next 4-6 weeks he does not need to see him again. He is not really using the brace now , and wants to get his R knee ROM up to 130 degrees to match his L. Thursday he practiced kneeling back on knees like at Thursday PT visit. PT-OP-F Manual Assessment Start: 02/09/25 15:48 Freq: Status: Active Protocol: Document 02/09/25 12:20 DCW (Rec: 02/09/25 17:41 DCW [id number]) Manual Assessments Joint Mobility Assessment Joint Mobility Assessment Joint effusion along right knee, stiffness with passive flexion, very limited mobility PT-OP-J Posture/Palpation/Skin Start: 02/09/25 15:48 Freq: Status: Active Protocol: Document 02/17/25 10:47 SP (Rec: 02/17/25 16:04 SP [id number]) Skin Assessment Circumference Measurement 3 Location Right knee 6 cm superior to joint line Measurement (Centimeters) 50.1 Comments Left = 47.5 cm 2 Location Right knee joint line Measurement (Centimeters) 47.0 Comments Left = 44.8 cm 1 Location Right knee 6 cm inferior to joint line Measurement (Centimeters) 34.8 Comments Left = 43.1 cm PT-OP-K Range of Motion Start: 02/09/25 15:48 Freq: Status: Active Protocol: Document 02/09/25 12:20 DCW (Rec: 02/09/25 17:41 DCW [id number]) Knee Goniometric Range of Motion Knee Right Knee ROM WFL No Patient Position Supine Flexion Active (degrees) 29 Flexion Passive (degrees) 36 Extension Active (degrees) 0 Extension Passive (degrees) 0 Left Knee ROM WFL Yes Patient Position Supine Flexion Active (degrees) 130 Extension Active (degrees) 0 Knee ROM Limitations Knee ROM Limitations Soft Tissue Tightness,Bony Restriction,Muscle Tone,Pain, Swelling PT-OP-M Strength Start: 02/09/25 15:48 Freq: Status: Active Protocol: Document 02/09/25 12:20 DCW (Rec: 02/09/25 17:41 DCW [id number]) Knee Strength Knee Manual Muscle Testing Right Flexion (S2) 2- Poor- Extension (L3) 3 Fair Left Flexion (S2) 5 Normal Extension (L3) 5 Normal PT-OP-Q Treatments Start: 02/09/25 15:48 Freq: Status: Active Protocol: Document 03/10/25 11:07 NBM (Rec: 03/10/25 11:36 NBM Laptop) Cardio Equipment Recumbent Bicycle Duration (Minutes) 6 Seat Position 9>8 Other 96? max - focus on knee flexion ROM, partial rotation> reverse full rev x8 Therapeutic Exercises Supine Exercises Flexion stretch Supine Exercise Name manual flexion stretch of knee towards chest Side right Reps/Minutes 3x 10SH Comments w/ breathwork, improved ROM w/ repetition Heel Slides Supine Exercise Name 1. Heel slides 2. w/ knee flexion stretch hold 3. wall slides<>R knee ext. Side right Equipment Used end of session, w/ breathwork Reps/Minutes x10 ea Comments supine max AROM 105 deg, w/ overpressure 115 deg Sitting Exercises knee flexion Sitting Exercise Name Knee flexion stretch - hang off table in seated Manual Therapy Treatment Consent Patient gave verbal consent for manual Yes treatment Soft Tissue Mobilization R leg Body Location R Quad Mobilization Type Rolling Intensity/Depth Superficial Body Position Hooklying Comments Rolling Joint Mobilizations Patella Joint R Patella Direction Inf/Sup Grade III Knee Joint R Knee Direction P<->A Grade III PT-OP-T Assessment and Plan Start: 02/09/25 15:48 Freq: Status: Active Protocol: Document 03/10/25 11:07 NBM (Rec: 03/10/25 11:36 NBM Laptop) Physical Therapy Assessment Goals Three Impairment Right knee weakness with flexion (2-/5) and extension ( 3/5) Edge Burnisher Goal (LTG) Pt to demonstrate right knee MMT >4-/5 in both flexion and extension in order to return to previous functional mobility. LTG Duration 03/23/25 Two Impairment Significant limitations in right knee flexion (AROM 29?) Short Term Goal (STG) Pt to demonstrate improvement in right knee flexion to >90? STG Duration Met Half-Way Goal (LTG) Pt to improve active right knee flexion to >120? in order to return to prior level of function LTG Duration 03/23/25 One Impairment Pt does not have an appropriate home exercise program Short Term Goal (STG) Pt to be independent and compliant with an appropriate HEP STG Duration 03/02/25 Assessment Summary Assessment Treatment focus on improving R knee flexion ROM. Start of session Alvarez presents with 96 degrees R knee flexion AROM and is able to complete full revolutions backwards on recumbent elliptical at seat level 8 x8 for the first time today, and continues to progress towards forward revolutions. End of session pt improves AROM R knee flexion by 9 degrees to 105 deg, and by 19 degrees w/ overpressure and breathwork 115 deg. Pt reports he thinks he could complete forward revolutions on recumbent bike end of session but declines to attempt due to soreness. Ice is offered and declined w/ pt planning to ice R knee at home . Wall slides added to HEP - HO declined. Physical Therapy Plan Frequency and Duration Frequency of Treatment 2x/Week Plan of Care Start Date 02/09/25 Plan of Care End Date 04/11/25 Therapeutic Interventions Therapeutic Interventions Balance Training,Coordination Training,Gait Training,Home Exercise Program,Joint Mobilizations,Manual Therapy, Neuromuscular Re-education, Patient/Caregiver Education, Self-Care/Home Management,Soft Tissue Mobilization,Taping, Therapeutic Activities, Therapeutic Exercises Modalities Cold Pack/Ice Massage,Electric Stimulation,Hot Packs, Ultrasound Next Visit Focus/Plan Next Note Type Treatment Note Next Visit Plan Next: Check R knee mechanics gait, use SPC. Add stretching (gastroc/soleus, hip flexor). POC: R Knee mobility, strengthening, flexibility, gait
--- NOTE | 2025-03-14 12:20 | PT.OTN ---
Current Diagnoses Pain in right knee (03/14/25) Stiffness of right knee, not elsewhere classified (03/14/25) Other abnormalities of gait and mobility (03/14/25) Displaced comminuted fracture of right patella, subsequent encounter for closed fracture with routine healing (03/14/25) Physical Therapy Treatment Note PT-OP-A Visit Information Start: 02/09/25 15:48 Freq: Status: Active Protocol: Document 03/14/25 11:35 SP (Rec: 03/14/25 12:30 SP Laptop) Out-Patient Physical Therapy Visit Information Visit Information Visit Type Treatment Note Visit Note BI Mendoza assisted with ther ex instruction and ROM measurements while under direction supervision of KATARINA Haji with permission of pt. Visit Start Time 11:35 Visit Stop Time 12:20 Visit Number 10 Number of COAL WEIGHER Visits 2 PT-OP-B Current Condition Start: 02/09/25 15:48 Freq: Status: Active Protocol: Document 02/09/25 12:20 DCW (Rec: 02/09/25 16:00 DCW [id number]) Current Condition History of Current Condition Onset Date November, Current Complaints Right knee pain, stiffness s/p patellar fracture, tendon rupture History of Current Condition Pt is a 64 year old male presenting to skilled therapy six weeks s/p patellar tendon repair, eight weeks total s/p initial injury. Pt reports he was in [facility] in November, visiting his daughter . Attempted to go down the steps in front of her house, slipped on ice, and landed very hard directly on his right knee on a concrete slab. Pt reports that bottom 10% of his patella was broken off, resulting in a retraction of his quad tendon and most of his patella up his thigh. Notes he had a surgical repair , the avulsion was too small to save, so it was removed from the patella tendon, and then the remaining patella was smoothed out, and the patellar tendon waswoven up through three hols drilled into the patella. Was locked into full extension for six weeks following surgery. Had a follow-up with the surgeon on 02/06/25, and his brace was unlocked from 0-50?. Notes he currently has no restrictions, the brace is locked at 50? just in case theres a fall. Currently using a LBQC for assistance ambulating. Pt reports surgeon wants his knee at 90? flexion two weeks from now, and 120? flexion in one month. Admits knee just feels really stiff, he is unable to flex far enough to feel much pain. PT-OP-C Subjective Start: 02/09/25 15:48 Freq: Status: Active Protocol: Document 03/14/25 11:35 SP (Rec: 03/14/25 12:30 SP Laptop) OP-PT Subjective Patient Comments Patient Comments Alvarez reports he is feeling good after last treatment. He still has the goal to reach 130 deg knee flexion. PT-OP-F Manual Assessment Start: 02/09/25 15:48 Freq: Status: Active Protocol: Document 02/09/25 12:20 DCW (Rec: 02/09/25 17:41 DCW [id number]) Manual Assessments Joint Mobility Assessment Joint Mobility Assessment Joint effusion along right knee, stiffness with passive flexion, very limited mobility PT-OP-J Posture/Palpation/Skin Start: 02/09/25 15:48 Freq: Status: Active Protocol: Document 02/17/25 10:47 SP (Rec: 02/17/25 16:04 SP [id number]) Skin Assessment Circumference Measurement 3 Location Right knee 6 cm superior to joint line Measurement (Centimeters) 50.1 Comments Left = 47.5 cm 2 Location Right knee joint line Measurement (Centimeters) 47.0 Comments Left = 44.8 cm 1 Location Right knee 6 cm inferior to joint line Measurement (Centimeters) 34.8 Comments Left = 43.1 cm PT-OP-K Range of Motion Start: 02/09/25 15:48 Freq: Status: Active Protocol: Document 02/09/25 12:20 DCW (Rec: 02/09/25 17:41 DCW [id number]) Knee Goniometric Range of Motion Knee Right Knee ROM WFL No Patient Position Supine Flexion Active (degrees) 29 Flexion Passive (degrees) 36 Extension Active (degrees) 0 Extension Passive (degrees) 0 Left Knee ROM WFL Yes Patient Position Supine Flexion Active (degrees) 130 Extension Active (degrees) 0 Knee ROM Limitations Knee ROM Limitations Soft Tissue Tightness,Bony Restriction,Muscle Tone,Pain, Swelling PT-OP-M Strength Start: 02/09/25 15:48 Freq: Status: Active Protocol: Document 02/09/25 12:20 DCW (Rec: 02/09/25 17:41 DCW [id number]) Knee Strength Knee Manual Muscle Testing Right Flexion (S2) 2- Poor- Extension (L3) 3 Fair Left Flexion (S2) 5 Normal Extension (L3) 5 Normal PT-OP-Q Treatments Start: 02/09/25 15:48 Freq: Status: Active Protocol: Document 03/14/25 11:35 SP (Rec: 03/14/25 12:30 SP Laptop) Cardio Equipment Recumbent Bicycle Duration (Minutes) 10 Resistance 0 Seat Position 10 (4 min)> 9 (5 min)> 8 (one min) Other backward, mostly forward motion; focusing on knee flex ROM Therapeutic Exercises Sitting Exercises STS Sitting Exercise Name added to HEP (forgot give HO) Side bilateral Equipment Used mesh chair 18 Reps/Minutes 5 reps Comments hand on lap> no UE, cues for hip hinge asc/desc control, R foot fwd Standing Exercises Hamstring Curls Standing Exercise Name Hamstring Curls Side bilateral Resistance 5# Equipment Used Rail for support Reps/Minutes 2x10 each side Comments Upright posture, knees parallel Other Exercises Step stretch Other Exercise Name knee/ankle mobility- self HEP Side right Equipment Used foot on BIG chair, contact chair back Reps/Minutes 10Sh x10 Comments max 118* Gait Training Gait Activity Front mirror Description gait phase R knee/hip flexion during swing through, heel strike Device Used none Distance/Duration multiple laps Treatment Focus normalize gait phase Comments Improved knee and hip flexion mechanics RLE with use mirror, cued TA for eccentric LLE heel strike. Discussed decrease SPC support for normalizing gait and trunk improved midline now longer distances. Neuro Re-Education Treatment Balance Activities Hurdles Details Forward/Lateral/backward walking Equipment 6 hurdles, PRN rail lessened contact with laps Reps/Duration 3 laps each Comments Step to gait pattern. VC's to lift toes and flex knee & hip to clear hurdles. PT-OP-T Assessment and Plan Start: 02/09/25 15:48 Freq: Status: Active Protocol: Document 03/14/25 11:35 SP (Rec: 03/14/25 12:30 SP Laptop) Physical Therapy Assessment Goals Three Impairment Right knee weakness with flexion (2-/5) and extension ( 3/5) Prison Goal (LTG) Pt to demonstrate right knee MMT >4-/5 in both flexion and extension in order to return to previous functional mobility. LTG Duration 03/23/25 Two Impairment Significant limitations in right knee flexion (AROM 29?) Short Term Goal (STG) Pt to demonstrate improvement in right knee flexion to >90? STG Duration Met Career Coordinator Goal (LTG) Pt to improve active right knee flexion to >120? in order to return to prior level of function LTG Duration 03/23/25 One Impairment Pt does not have an appropriate home exercise program Short Term Goal (STG) Pt to be independent and compliant with an appropriate HEP STG Duration 03/02/25 Assessment Summary Assessment Improved R knee flexion mobility with increased height of chair vs 2nd step. Tolerated ravindra stepping with cues for hip and knee flexion and DF toe up. Was able to increase range to 118 deg by end of tx. Physical Therapy Plan Frequency and Duration Frequency of Treatment 2x/Week Plan of Care Start Date 02/09/25 Plan of Care End Date 04/11/25 Therapeutic Interventions Therapeutic Interventions Balance Training,Coordination Training,Gait Training,Home Exercise Program,Joint Mobilizations,Manual Therapy, Neuromuscular Re-education, Patient/Caregiver Education, Self-Care/Home Management,Soft Tissue Mobilization,Taping, Therapeutic Activities, Therapeutic Exercises Modalities Cold Pack/Ice Massage,Electric Stimulation,Hot Packs, Ultrasound Next Visit Focus/Plan Next Note Type Progress Note Next Visit Plan PN due next tx. Next: Check R knee mechanics gait. Add stretching (gastroc /soleus for DF support). POC: R Knee mobility, strengthening, flexibility, gait
--- NOTE | 2025-03-17 10:31 | PT.OTN ---
Current Diagnoses Pain in right knee (03/17/25) Stiffness of right knee, not elsewhere classified (03/17/25) Other abnormalities of gait and mobility (03/17/25) Displaced comminuted fracture of right patella, subsequent encounter for closed fracture with routine healing (03/17/25) Physical Therapy Treatment Note PT-OP-A Visit Information Start: 02/09/25 15:48 Freq: Status: Active Protocol: Document 03/17/25 09:45 DCW (Rec: 03/17/25 10:31 DCW [id number]) Out-Patient Physical Therapy Visit Information Visit Information Visit Type Progress Note Visit Start Time 09:45 Visit Stop Time 10:30 Visit Number 11 Number of SENIOR QUALITY CONTROL INSPECTOR Visits 0 Evaluation Information Evaluation Date 02/09/25 PT-OP-B Current Condition Start: 02/09/25 15:48 Freq: Status: Active Protocol: Document 02/09/25 12:20 DCW (Rec: 02/09/25 16:00 DCW [id number]) Current Condition History of Current Condition Onset Date November, Current Complaints Right knee pain, stiffness s/p patellar fracture, tendon rupture History of Current Condition Pt is a 64 year old male presenting to skilled therapy six weeks s/p patellar tendon repair, eight weeks total s/p initial injury. Pt reports he was in [facility] in November, visiting his daughter . Attempted to go down the steps in front of her house, slipped on ice, and landed very hard directly on his right knee on a concrete slab. Pt reports that bottom 10% of his patella was broken off, resulting in a retraction of his quad tendon and most of his patella up his thigh. Notes he had a surgical repair , the avulsion was too small to save, so it was removed from the patella tendon, and then the remaining patella was smoothed out, and the patellar tendon waswoven up through three hols drilled into the patella. Was locked into full extension for six weeks following surgery. Had a follow-up with the surgeon on 02/06/25, and his brace was unlocked from 0-50?. Notes he currently has no restrictions, the brace is locked at 50? just in case theres a fall. Currently using a LBQC for assistance ambulating. Pt reports surgeon wants his knee at 90? flexion two weeks from now, and 120? flexion in one month. Admits knee just feels really stiff, he is unable to flex far enough to feel much pain. PT-OP-C Subjective Start: 02/09/25 15:48 Freq: Status: Active Protocol: Document 03/17/25 09:45 DCW (Rec: 03/17/25 10:31 DCW [id number]) OP-PT Subjective Patient Comments Patient Comments Pt reports he has been doing a lot more walking, anywhere from 0.5 to 1.5 miles over the past week PT-OP-F Manual Assessment Start: 02/09/25 15:48 Freq: Status: Active Protocol: Document 02/09/25 12:20 DCW (Rec: 02/09/25 17:41 DCW [id number]) Manual Assessments Joint Mobility Assessment Joint Mobility Assessment Joint effusion along right knee, stiffness with passive flexion, very limited mobility PT-OP-J Posture/Palpation/Skin Start: 02/09/25 15:48 Freq: Status: Active Protocol: Document 02/17/25 10:47 SP (Rec: 02/17/25 16:04 SP [id number]) Skin Assessment Circumference Measurement 3 Location Right knee 6 cm superior to joint line Measurement (Centimeters) 50.1 Comments Left = 47.5 cm 2 Location Right knee joint line Measurement (Centimeters) 47.0 Comments Left = 44.8 cm 1 Location Right knee 6 cm inferior to joint line Measurement (Centimeters) 34.8 Comments Left = 43.1 cm PT-OP-K Range of Motion Start: 02/09/25 15:48 Freq: Status: Active Protocol: Document 02/09/25 12:20 DCW (Rec: 02/09/25 17:41 DCW [id number]) Knee Goniometric Range of Motion Knee Right Knee ROM WFL No Patient Position Supine Flexion Active (degrees) 29 Flexion Passive (degrees) 36 Extension Active (degrees) 0 Extension Passive (degrees) 0 Left Knee ROM WFL Yes Patient Position Supine Flexion Active (degrees) 130 Extension Active (degrees) 0 Knee ROM Limitations Knee ROM Limitations Soft Tissue Tightness,Bony Restriction,Muscle Tone,Pain, Swelling PT-OP-M Strength Start: 02/09/25 15:48 Freq: Status: Active Protocol: Document 02/09/25 12:20 DCW (Rec: 02/09/25 17:41 DCW [id number]) Knee Strength Knee Manual Muscle Testing Right Flexion (S2) 2- Poor- Extension (L3) 3 Fair Left Flexion (S2) 5 Normal Extension (L3) 5 Normal PT-OP-Q Treatments Start: 02/09/25 15:48 Freq: Status: Active Protocol: Document 03/17/25 09:45 DCW (Rec: 03/17/25 10:31 NCW [id number]) Cardio Equipment Recumbent Bicycle Duration (Minutes) 6 Resistance 1 Seat Position 9 (3 min)->8 (3 min) Other mostly forward motion Gym Equipment Shuttle Recovery Bilateral Squats Resistance 100# (four [employer]) Reps/Time Flexion 109? - Limited by machine Therapeutic Exercises Supine Exercises Heel Slides Supine Exercise Name Heel slides Side right Reps/Minutes x10 ea Comments supine AROM 105? Sitting Exercises Hamstring Sitting Exercise Name Stool Racing - Hamstring curl/ Quad Extension Side bilateral Standing Exercises Hamstring Curls Standing Exercise Name Hamstring Curls Side bilateral Resistance 5# Equipment Used Rail for support Reps/Minutes 2x10 each side Manual Therapy Treatment Joint Mobilizations Patella Joint R Patella Direction Inf/Sup Grade III Knee Joint R Knee Direction P<->A Grade III Neuro Re-Education Treatment Balance Activities Hurdles Details Forward/Lateral/backward walking Equipment 6 hurdles, PRN rail, 5# AW Reps/Duration 3 laps each Comments Step to gait pattern. VC's to lift toes and flex knee & hip to clear hurdles. PT-OP-T Assessment and Plan Start: 02/09/25 15:48 Freq: Status: Active Protocol: Document 03/17/25 09:45 DCW (Rec: 03/17/25 10:31 DCW [id number]) Physical Therapy Assessment Impairments Impairments Activity Tolerance,Balance, Edema,Functional Activities, Functional Mobility,Gait, Integument,Pain,ROM,Soft Tissue Mobility,Strength,Tone Goals Three Impairment Right knee weakness with flexion (2-/5) and extension ( 3/5) Long-Term Goal (LTG) Pt to demonstrate right knee MMT >4-/5 in both flexion and extension in order to return to previous functional mobility. LTG Duration 04/11/25 - Improving Two Impairment Significant limitations in right knee flexion (AROM 29?) Short Term Goal (STG) Pt to demonstrate improvement in right knee flexion to >90? STG Duration Met Long-Term Goal (LTG) Pt to improve active right knee flexion to >120? in order to return to prior level of function LTG Duration 04/11/25 - Improving One Impairment Pt does not have an appropriate home exercise program Short Term Goal (STG) Pt to be independent and compliant with an appropriate HEP STG Duration Met Assessment Summary Assessment Pt continues to show good improvement, addition of more strengthening exercises today. Tolerated well, but noted fairly significant fatigue, more that usual. Continue to work on knee ROM, quad/ hamstring strengthening, gait, and functional mobility. Physical Therapy Plan Frequency and Duration Frequency of Treatment 2x/Week Plan of Care Start Date 02/09/25 Plan of Care End Date 04/11/25 Therapeutic Interventions Therapeutic Interventions Balance Training,Coordination Training,Gait Training,Home Exercise Program,Joint Mobilizations,Manual Therapy, Neuromuscular Re-education, Patient/Caregiver Education, Self-Care/Home Management,Soft Tissue Mobilization,Taping, Therapeutic Activities, Therapeutic Exercises Modalities Cold Pack/Ice Massage,Electric Stimulation,Hot Packs, Ultrasound Next Visit Focus/Plan Next Note Type Treatment Note Next Visit Plan Next: Check R knee mechanics gait. Add stretching (gastroc /soleus for DF support). POC: R Knee mobility, strengthening, flexibility, gait
--- NOTE | 2025-03-21 11:30 | PT.OTN ---
Current Diagnoses Pain in right knee (03/21/25) Stiffness of right knee, not elsewhere classified (03/21/25) Other abnormalities of gait and mobility (03/21/25) Displaced comminuted fracture of right patella, subsequent encounter for closed fracture with routine healing (03/21/25) Physical Therapy Treatment Note PT-OP-A Visit Information Start: 02/09/25 15:48 Freq: Status: Active Protocol: Document 03/21/25 10:45 DCW (Rec: 03/21/25 11:30 DCW [id number]) Out-Patient Physical Therapy Visit Information Visit Information Visit Type Treatment Note Visit Start Time 10:45 Visit Stop Time 11:30 Visit Number 12 Number of CULTURE ROOM WORKER Visits 0 Evaluation Information Evaluation Date 02/09/25 PT-OP-B Current Condition Start: 02/09/25 15:48 Freq: Status: Active Protocol: Document 02/09/25 12:20 DCW (Rec: 02/09/25 16:00 DCW [id number]) Current Condition History of Current Condition Onset Date November, Current Complaints Right knee pain, stiffness s/p patellar fracture, tendon rupture History of Current Condition Pt is a 64 year old male presenting to skilled therapy six weeks s/p patellar tendon repair, eight weeks total s/p initial injury. Pt reports he was in [place] [place] in November, visiting his daughter . Attempted to go down the steps in front of her house, slipped on ice, and landed very hard directly on his right knee on a concrete slab. Pt reports that bottom 10% of his patella was broken off, resulting in a retraction of his quad tendon and most of his patella up his thigh. Notes he had a surgical repair , the avulsion was too small to save, so it was removed from the patella tendon, and then the remaining patella was smoothed out, and the patellar tendon was woven up through three holes drilled into the patella. Was locked into full extension for six weeks following surgery. Had a follow-up with the surgeon on 02/06/25, and his brace was unlocked from 0-50?. Notes he currently has no restrictions, the brace is locked at 50? just in case theres a fall. Currently using a LBQC for assistance ambulating. Pt reports surgeon wants his knee at 90? flexion two weeks from now, and 120? flexion in one month. Admits knee just feels really stiff, he is unable to flex far enough to feel much pain. PT-OP-C Subjective Start: 02/09/25 15:48 Freq: Status: Active Protocol: Document 03/21/25 10:45 DCW (Rec: 03/21/25 11:30 DCW [id number]) OP-PT Subjective Patient Comments Patient Comments I made a point to exercise it more, but it's more sore now. PT-OP-F Manual Assessment Start: 02/09/25 15:48 Freq: Status: Active Protocol: Document 02/09/25 12:20 DCW (Rec: 02/09/25 17:41 DCW [id number]) Manual Assessments Joint Mobility Assessment Joint Mobility Assessment Joint effusion along right knee, stiffness with passive flexion, very limited mobility PT-OP-J Posture/Palpation/Skin Start: 02/09/25 15:48 Freq: Status: Active Protocol: Document 02/17/25 10:47 SP (Rec: 02/17/25 16:04 SP [id number]) Skin Assessment Circumference Measurement 3 Location Right knee 6 cm superior to joint line Measurement (Centimeters) 50.1 Comments Left = 47.5 cm 2 Location Right knee joint line Measurement (Centimeters) 47.0 Comments Left = 44.8 cm 1 Location Right knee 6 cm inferior to joint line Measurement (Centimeters) 34.8 Comments Left = 43.1 cm PT-OP-K Range of Motion Start: 02/09/25 15:48 Freq: Status: Active Protocol: Document 02/09/25 12:20 DCW (Rec: 02/09/25 17:41 DCW [id number]) Knee Goniometric Range of Motion Knee Right Knee ROM WFL No Patient Position Supine Flexion Active (degrees) 29 Flexion Passive (degrees) 36 Extension Active (degrees) 0 Extension Passive (degrees) 0 Left Knee ROM WFL Yes Patient Position Supine Flexion Active (degrees) 130 Extension Active (degrees) 0 Knee ROM Limitations Knee ROM Limitations Soft Tissue Tightness,Bony Restriction,Muscle Tone,Pain, Swelling PT-OP-M Strength Start: 02/09/25 15:48 Freq: Status: Active Protocol: Document 02/09/25 12:20 DCW (Rec: 02/09/25 17:41 DCW [id number]) Knee Strength Knee Manual Muscle Testing Right Flexion (S2) 2- Poor- Extension (L3) 3 Fair Left Flexion (S2) 5 Normal Extension (L3) 5 Normal PT-OP-Q Treatments Start: 02/09/25 15:48 Freq: Status: Active Protocol: Document 03/21/25 10:45 DCW (Rec: 03/21/25 11:30 DCW [id number]) Cardio Equipment Recumbent Bicycle Duration (Minutes) 8 Resistance 3 Seat Position 9 (2 min) -> 8 (6 min) Other mostly forward motion Gym Equipment Shuttle Recovery Bilateral Squats Resistance 100# (four navy) Reps/Time Flexion 113? - Limited by machine Therapeutic Ball Ball Flexion Exercise Details Knee flexion /c foot on ball - strap overpressure Ball Size/Color Red - 55 cm Body Position Supine Comments Knee ROM 114? Therapeutic Exercises Sitting Exercises Hamstring Sitting Exercise Name Stool Racing - Hamstring curl/ Quad Extension Side bilateral Other Exercises Step-ups Other Exercise Name Step-ups Side right Equipment Used 4 step Comments Limited ability secondary to quad weakness Gait Training Gait Activity Front mirror Description gait phase R knee/hip flexion during swing through, push-off Device Used none Treatment Focus normalize gait phase Manual Therapy Treatment Joint Mobilizations Patella Joint R Patella Direction Inf/Sup Grade III Knee Joint R Knee Direction P<->A Grade III PT-OP-T Assessment and Plan Start: 02/09/25 15:48 Freq: Status: Active Protocol: Document 03/21/25 10:45 DCW (Rec: 03/21/25 11:30 DCW [id number]) Physical Therapy Assessment Impairments Impairments Activity Tolerance,Balance, Edema,Functional Activities, Functional Mobility,Gait, Integument,Pain,ROM,Soft Tissue Mobility,Strength,Tone Goals Three Impairment Right knee weakness with flexion (2-/5) and extension ( 3/5) Fdc Goal (LTG) Pt to demonstrate right knee MMT >4-/5 in both flexion and extension in order to return to previous functional mobility. LTG Duration 04/11/25 - Improving Two Impairment Significant limitations in right knee flexion (AROM 29?) Short Term Goal (STG) Pt to demonstrate improvement in right knee flexion to >90? STG Duration Met Fdc Goal (LTG) Pt to improve active right knee flexion to >120? in order to return to prior level of function LTG Duration 04/11/25 - Improving One Impairment Pt does not have an appropriate home exercise program Short Term Goal (STG) Pt to be independent and compliant with an appropriate HEP STG Duration Met Assessment Summary Assessment Pt continues to show good improvement, getting to ~115? much more easily and regularly . Discussed using strap at home to provide overpressure in flexion. Continue to focus on strengthening, ROM, and gait. Physical Therapy Plan Frequency and Duration Frequency of Treatment 2x/Week Plan of Care Start Date 02/09/25 Plan of Care End Date 04/11/25 Therapeutic Interventions Therapeutic Interventions Balance Training,Coordination Training,Gait Training,Home Exercise Program,Joint Mobilizations,Manual Therapy, Neuromuscular Re-education, Patient/Caregiver Education, Self-Care/Home Management,Soft Tissue Mobilization,Taping, Therapeutic Activities, Therapeutic Exercises Modalities Cold Pack/Ice Massage,Electric Stimulation,Hot Packs, Ultrasound Next Visit Focus/Plan Next Note Type Treatment Note Next Visit Plan Next: Check R knee mechanics gait. Add stretching (gastroc /soleus for DF support). POC: R Knee mobility, strengthening, flexibility, gait
--- NOTE | 2025-03-24 10:27 | PT.OTN ---
Current Diagnoses Pain in right knee (03/24/25) Stiffness of right knee, not elsewhere classified (03/24/25) Other abnormalities of gait and mobility (03/24/25) Displaced comminuted fracture of right patella, subsequent encounter for closed fracture with routine healing (03/24/25) Physical Therapy Treatment Note PT-OP-A Visit Information Start: 02/09/25 15:48 Freq: Status: Active Protocol: Document 03/24/25 09:46 DCW (Rec: 03/24/25 10:26 DCW [id number]) Out-Patient Physical Therapy Visit Information Visit Information Visit Type Treatment Note Visit Start Time 09:45 Visit Stop Time 10:30 Visit Number 13 Number of LEAD VULCANIZING OPERATOR Visits 0 Evaluation Information Evaluation Date 02/09/25 PT-OP-B Current Condition Start: 02/09/25 15:48 Freq: Status: Active Protocol: Document 02/09/25 12:20 DCW (Rec: 02/09/25 16:00 DCW [id number]) Current Condition History of Current Condition Onset Date November, Current Complaints Right knee pain, stiffness s/p patellar fracture, tendon rupture History of Current Condition Pt is a 64 year old male presenting to skilled therapy six weeks s/p patellar tendon repair, eight weeks total s/p initial injury. Pt reports he was in [facility] in November, visiting his daughter . Attempted to go down the steps in front of her house, slipped on ice, and landed very hard directly on his right knee on a concrete slab. Pt reports that bottom 10% of his patella was broken off, resulting in a retraction of his quad tendon and most of his patella up his thigh. Notes he had a surgical repair , the avulsion was too small to save, so it was removed from the patella tendon, and then the remaining patella was smoothed out, and the patellar tendon waswoven up through three hols drilled into the patella. Was locked into full extension for six weeks following surgery. Had a follow-up with the surgeon on 02/06/25, and his brace was unlocked from 0-50?. Notes he currently has no restrictions, the brace is locked at 50? just in case theres a fall. Currently using a LBQC for assistance ambulating. Pt reports surgeon wants his knee at 90? flexion two weeks from now, and 120? flexion in one month. Admits knee just feels really stiff, he is unable to flex far enough to feel much pain. PT-OP-C Subjective Start: 02/09/25 15:48 Freq: Status: Active Protocol: Document 03/24/25 09:46 DCW (Rec: 03/24/25 10:26 DCW [id number]) OP-PT Subjective Patient Comments Patient Comments I just lose all my knee range of motion if my hip is straight. PT-OP-F Manual Assessment Start: 02/09/25 15:48 Freq: Status: Active Protocol: Document 02/09/25 12:20 DCW (Rec: 02/09/25 17:41 DCW [id number]) Manual Assessments Joint Mobility Assessment Joint Mobility Assessment Joint effusion along right knee, stiffness with passive flexion, very limited mobility PT-OP-J Posture/Palpation/Skin Start: 02/09/25 15:48 Freq: Status: Active Protocol: Document 02/17/25 10:47 SP (Rec: 02/17/25 16:04 SP [id number]) Skin Assessment Circumference Measurement 3 Location Right knee 6 cm superior to joint line Measurement (Centimeters) 50.1 Comments Left = 47.5 cm 2 Location Right knee joint line Measurement (Centimeters) 47.0 Comments Left = 44.8 cm 1 Location Right knee 6 cm inferior to joint line Measurement (Centimeters) 34.8 Comments Left = 43.1 cm PT-OP-K Range of Motion Start: 02/09/25 15:48 Freq: Status: Active Protocol: Document 02/09/25 12:20 DCW (Rec: 02/09/25 17:41 DCW [id number]) Knee Goniometric Range of Motion Knee Right Knee ROM WFL No Patient Position Supine Flexion Active (degrees) 29 Flexion Passive (degrees) 36 Extension Active (degrees) 0 Extension Passive (degrees) 0 Left Knee ROM WFL Yes Patient Position Supine Flexion Active (degrees) 130 Extension Active (degrees) 0 Knee ROM Limitations Knee ROM Limitations Soft Tissue Tightness,Bony Restriction,Muscle Tone,Pain, Swelling PT-OP-M Strength Start: 02/09/25 15:48 Freq: Status: Active Protocol: Document 02/09/25 12:20 DCW (Rec: 02/09/25 17:41 DCW [id number]) Knee Strength Knee Manual Muscle Testing Right Flexion (S2) 2- Poor- Extension (L3) 3 Fair Left Flexion (S2) 5 Normal Extension (L3) 5 Normal PT-OP-Q Treatments Start: 02/09/25 15:48 Freq: Status: Active Protocol: Document 03/24/25 09:46 DCW (Rec: 03/24/25 10:26 DCW [id number]) Cardio Equipment Recumbent Bicycle Duration (Minutes) 8 Resistance 3 Seat Position 9 (1 min) -> 8 (7 min) Other mostly forward motion Gym Equipment Shuttle Recovery Bilateral Squats Resistance 100# (four navy) Reps/Time Flexion 119? - Limited by machine Therapeutic Exercises Supine Exercises Hip Flexors Supine Exercise Name Hip Flexor stretch Side right Manual Therapy Treatment Consent Patient gave verbal consent for manual Yes treatment Soft Tissue Mobilization R leg Body Location R Quad, hip flexors Mobilization Type Rolling Intensity/Depth Moderate Body Position Hooklying Comments Rolling Joint Mobilizations Patella Joint R Patella Direction Inf/Sup Grade III Knee Joint R Knee Direction P<->A Grade III PT-OP-T Assessment and Plan Start: 02/09/25 15:48 Freq: Status: Active Protocol: Document 03/24/25 09:46 DCW (Rec: 03/24/25 10:26 DCW [id number]) Physical Therapy Assessment Impairments Impairments Activity Tolerance,Balance, Edema,Functional Activities, Functional Mobility,Gait, Integument,Pain,ROM,Soft Tissue Mobility,Strength,Tone Goals Three Impairment Right knee weakness with flexion (2-/5) and extension ( 3/5) Coal Chute Worker Goal (LTG) Pt to demonstrate right knee MMT >4-/5 in both flexion and extension in order to return to previous functional mobility. LTG Duration 04/11/25 - Improving Two Impairment Significant limitations in right knee flexion (AROM 29?) Short Term Goal (STG) Pt to demonstrate improvement in right knee flexion to >90? STG Duration Met Custodial Goal (LTG) Pt to improve active right knee flexion to >120? in order to return to prior level of function LTG Duration 04/11/25 - Improving One Impairment Pt does not have an appropriate home exercise program Short Term Goal (STG) Pt to be independent and compliant with an appropriate HEP STG Duration Met Assessment Summary Assessment Pt flexion maxed out today at 119?, which is the most flexion he has yet had. Continues to do well overall, focus on ROM and strengthening . Physical Therapy Plan Frequency and Duration Frequency of Treatment 2x/Week Plan of Care Start Date 02/09/25 Plan of Care End Date 04/11/25 Therapeutic Interventions Therapeutic Interventions Balance Training,Coordination Training,Gait Training,Home Exercise Program,Joint Mobilizations,Manual Therapy, Neuromuscular Re-education, Patient/Caregiver Education, Self-Care/Home Management,Soft Tissue Mobilization,Taping, Therapeutic Activities, Therapeutic Exercises Modalities Cold Pack/Ice Massage,Electric Stimulation,Hot Packs, Ultrasound Next Visit Focus/Plan Next Note Type Treatment Note Next Visit Plan Next: Check R knee mechanics gait. Add stretching (gastroc /soleus for DF support). POC: R Knee mobility, strengthening, flexibility, gait
--- NOTE | 2025-03-28 10:35 | PT.OTN ---
Current Diagnoses Pain in right knee (03/28/25) Stiffness of right knee, not elsewhere classified (03/28/25) Other abnormalities of gait and mobility (03/28/25) Displaced comminuted fracture of right patella, subsequent encounter for closed fracture with routine healing (03/28/25) Physical Therapy Treatment Note PT-OP-A Visit Information Start: 02/09/25 15:48 Freq: Status: Active Protocol: Document 03/28/25 09:45 DCW (Rec: 03/28/25 10:35 DCW [id number]) Out-Patient Physical Therapy Visit Information Visit Information Visit Type Treatment Note Visit Start Time 09:45 Visit Stop Time 10:30 Visit Number 14 Number of ACADEMIC AFFAIRS VICE PRESIDENT Visits 0 Evaluation Information Evaluation Date 02/09/25 PT-OP-B Current Condition Start: 02/09/25 15:48 Freq: Status: Active Protocol: Document 02/09/25 12:20 DCW (Rec: 02/09/25 16:00 DCW [id number]) Current Condition History of Current Condition Onset Date November, Current Complaints Right knee pain, stiffness s/p patellar fracture, tendon rupture History of Current Condition Pt is a 64 year old male presenting to skilled therapy six weeks s/p patellar tendon repair, eight weeks total s/p initial injury. Pt reports he was in [facility] in November, visiting his daughter . Attempted to go down the steps in front of her house, slipped on ice, and landed very hard directly on his right knee on a concrete slab. Pt reports that bottom 10% of his patella was broken off, resulting in a retraction of his quad tendon and most of his patella up his thigh. Notes he had a surgical repair , the avulsion was too small to save, so it was removed from the patella tendon, and then the remaining patella was smoothed out, and the patellar tendon waswoven up through three hols drilled into the patella. Was locked into full extension for six weeks following surgery. Had a follow-up with the surgeon on 02/06/25, and his brace was unlocked from 0-50?. Notes he currently has no restrictions, the brace is locked at 50? just in case theres a fall. Currently using a LBQC for assistance ambulating. Pt reports surgeon wants his knee at 90? flexion two weeks from now, and 120? flexion in one month. Admits knee just feels really stiff, he is unable to flex far enough to feel much pain. PT-OP-C Subjective Start: 02/09/25 15:48 Freq: Status: Active Protocol: Document 03/28/25 09:45 DCW (Rec: 03/28/25 10:35 DCW [id number]) OP-PT Subjective Patient Comments Patient Comments Pt reports he was able to drive a little bit yesterday for the first time in 3.5 months. PT-OP-F Manual Assessment Start: 02/09/25 15:48 Freq: Status: Active Protocol: Document 02/09/25 12:20 DCW (Rec: 02/09/25 17:41 DCW [id number]) Manual Assessments Joint Mobility Assessment Joint Mobility Assessment Joint effusion along right knee, stiffness with passive flexion, very limited mobility PT-OP-J Posture/Palpation/Skin Start: 02/09/25 15:48 Freq: Status: Active Protocol: Document 02/17/25 10:47 SP (Rec: 02/17/25 16:04 SP [id number]) Skin Assessment Circumference Measurement 3 Location Right knee 6 cm superior to joint line Measurement (Centimeters) 50.1 Comments Left = 47.5 cm 2 Location Right knee joint line Measurement (Centimeters) 47.0 Comments Left = 44.8 cm 1 Location Right knee 6 cm inferior to joint line Measurement (Centimeters) 34.8 Comments Left = 43.1 cm PT-OP-K Range of Motion Start: 02/09/25 15:48 Freq: Status: Active Protocol: Document 02/09/25 12:20 DCW (Rec: 02/09/25 17:41 DCW [id number]) Knee Goniometric Range of Motion Knee Right Knee ROM WFL No Patient Position Supine Flexion Active (degrees) 29 Flexion Passive (degrees) 36 Extension Active (degrees) 0 Extension Passive (degrees) 0 Left Knee ROM WFL Yes Patient Position Supine Flexion Active (degrees) 130 Extension Active (degrees) 0 Knee ROM Limitations Knee ROM Limitations Soft Tissue Tightness,Bony Restriction,Muscle Tone,Pain, Swelling PT-OP-M Strength Start: 02/09/25 15:48 Freq: Status: Active Protocol: Document 02/09/25 12:20 DCW (Rec: 02/09/25 17:41 DCW [id number]) Knee Strength Knee Manual Muscle Testing Right Flexion (S2) 2- Poor- Extension (L3) 3 Fair Left Flexion (S2) 5 Normal Extension (L3) 5 Normal PT-OP-Q Treatments Start: 02/09/25 15:48 Freq: Status: Active Protocol: Document 03/28/25 09:45 DCW (Rec: 03/28/25 10:35 DCW [id number]) Cardio Equipment Recumbent Bicycle Duration (Minutes) 8 Resistance 3 Seat Position 8 (4 min)->7 (4 min) Other mostly forward motion Gym Equipment Shuttle Recovery Bilateral Squats Resistance 100# (four [employer]) Reps/Time Flexion 119? Therapeutic Exercises Sitting Exercises Hamstring Sitting Exercise Name Stool Racing - Hamstring curl/ Quad Extension Side bilateral Other Exercises Step-ups Other Exercise Name Step-downs Side right Equipment Used 4 step->5 step Comments Limited ability secondary to quad weakness Manual Therapy Treatment Consent Patient gave verbal consent for manual Yes treatment Joint Mobilizations Patella Joint R Patella Direction Inf/Sup Grade III Knee Joint R Knee Direction P<->A Grade III PT-OP-T Assessment and Plan Start: 02/09/25 15:48 Freq: Status: Active Protocol: Document 03/28/25 09:45 DCW (Rec: 03/28/25 10:35 DCW [id number]) Physical Therapy Assessment Impairments Impairments Activity Tolerance,Balance, Edema,Functional Activities, Functional Mobility,Gait, Integument,Pain,ROM,Soft Tissue Mobility,Strength,Tone Goals Three Impairment Right knee weakness with flexion (2-/5) and extension ( 3/5) Debeaker Goal (LTG) Pt to demonstrate right knee MMT >4-/5 in both flexion and extension in order to return to previous functional mobility. LTG Duration 04/11/25 - Improving Two Impairment Significant limitations in right knee flexion (AROM 29?) Short Term Goal (STG) Pt to demonstrate improvement in right knee flexion to >90? STG Duration Met Debeaker Goal (LTG) Pt to improve active right knee flexion to >120? in order to return to prior level of function LTG Duration 04/11/25 - Improving One Impairment Pt does not have an appropriate home exercise program Short Term Goal (STG) Pt to be independent and compliant with an appropriate HEP STG Duration Met Assessment Summary Assessment Pt continues to do well, working more on increasing strength vs just focusing on ROM. Continue to address gait and mobility. Physical Therapy Plan Frequency and Duration Frequency of Treatment 2x/Week Plan of Care Start Date 02/09/25 Plan of Care End Date 04/11/25 Therapeutic Interventions Therapeutic Interventions Balance Training,Coordination Training,Gait Training,Home Exercise Program,Joint Mobilizations,Manual Therapy, Neuromuscular Re-education, Patient/Caregiver Education, Self-Care/Home Management,Soft Tissue Mobilization,Taping, Therapeutic Activities, Therapeutic Exercises Modalities Cold Pack/Ice Massage,Electric Stimulation,Hot Packs, Ultrasound Next Visit Focus/Plan Next Note Type Treatment Note Next Visit Plan Next: Check R knee mechanics gait. Add stretching (gastroc /soleus for DF support). POC: R Knee mobility, strengthening, flexibility, gait
--- NOTE | 2025-03-31 11:32 | PT.OTN ---
Current Diagnoses Pain in right knee (03/31/25) Stiffness of right knee, not elsewhere classified (03/31/25) Other abnormalities of gait and mobility (03/31/25) Displaced comminuted fracture of right patella, subsequent encounter for closed fracture with routine healing (03/31/25) Physical Therapy Treatment Note PT-OP-A Visit Information Start: 02/09/25 15:48 Freq: Status: Active Protocol: Document 03/31/25 10:48 SP (Rec: 03/31/25 12:33 SP [id number]) Out-Patient Physical Therapy Visit Information Visit Information Visit Type Treatment Note Visit Note SPTA Kelly observed tx provided by KATARINA Haji with permission of pt. Visit Start Time 10:48 Visit Stop Time 11:32 Visit Number 15 Number of TRADE MARK EXAMINER Visits 1 PT-OP-B Current Condition Start: 02/09/25 15:48 Freq: Status: Active Protocol: Document 02/09/25 12:20 DCW (Rec: 02/09/25 16:00 DCW [id number]) Current Condition History of Current Condition Onset Date November, Current Complaints Right knee pain, stiffness s/p patellar fracture, tendon rupture History of Current Condition Pt is a 64 year old male presenting to skilled therapy six weeks s/p patellar tendon repair, eight weeks total s/p initial injury. Pt reports he was in [facility] in November, visiting his daughter . Attempted to go down the steps in front of her house, slipped on ice, and landed very hard directly on his right knee on a concrete slab. Pt reports that bottom 10% of his patella was broken off, resulting in a retraction of his quad tendon and most of his patella up his thigh. Notes he had a surgical repair , the avulsion was too small to save, so it was removed from the patella tendon, and then the remaining patella was smoothed out, and the patellar tendon waswoven up through three hols drilled into the patella. Was locked into full extension for six weeks following surgery. Had a follow-up with the surgeon on 02/06/25, and his brace was unlocked from 0-50?. Notes he currently has no restrictions, the brace is locked at 50? just in case theres a fall. Currently using a LBQC for assistance ambulating. Pt reports surgeon wants his knee at 90? flexion two weeks from now, and 120? flexion in one month. Admits knee just feels really stiff, he is unable to flex far enough to feel much pain. PT-OP-C Subjective Start: 02/09/25 15:48 Freq: Status: Active Protocol: Document 03/31/25 10:48 SP (Rec: 03/31/25 12:33 SP [id number]) OP-PT Subjective Patient Comments Patient Comments Pt reported R quad really tight, very hard some pain in R knee joint, doing Charly Stretch, wants to review. PT-OP-F Manual Assessment Start: 02/09/25 15:48 Freq: Status: Active Protocol: Document 02/09/25 12:20 DCW (Rec: 02/09/25 17:41 DCW [id number]) Manual Assessments Joint Mobility Assessment Joint Mobility Assessment Joint effusion along right knee, stiffness with passive flexion, very limited mobility PT-OP-J Posture/Palpation/Skin Start: 02/09/25 15:48 Freq: Status: Active Protocol: Document 02/17/25 10:47 SP (Rec: 02/17/25 16:04 SP [id number]) Skin Assessment Circumference Measurement 3 Location Right knee 6 cm superior to joint line Measurement (Centimeters) 50.1 Comments Left = 47.5 cm 2 Location Right knee joint line Measurement (Centimeters) 47.0 Comments Left = 44.8 cm 1 Location Right knee 6 cm inferior to joint line Measurement (Centimeters) 34.8 Comments Left = 43.1 cm PT-OP-K Range of Motion Start: 02/09/25 15:48 Freq: Status: Active Protocol: Document 02/09/25 12:20 DCW (Rec: 02/09/25 17:41 DCW [id number]) Knee Goniometric Range of Motion Knee Right Knee ROM WFL No Patient Position Supine Flexion Active (degrees) 29 Flexion Passive (degrees) 36 Extension Active (degrees) 0 Extension Passive (degrees) 0 Left Knee ROM WFL Yes Patient Position Supine Flexion Active (degrees) 130 Extension Active (degrees) 0 Knee ROM Limitations Knee ROM Limitations Soft Tissue Tightness,Bony Restriction,Muscle Tone,Pain, Swelling PT-OP-M Strength Start: 02/09/25 15:48 Freq: Status: Active Protocol: Document 02/09/25 12:20 DCW (Rec: 02/09/25 17:41 DCW [id number]) Knee Strength Knee Manual Muscle Testing Right Flexion (S2) 2- Poor- Extension (L3) 3 Fair Left Flexion (S2) 5 Normal Extension (L3) 5 Normal PT-OP-Q Treatments Start: 02/09/25 15:48 Freq: Status: Active Protocol: Document 03/31/25 10:48 SP (Rec: 03/31/25 12:33 SP [id number]) Gym Equipment Shuttle Recovery Bilateral Squats Details Flexion 125? (post manual) Resistance 100# (four navy) Reps/Time 10 reps total Therapeutic Exercises Supine Exercises Hip Flexors Supine Exercise Name Hip Flexor stretch- Modified to Charly Stretch Side right Comments thigh supported then thigh draping off table Standing Exercises Stationary lunge Standing Exercise Name trialed in PT- mini lunge Side right Equipment Used rail and chair arm at side support Reps/Minutes 5 reps R ft fwd, to challengeing R ft back position Comments cued mini lunge, BUE support, bend back L knee allow R knee flex Rglut driv Knee and ankle mobility Standing Exercise Name Reviewed a self HEP Resistance R foot on chair/hand on chair back, rolled towel behind knee Reps/Minutes AAROM into flexion Comments improved range and decreased jt tension more quad and calf stretch Gait Training Gait Activity Front mirror Description gait phase R knee/hip flexion during swing through, push-off Device Used none Treatment Focus normalize gait phase Manual Therapy Treatment Consent Patient gave verbal consent for manual Yes treatment Soft Tissue Mobilization R leg Body Location R RF, VL Mobilization Type Myofascial Release,Rolling, Sustained Pressure,Other Intensity/Depth Moderate Body Position Hooklying Comments Rolling Joint Mobilizations Patella Joint R Patella Direction medial glide then added medial tilt posteriorly Grade II Knee Joint R Knee Direction P<->A Grade III Comments Hooklying: P<>A Tib-Femoral Prone: tibia inferior glide with strap support into flexion- good quad stretch response (rolled towel under distal thigh) PT-OP-T Assessment and Plan Start: 02/09/25 15:48 Freq: Status: Active Protocol: Document 03/31/25 10:48 SP (Rec: 03/31/25 12:33 SP [id number]) Physical Therapy Assessment Goals Three Impairment Right knee weakness with flexion (2-/5) and extension ( 3/5) Plaster Caster Goal (LTG) Pt to demonstrate right knee MMT >4-/5 in both flexion and extension in order to return to previous functional mobility. LTG Duration 04/11/25 - Improving Two Impairment Significant limitations in right knee flexion (AROM 29?) Short Term Goal (STG) Pt to demonstrate improvement in right knee flexion to >90? STG Duration Met Plaster Caster Goal (LTG) Pt to improve active right knee flexion to >120? in order to return to prior level of function LTG Duration 04/11/25 - Improving One Impairment Pt does not have an appropriate home exercise program Short Term Goal (STG) Pt to be independent and compliant with an appropriate HEP STG Duration Met Assessment Summary Assessment Pt good feedback response to manual with emphasis on R knee flexion in prone with provided tibfemoral glide and MF superior glide to quad during hooklying in Charly stretch positioning decreased quad tension and provide increased PROM 119 deg prone and AAROM on shuttle recovery 125 deg. Cues and continued education on gait mechanical engineering draftsperson R knee and hip flexion during RLE advancement with elongated posture and TA needed. Cued light SPC support in LUE needed for self postural correction vs leaning into SPC . Pt reports so pleased less R knee jt pinching limiting flexion. Good feedback R quad tiring during mini lunge, cued glut drive return to stand with BUE support on rail /R chair arm. Physical Therapy Plan Frequency and Duration Frequency of Treatment 2x/Week Plan of Care Start Date 02/09/25 Plan of Care End Date 04/11/25 Therapeutic Interventions Therapeutic Interventions Balance Training,Coordination Training,Gait Training,Home Exercise Program,Joint Mobilizations,Manual Therapy, Neuromuscular Re-education, Patient/Caregiver Education, Self-Care/Home Management,Soft Tissue Mobilization,Taping, Therapeutic Activities, Therapeutic Exercises Modalities Cold Pack/Ice Massage,Electric Stimulation,Hot Packs, Ultrasound Next Visit Focus/Plan Next Note Type Treatment Note Next Visit Plan Next: Recheck knee/ankle mobiltiy, mini lunge for add home HEP. Check R knee mechanics gait. Continue stretching (gastroc/ soleus for DF support). POC: R Knee mobility, strengthening, flexibility, gait
--- NOTE | 2025-04-05 14:54 | PT.OTN ---
Current Diagnoses Pain in right knee (04/05/25) Stiffness of right knee, not elsewhere classified (04/05/25) Other abnormalities of gait and mobility (04/05/25) Displaced comminuted fracture of right patella, subsequent encounter for closed fracture with routine healing (04/05/25) Physical Therapy Treatment Note PT-OP-A Visit Information Start: 02/09/25 15:48 Freq: Status: Active Protocol: Document 04/05/25 13:50 DCW (Rec: 04/05/25 14:48 DCW [id number]) Out-Patient Physical Therapy Visit Information Visit Information Visit Type Progress Note Visit Start Time 13:50 Visit Stop Time 14:35 Visit Number 16 Number of PIPE STEM SAWYER Visits 0 Evaluation Information Evaluation Date 02/09/25 PT-OP-B Current Condition Start: 02/09/25 15:48 Freq: Status: Active Protocol: Document 02/09/25 12:20 DCW (Rec: 02/09/25 16:00 DCW [id number]) Current Condition History of Current Condition Onset Date November, Current Complaints Right knee pain, stiffness s/p patellar fracture, tendon rupture History of Current Condition Pt is a 64 year old male presenting to skilled therapy six weeks s/p patellar tendon repair, eight weeks total s/p initial injury. Pt reports he was in [facility] in November, visiting his daughter . Attempted to go down the steps in front of her house, slipped on ice, and landed very hard directly on his right knee on a concrete slab. Pt reports that bottom 10% of his patella was broken off, resulting in a retraction of his quad tendon and most of his patella up his thigh. Notes he had a surgical repair , the avulsion was too small to save, so it was removed from the patella tendon, and then the remaining patella was smoothed out, and the patellar tendon waswoven up through three hols drilled into the patella. Was locked into full extension for six weeks following surgery. Had a follow-up with the surgeon on 02/06/25, and his brace was unlocked from 0-50?. Notes he currently has no restrictions, the brace is locked at 50? just in case theres a fall. Currently using a LBQC for assistance ambulating. Pt reports surgeon wants his knee at 90? flexion two weeks from now, and 120? flexion in one month. Admits knee just feels really stiff, he is unable to flex far enough to feel much pain. PT-OP-C Subjective Start: 02/09/25 15:48 Freq: Status: Active Protocol: Document 04/05/25 13:50 DCW (Rec: 04/05/25 14:48 DCW [id number]) OP-PT Subjective Patient Comments Patient Comments Pt reports his knee has been feeling better, his tight quad has been feeling like it loosened up. PT-OP-F Manual Assessment Start: 02/09/25 15:48 Freq: Status: Active Protocol: Document 04/05/25 13:50 DCW (Rec: 04/05/25 14:53 DCW [id number]) Manual Assessments Joint Mobility Assessment Joint Mobility Assessment Substantial improvement with mobility of left knee joint. Mild limitations with mobility secondary to quad tone and decreased patella mobility PT-OP-J Posture/Palpation/Skin Start: 02/09/25 15:48 Freq: Status: Active Protocol: Document 02/17/25 10:47 SP (Rec: 02/17/25 16:04 SP [id number]) Skin Assessment Circumference Measurement 3 Location Right knee 6 cm superior to joint line Measurement (Centimeters) 50.1 Comments Left = 47.5 cm 2 Location Right knee joint line Measurement (Centimeters) 47.0 Comments Left = 44.8 cm 1 Location Right knee 6 cm inferior to joint line Measurement (Centimeters) 34.8 Comments Left = 43.1 cm PT-OP-K Range of Motion Start: 02/09/25 15:48 Freq: Status: Active Protocol: Document 04/05/25 13:50 DCW (Rec: 04/05/25 14:53 DCW [id number]) Knee Goniometric Range of Motion Knee Right Patient Position Supine Flexion Active (degrees) 119 Flexion Passive (degrees) 127 Extension Active (degrees) 0 Extension Passive (degrees) 0 Left Knee ROM WFL Yes Patient Position Supine Flexion Active (degrees) 130 Extension Active (degrees) 0 PT-OP-M Strength Start: 02/09/25 15:48 Freq: Status: Active Protocol: Document 04/05/25 13:50 DCW (Rec: 04/05/25 14:54 DCW [id number]) Knee Strength Knee Manual Muscle Testing Right Flexion (S2) 4 Good Extension (L3) 3+ Fair+ Left Flexion (S2) 5 Normal Extension (L3) 5 Normal PT-OP-Q Treatments Start: 02/09/25 15:48 Freq: Status: Active Protocol: Document 04/05/25 13:50 DCW (Rec: 04/05/25 14:48 DCW [id number]) Cardio Equipment Recumbent Bicycle Duration (Minutes) 8 Resistance 5 Seat Position 7 (3 min) ->6 (5 min) Gym Equipment Shuttle Recovery Bilateral Squats Details Flexion 127? (post manual) Resistance 100# (four navy) Manual Therapy Treatment Joint Mobilizations Patella Joint R Patella Direction Inf/Sup, Med Grade III Knee Joint R Knee Direction P<->A Grade III Comments Prone: tibia inferior glide with strap support into flexion- good quad stretch response (rolled towel under distal thigh) PT-OP-T Assessment and Plan Start: 02/09/25 15:48 Freq: Status: Active Protocol: Document 04/05/25 13:50 DCW (Rec: 04/05/25 14:48 DCW [id number]) Physical Therapy Assessment Impairments Impairments Activity Tolerance,Balance, Edema,Functional Activities, Functional Mobility,Gait, Integument,Pain,ROM,Soft Tissue Mobility,Strength,Tone Goals Three Impairment Right knee weakness with flexion (2-/5) and extension ( 3/5) Solar Electric Practitioner Goal (LTG) Pt to demonstrate right knee MMT >4-/5 in both flexion and extension in order to return to previous functional mobility. 04/05/25 - Improving, flexion 4/ 5, extension 3+/5 LTG Duration 06/05/25 Two Impairment Significant limitations in right knee flexion (AROM 29?) Short Term Goal (STG) Pt to demonstrate improvement in right knee flexion to >90? STG Duration Met Snf Goal (LTG) Pt to improve active right knee flexion to >120? in order to return to prior level of function 04/05/25 - AROM 119?, PROM 127? LTG Duration 06/05/25 One Impairment Pt does not have an appropriate home exercise program Short Term Goal (STG) Pt to be independent and compliant with an appropriate HEP STG Duration Met Assessment Summary Assessment Pt showing great overall improvement. AROM measured today at 119?, PROM to 127? when on leg press. Pt responds very well to prone knee mobs with strap. Continue to focus on knee ROM, functional mobility, and LE strengthening . Physical Therapy Plan Frequency and Duration Frequency of Treatment 2x/Week Plan of Care Start Date 04/05/25 Plan of Care End Date 06/05/25 Therapeutic Interventions Therapeutic Interventions Balance Training,Coordination Training,Gait Training,Home Exercise Program,Joint Mobilizations,Manual Therapy, Neuromuscular Re-education, Patient/Caregiver Education, Self-Care/Home Management,Soft Tissue Mobilization,Taping, Therapeutic Activities, Therapeutic Exercises Modalities Cold Pack/Ice Massage,Electric Stimulation,Hot Packs, Ultrasound Next Visit Focus/Plan Next Note Type Treatment Note Next Visit Plan Next: Recheck knee/ankle mobility, mini lunge for add home HEP. Check R knee mechanics gait. Continue stretching (gastroc/ soleus for DF support). POC: R Knee mobility, strengthening, flexibility, gait
--- NOTE | 2025-04-05 14:55 | PT.OPPOC ---
Physical, Occupational & Speech Therapy At [facility] Current Diagnoses Pain in right knee (04/05/25) Stiffness of right knee, not elsewhere classified (04/05/25) Other abnormalities of gait and mobility (04/05/25) Displaced comminuted fracture of right patella, subsequent encounter for closed fracture with routine healing (04/05/25) Visit Care Team Role Provider Type Susu Kemp PA-C Referring Provider Non-Staff Specialty: Orthopedic Surgery Address: [address] [place] [address], [place], [address] Email: David Lawrence DO Family Provider Physician Primary Care Provider Specialty: Family Practice Address: [address] [place] [address], [id number] Email: Alan Riley DO Attending Provider Non-Staff Specialty: Orthopedics Address: [address] [place], [address] Email: Plan Of Care PT-OP-B Current Condition Start: 02/09/25 15:48 Freq: Status: Active Protocol: Document 02/09/25 12:20 DCW (Rec: 02/09/25 16:00 DCW [id number]) Current Condition History of Current Condition Onset Date November, Current Complaints Right knee pain, stiffness s/p patellar fracture, tendon rupture History of Current Condition Pt is a 64 year old male presenting to skilled therapy six weeks s/p patellar tendon repair, eight weeks total s/p initial injury. Pt reports he was in [facility] in November, visiting his daughter . Attempted to go down the steps in front of her house, slipped on ice, and landed very hard directly on his right knee on a concrete slab. Pt reports that bottom 10% of his patella was broken off, resulting in a retraction of his quad tendon and most of his patella up his thigh. Notes he had a surgical repair , the avulsion was too small to save, so it was removed from the patella tendon, and then the remaining patella was smoothed out, and the patellar tendon waswoven up through three hols drilled into the patella. Was locked into full extension for six weeks following surgery. Had a follow-up with the surgeon on 02/06/25, and his brace was unlocked from 0-50?. Notes he currently has no restrictions, the brace is locked at 50? just in case theres a fall. Currently using a LBQC for assistance ambulating. Pt reports surgeon wants his knee at 90? flexion two weeks from now, and 120? flexion in one month. Admits knee just feels really stiff, he is unable to flex far enough to feel much pain. PT-OP-T Assessment and Plan Start: 02/09/25 15:48 Freq: Status: Active Protocol: Document 04/05/25 13:50 DCW (Rec: 04/05/25 14:48 DCW [id number]) Physical Therapy Assessment Impairments Impairments Activity Tolerance,Balance, Edema,Functional Activities, Functional Mobility,Gait, Integument,Pain,ROM,Soft Tissue Mobility,Strength,Tone Goals Three Impairment Right knee weakness with flexion (2-/5) and extension ( 3/5) Float Operator Goal (LTG) Pt to demonstrate right knee MMT >4-/5 in both flexion and extension in order to return to previous functional mobility. 04/05/25 - Improving, flexion 4/ 5, extension 3+/5 LTG Duration 06/05/25 Two Impairment Significant limitations in right knee flexion (AROM 29?) Short Term Goal (STG) Pt to demonstrate improvement in right knee flexion to >90? STG Duration Met Float Operator Goal (LTG) Pt to improve active right knee flexion to >120? in order to return to prior level of function 04/05/25 - AROM 119?, PROM 127? LTG Duration 06/05/25 One Impairment Pt does not have an appropriate home exercise program Short Term Goal (STG) Pt to be independent and compliant with an appropriate HEP STG Duration Met Assessment Summary Assessment Pt showing great overall improvement. AROM measured today at 119?, PROM to 127? when on leg press. Pt responds very well to prone knee mobs with strap. Continue to focus on knee ROM, functional mobility, and LE strengthening . Physical Therapy Plan Frequency and Duration Frequency of Treatment 2x/Week Plan of Care Start Date 04/05/25 Plan of Care End Date 06/05/25 Therapeutic Interventions Therapeutic Interventions Balance Training,Coordination Training,Gait Training,Home Exercise Program,Joint Mobilizations,Manual Therapy, Neuromuscular Re-education, Patient/Caregiver Education, Self-Care/Home Management,Soft Tissue Mobilization,Taping, Therapeutic Activities, Therapeutic Exercises Modalities Cold Pack/Ice Massage,Electric Stimulation,Hot Packs, Ultrasound Next Visit Focus/Plan Next Note Type Treatment Note Next Visit Plan Next: Recheck knee/ankle mobiltiy, mini lunge for add home HEP. Check R knee mechanics gait. Continue stretching (gastroc/ soleus for DF support). POC: R Knee mobility, strengthening, flexibility, gait Plan of Care Dates Plan of Care Start Date 04/05/25 Plan of Care End Date 06/05/25 Electronically Signed by: Abraham Choudhury, PT 04/05/25 1239 If you are in agreement with this Plan of Care, please return a signed and dated copy. I have reviewed this Plan of Care and certify that the skilled therapy services above are required to meet the patient?s needs. Physician Signature Date Printed Name and Credentials Clinical Instructor Signature Printed Name and Credentials
--- NOTE | 2025-04-14 11:33 | PT.OTN ---
Current Diagnoses Pain in right knee (04/14/25) Stiffness of right knee, not elsewhere classified (04/14/25) Other abnormalities of gait and mobility (04/14/25) Displaced comminuted fracture of right patella, subsequent encounter for closed fracture with routine healing (04/14/25) Physical Therapy Treatment Note PT-OP-A Visit Information Start: 02/09/25 15:48 Freq: Status: Active Protocol: Document 04/14/25 10:47 SP (Rec: 04/14/25 12:33 SP [id number]) Out-Patient Physical Therapy Visit Information Visit Information Visit Type Treatment Note Visit Start Time 10:47 Visit Stop Time 11:33 Visit Number 17 Number of FREELANCE COPYWRITER Visits 1 PT-OP-B Current Condition Start: 02/09/25 15:48 Freq: Status: Active Protocol: Document 02/09/25 12:20 DCW (Rec: 02/09/25 16:00 DCW [id number]) Current Condition History of Current Condition Onset Date November, Current Complaints Right knee pain, stiffness s/p patellar fracture, tendon rupture History of Current Condition Pt is a 64 year old male presenting to skilled therapy six weeks s/p patellar tendon repair, eight weeks total s/p initial injury. Pt reports he was in [facility] in November, visiting his daughter . Attempted to go down the steps in front of her house, slipped on ice, and landed very hard directly on his right knee on a concrete slab. Pt reports that bottom 10% of his patella was broken off, resulting in a retraction of his quad tendon and most of his patella up his thigh. Notes he had a surgical repair , the avulsion was too small to save, so it was removed from the patella tendon, and then the remaining patella was smoothed out, and the patellar tendon waswoven up through three hols drilled into the patella. Was locked into full extension for six weeks following surgery. Had a follow-up with the surgeon on 02/06/25, and his brace was unlocked from 0-50?. Notes he currently has no restrictions, the brace is locked at 50? just in case theres a fall. Currently using a LBQC for assistance ambulating. Pt reports surgeon wants his knee at 90? flexion two weeks from now, and 120? flexion in one month. Admits knee just feels really stiff, he is unable to flex far enough to feel much pain. PT-OP-C Subjective Start: 02/09/25 15:48 Freq: Status: Active Protocol: Document 04/14/25 10:47 SP (Rec: 04/14/25 12:33 SP [id number]) OP-PT Subjective Patient Comments Patient Comments Pt reports he was able to trial quadruped edge of bed with feet off table, good gentle stretch, can't sit all way back with arms out front. PT-OP-F Manual Assessment Start: 02/09/25 15:48 Freq: Status: Active Protocol: Document 04/05/25 13:50 DCW (Rec: 04/05/25 14:53 DCW [id number]) Manual Assessments Joint Mobility Assessment Joint Mobility Assessment Substantial improvement with mobility of left knee joint. Mild limitations with mobility secondary to quad tone and decreased patella mobility PT-OP-J Posture/Palpation/Skin Start: 02/09/25 15:48 Freq: Status: Active Protocol: Document 02/17/25 10:47 SP (Rec: 02/17/25 16:04 SP [id number]) Skin Assessment Circumference Measurement 3 Location Right knee 6 cm superior to joint line Measurement (Centimeters) 50.1 Comments Left = 47.5 cm 2 Location Right knee joint line Measurement (Centimeters) 47.0 Comments Left = 44.8 cm 1 Location Right knee 6 cm inferior to joint line Measurement (Centimeters) 34.8 Comments Left = 43.1 cm PT-OP-K Range of Motion Start: 02/09/25 15:48 Freq: Status: Active Protocol: Document 04/05/25 13:50 DCW (Rec: 04/05/25 14:53 DCW [id number]) Knee Goniometric Range of Motion Knee Right Patient Position Supine Flexion Active (degrees) 119 Flexion Passive (degrees) 127 Extension Active (degrees) 0 Extension Passive (degrees) 0 Left Knee ROM WFL Yes Patient Position Supine Flexion Active (degrees) 130 Extension Active (degrees) 0 PT-OP-M Strength Start: 02/09/25 15:48 Freq: Status: Active Protocol: Document 04/05/25 13:50 DCW (Rec: 04/05/25 14:54 DCW [id number]) Knee Strength Knee Manual Muscle Testing Right Flexion (S2) 4 Good Extension (L3) 3+ Fair+ Left Flexion (S2) 5 Normal Extension (L3) 5 Normal PT-OP-Q Treatments Start: 02/09/25 15:48 Freq: Status: Active Protocol: Document 04/14/25 10:47 SP (Rec: 04/14/25 12:33 SP [id number]) Cardio Equipment Recumbent Bicycle Duration (Minutes) 8 Resistance 5 Seat Position 7 (2 min) ->5 (6 min- little backward)-> 4 (2 min- soft tissue calf limit) Other mainly forward, good over knee stretch midline self correction Gym Equipment Shuttle Recovery Bilateral Squats Details Flexion 132? Resistance 100# (four navy)- wedge cushion 4 from assembler hydraulic backhoe platform Reps/Time several reps, unlocked Therapeutic Exercises Sitting Exercises LAQ Sitting Exercise Name initiated in PT- sit on plinth thighs fully supported BLE dangle Side right Resistance AROM Equipment Used therapist hand> top stool target raised to max height Reps/Minutes 5 reps (end tx) Comments cues for TKE, target helped self effort to range can almost full TKE Therapeutic Activity Therapeutic Activity LE ext Step Mgt Mechanics Name PRN rail- ascend gait mechanics: R LE step over ravindra to 8 step then back Reps/Minutes several reps Comments 4# leg wt- hip and knee flexion over ravindra with TKE to contact step then flexion return to start for Step over items Name rail PRN- fwd and lateral Reps/Minutes several reps Comments 2 step then added over ravindra gait phase step down Name PRN rail- Desc gait mechanics: RLE on 2 step, LLE fwd over 2>4>10 step Reps/Minutes several reps Comments 4 # leg wt BLE, instruction L LE knee and hip flexion over step various heights/width, to allow RLE eccentric flex shift onto LLE fwd, then wt shift back onto RLE heel drive cuing TKE quad engagement - midrange strengthening to support stair mgt progression. PT-OP-T Assessment and Plan Start: 02/09/25 15:48 Freq: Status: Active Protocol: Document 04/14/25 10:47 SP (Rec: 04/14/25 12:33 SP [id number]) Physical Therapy Assessment Goals Three Impairment Right knee weakness with flexion (2-/5) and extension ( 3/5) Penitentiary Goal (LTG) Pt to demonstrate right knee MMT >4-/5 in both flexion and extension in order to return to previous functional mobility. 04/05/25 - Improving, flexion 4/ 5, extension 3+/5 LTG Duration 06/05/25 Two Impairment Significant limitations in right knee flexion (AROM 29?) Short Term Goal (STG) Pt to demonstrate improvement in right knee flexion to >90? STG Duration Met Penitentiary Goal (LTG) Pt to improve active right knee flexion to >120? in order to return to prior level of function 04/05/25 - AROM 119?, PROM 127? LTG Duration 06/05/25 One Impairment Pt does not have an appropriate home exercise program Short Term Goal (STG) Pt to be independent and compliant with an appropriate HEP STG Duration Met Assessment Summary Assessment Pt improved RLE eccentric flexion small range step down fwd and wt shift into WB return TKE extension, set up for midrange strengthening effort with resistance ankle weights. Incorporated R knee and hip flexion under resistance for functional strengthening to lift leg over items as step/ ravindra during tx but carryover trail walking over roots or items on beach to get to waterfront. Pt improved with initiated 2 step down and return today and good effort lifting leg over 10 step PRN support. Added LAQ AROM can perform at this time and target to kick to but not lock out knee to support stepping up eccentric controlled extension. Physical Therapy Plan Frequency and Duration Frequency of Treatment 2x/Week Plan of Care Start Date 04/05/25 Plan of Care End Date 06/05/25 Therapeutic Interventions Therapeutic Interventions Balance Training,Coordination Training,Gait Training,Home Exercise Program,Joint Mobilizations,Manual Therapy, Neuromuscular Re-education, Patient/Caregiver Education, Self-Care/Home Management,Soft Tissue Mobilization,Taping, Therapeutic Activities, Therapeutic Exercises Modalities Cold Pack/Ice Massage,Electric Stimulation,Hot Packs, Ultrasound Next Visit Focus/Plan Next Note Type Treatment Note Next Visit Plan Next: Continue functional strengthening R knee mechanics gait so can perform walking up and downhill with LRAD. Continue stretching (gastroc/ soleus for DF support). POC: R Knee mobility, strengthening, flexibility, gait
--- NOTE | 2025-04-18 17:18 | PT.OTN ---
Current Diagnoses Pain in right knee (04/18/25) Stiffness of right knee, not elsewhere classified (04/18/25) Other abnormalities of gait and mobility (04/18/25) Displaced comminuted fracture of right patella, subsequent encounter for closed fracture with routine healing (04/18/25) Physical Therapy Treatment Note PT-OP-A Visit Information Start: 02/09/25 15:48 Freq: Status: Active Protocol: Document 04/18/25 16:17 AB (Rec: 04/18/25 17:15 AB Laptop) Out-Patient Physical Therapy Visit Information Visit Information Visit Type Treatment Note Visit Start Time 16:18 Visit Stop Time 17:05 Visit Number 18 Number of CANNERY TENDER ENGINEER Visits 2 PT-OP-B Current Condition Start: 02/09/25 15:48 Freq: Status: Active Protocol: Document 02/09/25 12:20 DCW (Rec: 02/09/25 16:00 DCW [id number]) Current Condition History of Current Condition Onset Date November, Current Complaints Right knee pain, stiffness s/p patellar fracture, tendon rupture History of Current Condition Pt is a 64 year old male presenting to skilled therapy six weeks s/p patellar tendon repair, eight weeks total s/p initial injury. Pt reports he was in [facility] in November, visiting his daughter . Attempted to go down the steps in front of her house, slipped on ice, and landed very hard directly on his right knee on a concrete slab. Pt reports that bottom 10% of his patella was broken off, resulting in a retraction of his quad tendon and most of his patella up his thigh. Notes he had a surgical repair , the avulsion was too small to save, so it was removed from the patella tendon, and then the remaining patella was smoothed out, and the patellar tendon waswoven up through three hols drilled into the patella. Was locked into full extension for six weeks following surgery. Had a follow-up with the surgeon on 02/06/25, and his brace was unlocked from 0-50?. Notes he currently has no restrictions, the brace is locked at 50? just in case theres a fall. Currently using a LBQC for assistance ambulating. Pt reports surgeon wants his knee at 90? flexion two weeks from now, and 120? flexion in one month. Admits knee just feels really stiff, he is unable to flex far enough to feel much pain. PT-OP-C Subjective Start: 02/09/25 15:48 Freq: Status: Active Protocol: Document 04/18/25 16:17 AB (Rec: 04/18/25 17:15 AB Laptop) OP-PT Subjective Patient Comments Patient Comments Patient reports more weakness than pain ( it almost hurts) doing long arc quad 40 to 20 deg AROM 119 deg flexion start of session. PT-OP-F Manual Assessment Start: 02/09/25 15:48 Freq: Status: Active Protocol: Document 04/05/25 13:50 DCW (Rec: 04/05/25 14:53 DCW [id number]) Manual Assessments Joint Mobility Assessment Joint Mobility Assessment Substantial improvement with mobility of left knee joint. Mild limitations with mobility secondary to quad tone and decreased patella mobility PT-OP-J Posture/Palpation/Skin Start: 02/09/25 15:48 Freq: Status: Active Protocol: Document 02/17/25 10:47 SP (Rec: 02/17/25 16:04 SP [id number]) Skin Assessment Circumference Measurement 3 Location Right knee 6 cm superior to joint line Measurement (Centimeters) 50.1 Comments Left = 47.5 cm 2 Location Right knee joint line Measurement (Centimeters) 47.0 Comments Left = 44.8 cm 1 Location Right knee 6 cm inferior to joint line Measurement (Centimeters) 34.8 Comments Left = 43.1 cm PT-OP-K Range of Motion Start: 02/09/25 15:48 Freq: Status: Active Protocol: Document 04/05/25 13:50 DCW (Rec: 04/05/25 14:53 DCW [id number]) Knee Goniometric Range of Motion Knee Right Patient Position Supine Flexion Active (degrees) 119 Flexion Passive (degrees) 127 Extension Active (degrees) 0 Extension Passive (degrees) 0 Left Knee ROM WFL Yes Patient Position Supine Flexion Active (degrees) 130 Extension Active (degrees) 0 PT-OP-M Strength Start: 02/09/25 15:48 Freq: Status: Active Protocol: Document 04/05/25 13:50 DCW (Rec: 04/05/25 14:54 DCW [id number]) Knee Strength Knee Manual Muscle Testing Right Flexion (S2) 4 Good Extension (L3) 3+ Fair+ Left Flexion (S2) 5 Normal Extension (L3) 5 Normal PT-OP-Q Treatments Start: 02/09/25 15:48 Freq: Status: Active Protocol: Document 04/18/25 16:17 AB (Rec: 04/18/25 17:15 AB Laptop) Cardio Equipment Recumbent Bicycle Duration (Minutes) 8 Resistance 5 Seat Position 7 (1 min) ->5 (6 min- little backward)-> 4 (2 min- soft tissue calf limit) Other VC for alignment Gym Equipment Shuttle Recovery unilateral squat Details initiated with 12, then 25, 50 with navy hard, 50# with teal medium effort Reps/Time 50# with teal bands 15 X 2 R 87# L X 15 Bilateral Squats Details Flexion 125? Resistance 100# 4 navy Reps/Time X 15 no lock Therapeutic Exercises Standing Exercises stagger stance Standing Exercise Name R LE retro Reps/Minutes X 8 Comments reports some pain 20 to 40 deg range R knee wall squats Standing Exercise Name 1. with ball behind back Reps/Minutes X 8 Comments reports some pain 20 to 40 deg range R knee Other Exercises Step-ups Other Exercise Name step ups Side right Equipment Used on 4 inch step, scale, scale on 4 inch step Comments Increased UE use required 20 to 40 deg range 3-4 reps each Manual Therapy Treatment Consent Patient gave verbal consent for manual Yes treatment Soft Tissue Mobilization R leg Body Location R quad Mobilization Type Cross-Friction,Instrument Assisted,Rolling,Sustained Pressure Intensity/Depth Moderate Body Position Hooklying Comments and seated for trial of plunger with knee ext Joint Mobilizations Patella Joint R Patella Direction Inf/Sup, Med, CW and CCW Grade III Taping R knee Type of Tape I strp saniya patellar one med one lat to unload fat pad Skin Inspection wnl Comments slight improvement with LAQ, but pulled with bike use and had to be removed PT-OP-T Assessment and Plan Start: 02/09/25 15:48 Freq: Status: Active Protocol: Document 04/18/25 16:17 AB (Rec: 04/18/25 17:15 AB Laptop) Physical Therapy Assessment Goals Three Impairment Right knee weakness with flexion (2-/5) and extension ( 3/5) Foreign Collection Clerk Goal (LTG) Pt to demonstrate right knee MMT >4-/5 in both flexion and extension in order to return to previous functional mobility. 04/05/25 - Improving, flexion 4/ 5, extension 3+/5 LTG Duration 06/05/25 Two Impairment Significant limitations in right knee flexion (AROM 29?) Short Term Goal (STG) Pt to demonstrate improvement in right knee flexion to >90? STG Duration Met Foreign Collection Clerk Goal (LTG) Pt to improve active right knee flexion to >120? in order to return to prior level of function 04/05/25 - AROM 119?, PROM 127? LTG Duration 06/05/25 One Impairment Pt does not have an appropriate home exercise program Short Term Goal (STG) Pt to be independent and compliant with an appropriate HEP STG Duration Met Assessment Summary Assessment Good denys to single leg on shuttle recovery, but for weight bearing quad strengthening continues to have inc pain R LE 20-40 deg range. Physical Therapy Plan Frequency and Duration Frequency of Treatment 2x/Week Plan of Care Start Date 04/05/25 Plan of Care End Date 06/05/25 Next Visit Focus/Plan Next Note Type Treatment Note Next Visit Plan Next: Continue functional strengthening R knee mechanics gait so can perform walking up and downhill with LRAD. Continue stretching (gastroc/ soleus for DF support). POC: R Knee mobility, strengthening, flexibility, gait
--- NOTE | 2025-04-21 16:13 | PT.OTN ---
Addendum entered and electronically signed by Abraham Choudhury, PT 04/21/25 16:28: PT direct supervision and direction to student PT Marvin Martinez throughout session Original Note: Current Diagnoses Pain in right knee (04/21/25) Stiffness of right knee, not elsewhere classified (04/21/25) Other abnormalities of gait and mobility (04/21/25) Displaced comminuted fracture of right patella, subsequent encounter for closed fracture with routine healing (04/21/25) Physical Therapy Treatment Note PT-OP-A Visit Information Start: 02/09/25 15:48 Freq: Status: Active Protocol: Document 04/21/25 10:45 LFG (Rec: 04/21/25 12:05 LFG [id number]) Out-Patient Physical Therapy Visit Information Visit Information Visit Type Treatment Note Visit Start Time 10:45 Visit Stop Time 11:30 Visit Number 19 Number of [employer] Visits 0 PT-OP-B Current Condition Start: 02/09/25 15:48 Freq: Status: Active Protocol: Document 02/09/25 12:20 DCW (Rec: 02/09/25 16:00 DCW [id number]) Current Condition History of Current Condition Onset Date November, Current Complaints Right knee pain, stiffness s/p patellar fracture, tendon rupture History of Current Condition Pt is a 64 year old male presenting to skilled therapy six weeks s/p patellar tendon repair, eight weeks total s/p initial injury. Pt reports he was in [facility] in November, visiting his daughter . Attempted to go down the steps in front of her house, slipped on ice, and landed very hard directly on his right knee on a concrete slab. Pt reports that bottom 10% of his patella was broken off, resulting in a retraction of his quad tendon and most of his patella up his thigh. Notes he had a surgical repair , the avulsion was too small to save, so it was removed from the patella tendon, and then the remaining patella was smoothed out, and the patellar tendon waswoven up through three hols drilled into the patella. Was locked into full extension for six weeks following surgery. Had a follow-up with the surgeon on 02/06/25, and his brace was unlocked from 0-50?. Notes he currently has no restrictions, the brace is locked at 50? just in case theres a fall. Currently using a LBQC for assistance ambulating. Pt reports surgeon wants his knee at 90? flexion two weeks from now, and 120? flexion in one month. Admits knee just feels really stiff, he is unable to flex far enough to feel much pain. PT-OP-C Subjective Start: 02/09/25 15:48 Freq: Status: Active Protocol: Document 04/21/25 10:45 LFG (Rec: 04/21/25 12:05 LFG [id number]) OP-PT Subjective Patient Comments Patient Comments Patient reports feeling good today, ROM feels the same since last session, now thinks the main concern is a matter of strength in the knee, particularly in lifting the knee and stepping down PT-OP-F Manual Assessment Start: 02/09/25 15:48 Freq: Status: Active Protocol: Document 04/05/25 13:50 DCW (Rec: 04/05/25 14:53 DCW [id number]) Manual Assessments Joint Mobility Assessment Joint Mobility Assessment Substantial improvement with mobility of left knee joint. Mild limitations with mobility secondary to quad tone and decreased patella mobility PT-OP-J Posture/Palpation/Skin Start: 02/09/25 15:48 Freq: Status: Active Protocol: Document 02/17/25 10:47 SP (Rec: 02/17/25 16:04 SP [id number]) Skin Assessment Circumference Measurement 3 Location Right knee 6 cm superior to joint line Measurement (Centimeters) 50.1 Comments Left = 47.5 cm 2 Location Right knee joint line Measurement (Centimeters) 47.0 Comments Left = 44.8 cm 1 Location Right knee 6 cm inferior to joint line Measurement (Centimeters) 34.8 Comments Left = 43.1 cm PT-OP-K Range of Motion Start: 02/09/25 15:48 Freq: Status: Active Protocol: Document 04/05/25 13:50 DCW (Rec: 04/05/25 14:53 DCW [id number]) Knee Goniometric Range of Motion Knee Right Patient Position Supine Flexion Active (degrees) 119 Flexion Passive (degrees) 127 Extension Active (degrees) 0 Extension Passive (degrees) 0 Left Knee ROM WFL Yes Patient Position Supine Flexion Active (degrees) 130 Extension Active (degrees) 0 PT-OP-M Strength Start: 02/09/25 15:48 Freq: Status: Active Protocol: Document 04/05/25 13:50 DCW (Rec: 04/05/25 14:54 DCW [id number]) Knee Strength Knee Manual Muscle Testing Right Flexion (S2) 4 Good Extension (L3) 3+ Fair+ Left Flexion (S2) 5 Normal Extension (L3) 5 Normal PT-OP-Q Treatments Start: 02/09/25 15:48 Freq: Status: Active Protocol: Document 04/21/25 10:45 LFG (Rec: 04/21/25 12:05 LFG [id number]) Cardio Equipment Recumbent Bicycle Duration (Minutes) 8 Resistance 6 Seat Position 7 (1min), 5 (5 min fwd, 2 min bwd) Gym Equipment Shuttle Recovery Bilateral Squats Resistance 100# 4 [employer] Recovery Platform Stable Reps/Time x15 no locking out Therapeutic Exercises Supine Exercises Short arc quad Side right Resistance 2# too easy, 5# still easy Equipment Used Med then large Foam roller under R LE, 2#,5# ankle weight Reps/Minutes 15-20x2 Comments VC to control eccentric, pt felt quad working Prone Exercises Quad stretch Prone Exercise Name Quad stretch w/ strap Side right Equipment Used strap Reps/Minutes 60 sec Comments Pt felt stretch in quad Standing Exercises TKE Standing Exercise Name TKE Side right Resistance L4 TB Reps/Minutes 15 Comments VC to control knee bend, and to keep heel from lifting Sit to stand Standing Exercise Name sit to stand (chair height approx) Side bilateral Resistance BW Equipment Used mat table Reps/Minutes 10-15x2 Comments Pt reported ex to be hard and felt quad working, started getting sweaty Other Exercises Step-ups Other Exercise Name Step *downs* Side right Equipment Used 4in box (staircase), w/ handrails Reps/Minutes 2x15 Comments 50% of bilateral UE assist, felt weak and hard PT-OP-T Assessment and Plan Start: 02/09/25 15:48 Freq: Status: Active Protocol: Document 04/21/25 10:45 LFG (Rec: 04/21/25 12:05 LFG [id number]) Physical Therapy Assessment Goals Three Impairment Right knee weakness with flexion (2-/5) and extension ( 3/5) Jail Goal (LTG) Pt to demonstrate right knee MMT >4-/5 in both flexion and extension in order to return to previous functional mobility. 04/05/25 - Improving, flexion 4/ 5, extension 3+/5 LTG Duration 06/05/25 Two Impairment Significant limitations in right knee flexion (AROM 29?) Short Term Goal (STG) Pt to demonstrate improvement in right knee flexion to >90? STG Duration Met Imaging Technician Goal (LTG) Pt to improve active right knee flexion to >120? in order to return to prior level of function 04/05/25 - AROM 119?, PROM 127? LTG Duration 06/05/25 One Impairment Pt does not have an appropriate home exercise program Short Term Goal (STG) Pt to be independent and compliant with an appropriate HEP STG Duration Met Assessment Summary Assessment Pt tolerated todays session well, struggling with the eccentric phase of todays exercises. Pt continues to have limited R knee flexion and R quad weakness, eccentric more than concentric and would benefit from eccentric quad strengthening exercises. Physical Therapy Plan Frequency and Duration Frequency of Treatment 2x/Week Plan of Care Start Date 04/05/25 Plan of Care End Date 06/05/25 Therapeutic Interventions Therapeutic Interventions Balance Training,Coordination Training,Gait Training,Home Exercise Program,Joint Mobilizations,Manual Therapy, Neuromuscular Re-education, Patient/Caregiver Education, Self-Care/Home Management,Soft Tissue Mobilization,Taping, Therapeutic Activities, Therapeutic Exercises Modalities Cold Pack/Ice Massage,Electric Stimulation,Hot Packs, Ultrasound Next Visit Focus/Plan Next Note Type Treatment Note Next Visit Plan Next: Continue functional strengthening R knee mechanics gait so can perform walking up and downhill with LRAD. Continue stretching (gastroc/ soleus for DF support). POC: R Knee mobility, strengthening, flexibility, gait
--- NOTE | 2025-04-25 11:29 | PT.OTN ---
Current Diagnoses Pain in right knee (04/25/25) Stiffness of right knee, not elsewhere classified (04/25/25) Other abnormalities of gait and mobility (04/25/25) Displaced comminuted fracture of right patella, subsequent encounter for closed fracture with routine healing (04/25/25) Physical Therapy Treatment Note PT-OP-A Visit Information Start: 02/09/25 15:48 Freq: Status: Active Protocol: Document 04/25/25 10:48 PG (Rec: 04/25/25 12:01 PG Laptop) Out-Patient Physical Therapy Visit Information Visit Information Visit Type Treatment Note Visit Note Kelly PAT led tx with permission of pt and direct supervision from Raissa BRAY. Visit Start Time 10:48 Visit Stop Time 11:29 Visit Number 20 Number of STRIKER OUT Visits 1 PT-OP-B Current Condition Start: 02/09/25 15:48 Freq: Status: Active Protocol: Document 02/09/25 12:20 DCW (Rec: 02/09/25 16:00 DCW [id number]) Current Condition History of Current Condition Onset Date November, Current Complaints Right knee pain, stiffness s/p patellar fracture, tendon rupture History of Current Condition Pt is a 64 year old male presenting to skilled therapy six weeks s/p patellar tendon repair, eight weeks total s/p initial injury. Pt reports he was in [facility] in November, visiting his daughter . Attempted to go down the steps in front of her house, slipped on ice, and landed very hard directly on his right knee on a concrete slab. Pt reports that bottom 10% of his patella was broken off, resulting in a retraction of his quad tendon and most of his patella up his thigh. Notes he had a surgical repair , the avulsion was too small to save, so it was removed from the patella tendon, and then the remaining patella was smoothed out, and the patellar tendon waswoven up through three hols drilled into the patella. Was locked into full extension for six weeks following surgery. Had a follow-up with the surgeon on 02/06/25, and his brace was unlocked from 0-50?. Notes he currently has no restrictions, the brace is locked at 50? just in case theres a fall. Currently using a LBQC for assistance ambulating. Pt reports surgeon wants his knee at 90? flexion two weeks from now, and 120? flexion in one month. Admits knee just feels really stiff, he is unable to flex far enough to feel much pain. PT-OP-C Subjective Start: 02/09/25 15:48 Freq: Status: Active Protocol: Document 04/25/25 10:48 PG (Rec: 04/25/25 12:01 PG Laptop) OP-PT Subjective Patient Comments Patient Comments Pt took a few walks this last weekend. 1 on the pavement and 1 in the wood area on uneven terrain. Did well, used his cane on the uneven terrain. PT-OP-F Manual Assessment Start: 02/09/25 15:48 Freq: Status: Active Protocol: Document 04/05/25 13:50 DCW (Rec: 04/05/25 14:53 DCW [id number]) Manual Assessments Joint Mobility Assessment Joint Mobility Assessment Substantial improvement with mobility of left knee joint. Mild limitations with mobility secondary to quad tone and decreased patella mobility PT-OP-J Posture/Palpation/Skin Start: 02/09/25 15:48 Freq: Status: Active Protocol: Document 02/17/25 10:47 SP (Rec: 02/17/25 16:04 SP [id number]) Skin Assessment Circumference Measurement 3 Location Right knee 6 cm superior to joint line Measurement (Centimeters) 50.1 Comments Left = 47.5 cm 2 Location Right knee joint line Measurement (Centimeters) 47.0 Comments Left = 44.8 cm 1 Location Right knee 6 cm inferior to joint line Measurement (Centimeters) 34.8 Comments Left = 43.1 cm PT-OP-K Range of Motion Start: 02/09/25 15:48 Freq: Status: Active Protocol: Document 04/05/25 13:50 DCW (Rec: 04/05/25 14:53 DCW [id number]) Knee Goniometric Range of Motion Knee Right Patient Position Supine Flexion Active (degrees) 119 Flexion Passive (degrees) 127 Extension Active (degrees) 0 Extension Passive (degrees) 0 Left Knee ROM WFL Yes Patient Position Supine Flexion Active (degrees) 130 Extension Active (degrees) 0 PT-OP-M Strength Start: 02/09/25 15:48 Freq: Status: Active Protocol: Document 04/05/25 13:50 DCW (Rec: 04/05/25 14:54 DCW [id number]) Knee Strength Knee Manual Muscle Testing Right Flexion (S2) 4 Good Extension (L3) 3+ Fair+ Left Flexion (S2) 5 Normal Extension (L3) 5 Normal PT-OP-Q Treatments Start: 02/09/25 15:48 Freq: Status: Active Protocol: Document 04/25/25 10:48 PG (Rec: 04/25/25 12:01 PG Laptop) Cardio Equipment Recumbent Bicycle Duration (Minutes) 8 Resistance 5 Seat Position 7 (1 min) ->5 (6 min- little backward)-> 4 (2 min- soft tissue calf limit) Therapeutic Exercises Standing Exercises Hip Flexor Stretch Standing Exercise Name trialed toe tucked on seat Side right Equipment Used mesh chair, BUE support Reps/Minutes 30 sec each TKE Standing Exercise Name Reviewed TKE Side right Resistance L4 TB Equipment Used BUE's on chair infront of body , TB above knee anchored bit abv knee height Reps/Minutes 2x15 Comments cues for slow pace, small range, stable pelvis Sit to stand Standing Exercise Name sit to stand added to HEP (no HO): x10 Break, lunch, dinner Side bilateral Resistance BW Equipment Used mesh chair Reps/Minutes 2x10 Comments cued controlled knee flexion, bottom tap to chair Other Exercises Step-ups Other Exercise Name Added to HEP no HO: Step * Downs* with 3inch Side right Equipment Used 4in box (BUE support) > 2in box > 3in (textbook) (minimal UE support) Reps/Minutes several reps Comments Cues for heel strike, eccentric control with R knee flex PT-OP-T Assessment and Plan Start: 02/09/25 15:48 Freq: Status: Active Protocol: Document 04/25/25 10:48 PG (Rec: 04/25/25 12:01 PG Laptop) Physical Therapy Assessment Goals Three Impairment Right knee weakness with flexion (2-/5) and extension ( 3/5) Shelter Goal (LTG) Pt to demonstrate right knee MMT >4-/5 in both flexion and extension in order to return to previous functional mobility. 04/05/25 - Improving, flexion 4/ 5, extension 3+/5 LTG Duration 06/05/25 Two Impairment Significant limitations in right knee flexion (AROM 29?) Short Term Goal (STG) Pt to demonstrate improvement in right knee flexion to >90? STG Duration Met Insulation Manager Goal (LTG) Pt to improve active right knee flexion to >120? in order to return to prior level of function 04/05/25 - AROM 119?, PROM 127? LTG Duration 06/05/25 One Impairment Pt does not have an appropriate home exercise program Short Term Goal (STG) Pt to be independent and compliant with an appropriate HEP STG Duration Met Assessment Summary Assessment Today's tx continued to focus on R knee flexion and eccentric strengthening. Reviewed STS's with focus on controlled knee flexion and tapping bottom to chair, good challenge for pt, added to HEP , HO declined. Continued to work on step downs to work on knee flexion and eccentric control when descending the stairs. Pt was unable to perform step downs on 4inch step with good eccentric quad control and required moderate BUE support. Trialed 2inch > 3inch step (textbook) and pt was able to perform step downs with good eccentric control and minimal UE support. Cued for heel strike with LLE when stepping down. Physical Therapy Plan Frequency and Duration Frequency of Treatment 2x/Week Plan of Care Start Date 04/05/25 Plan of Care End Date 06/05/25 Therapeutic Interventions Therapeutic Interventions Balance Training,Coordination Training,Gait Training,Home Exercise Program,Joint Mobilizations,Manual Therapy, Neuromuscular Re-education, Patient/Caregiver Education, Self-Care/Home Management,Soft Tissue Mobilization,Taping, Therapeutic Activities, Therapeutic Exercises Modalities Cold Pack/Ice Massage,Electric Stimulation,Hot Packs, Ultrasound Next Visit Focus/Plan Next Note Type Treatment Note Next Visit Plan Next: 4 approved visits remaining, need more? Prog note by 05/10/25 (based off 30 days). Review TKE and step downs off 3in step. Reassess on 4inch step. Continue functional strengthening R knee mechanics gait so can perform walking up and downhill with LRAD. Continue stretching (gastroc/ soleus for DF support). POC: R Knee mobility, strengthening, flexibility, gait
--- NOTE | 2025-04-28 11:34 | PT.OTN ---
Current Diagnoses Pain in right knee (04/28/25) Stiffness of right knee, not elsewhere classified (04/28/25) Other abnormalities of gait and mobility (04/28/25) Displaced comminuted fracture of right patella, subsequent encounter for closed fracture with routine healing (04/28/25) Physical Therapy Treatment Note PT-OP-A Visit Information Start: 02/09/25 15:48 Freq: Status: Active Protocol: Document 04/28/25 10:49 DCW (Rec: 04/28/25 11:34 DCW [id number]) Out-Patient Physical Therapy Visit Information Visit Information Visit Type Treatment Note Visit Start Time 10:49 Visit Stop Time 11:30 Visit Number 21 Number of MITER OPERATOR Visits 0 Evaluation Information Evaluation Date 02/09/25 PT-OP-B Current Condition Start: 02/09/25 15:48 Freq: Status: Active Protocol: Document 02/09/25 12:20 DCW (Rec: 02/09/25 16:00 DCW [id number]) Current Condition History of Current Condition Onset Date November, Current Complaints Right knee pain, stiffness s/p patellar fracture, tendon rupture History of Current Condition Pt is a 64 year old male presenting to skilled therapy six weeks s/p patellar tendon repair, eight weeks total s/p initial injury. Pt reports he was in [facility] in November, visiting his daughter . Attempted to go down the steps in front of her house, slipped on ice, and landed very hard directly on his right knee on a concrete slab. Pt reports that bottom 10% of his patella was broken off, resulting in a retraction of his quad tendon and most of his patella up his thigh. Notes he had a surgical repair , the avulsion was too small to save, so it was removed from the patella tendon, and then the remaining patella was smoothed out, and the patellar tendon waswoven up through three hols drilled into the patella. Was locked into full extension for six weeks following surgery. Had a follow-up with the surgeon on 02/06/25, and his brace was unlocked from 0-50?. Notes he currently has no restrictions, the brace is locked at 50? just in case theres a fall. Currently using a LBQC for assistance ambulating. Pt reports surgeon wants his knee at 90? flexion two weeks from now, and 120? flexion in one month. Admits knee just feels really stiff, he is unable to flex far enough to feel much pain. PT-OP-C Subjective Start: 02/09/25 15:48 Freq: Status: Active Protocol: Document 04/28/25 10:49 DCW (Rec: 04/28/25 11:34 DCW [id number]) OP-PT Subjective Patient Comments Patient Comments Pt notes that the past few days have just been a little bit more sore and stiff than it has recently. Sore like you've over-done it sore, but does not remember doing anything specific PT-OP-F Manual Assessment Start: 02/09/25 15:48 Freq: Status: Active Protocol: Document 04/05/25 13:50 DCW (Rec: 04/05/25 14:53 DCW [id number]) Manual Assessments Joint Mobility Assessment Joint Mobility Assessment Substantial improvement with mobility of left knee joint. Mild limitations with mobility secondary to quad tone and decreased patella mobility PT-OP-J Posture/Palpation/Skin Start: 02/09/25 15:48 Freq: Status: Active Protocol: Document 02/17/25 10:47 SP (Rec: 02/17/25 16:04 SP [id number]) Skin Assessment Circumference Measurement 3 Location Right knee 6 cm superior to joint line Measurement (Centimeters) 50.1 Comments Left = 47.5 cm 2 Location Right knee joint line Measurement (Centimeters) 47.0 Comments Left = 44.8 cm 1 Location Right knee 6 cm inferior to joint line Measurement (Centimeters) 34.8 Comments Left = 43.1 cm PT-OP-K Range of Motion Start: 02/09/25 15:48 Freq: Status: Active Protocol: Document 04/05/25 13:50 DCW (Rec: 04/05/25 14:53 DCW [id number]) Knee Goniometric Range of Motion Knee Right Patient Position Supine Flexion Active (degrees) 119 Flexion Passive (degrees) 127 Extension Active (degrees) 0 Extension Passive (degrees) 0 Left Knee ROM WFL Yes Patient Position Supine Flexion Active (degrees) 130 Extension Active (degrees) 0 PT-OP-M Strength Start: 02/09/25 15:48 Freq: Status: Active Protocol: Document 04/05/25 13:50 DCW (Rec: 04/05/25 14:54 DCW [id number]) Knee Strength Knee Manual Muscle Testing Right Flexion (S2) 4 Good Extension (L3) 3+ Fair+ Left Flexion (S2) 5 Normal Extension (L3) 5 Normal PT-OP-Q Treatments Start: 02/09/25 15:48 Freq: Status: Active Protocol: Document 04/28/25 10:49 DCW (Rec: 04/28/25 11:34 DCW [id number]) Cardio Equipment Recumbent Bicycle Duration (Minutes) 6 Resistance 5 Seat Position 6 (1 min) -> 4 (5 min) Gym Equipment Shuttle Recovery unilateral squat Details Focus on strengthening at end- range extension 20?-40? Resistance 50# Shuttle Recovery Platform Stable Reps/Time 3x10, 1x20 Shuttle Balance Red Details WBOS, Staggered, Lateral weight shift Therapeutic Exercises Standing Exercises Stationary lunge Standing Exercise Name RODERICKU Lungamar[place] Side right Neuro Re-Education Treatment Balance Activities Uneven Surface Details Ambulation on uneven surfaces Surface Blue pads over objects PT-OP-T Assessment and Plan Start: 02/09/25 15:48 Freq: Status: Active Protocol: Document 04/28/25 10:49 DCW (Rec: 04/28/25 11:34 DCW [id number]) Physical Therapy Assessment Impairments Impairments Activity Tolerance,Balance, Edema,Functional Activities, Functional Mobility,Gait, Integument,Pain,ROM,Soft Tissue Mobility,Strength,Tone Goals Three Impairment Right knee weakness with flexion (2-/5) and extension ( 3/5) Nursing Home Goal (LTG) Pt to demonstrate right knee MMT >4-/5 in both flexion and extension in order to return to previous functional mobility. 04/05/25 - Improving, flexion 4/ 5, extension 3+/5 LTG Duration 06/05/25 Two Impairment Significant limitations in right knee flexion (AROM 29?) Short Term Goal (STG) Pt to demonstrate improvement in right knee flexion to >90? STG Duration Met Nursing Home Goal (LTG) Pt to improve active right knee flexion to >120? in order to return to prior level of function 04/05/25 - AROM 119?, PROM 127? LTG Duration 06/05/25 One Impairment Pt does not have an appropriate home exercise program Short Term Goal (STG) Pt to be independent and compliant with an appropriate HEP STG Duration Met Assessment Summary Assessment Pt showing very good ROM today , but continues to demonstrate quad weakness in the 20?-40? range. [place] smaller arc of motion on leg press with the focus in that range was beneficial today. Did well on the Shuttle Balance, felt it was also a good strengthening activity. Physical Therapy Plan Frequency and Duration Frequency of Treatment 2x/Week Plan of Care Start Date 04/05/25 Plan of Care End Date 06/05/25 Therapeutic Interventions Therapeutic Interventions Balance Training,Coordination Training,Gait Training,Home Exercise Program,Joint Mobilizations,Manual Therapy, Neuromuscular Re-education, Patient/Caregiver Education, Self-Care/Home Management,Soft Tissue Mobilization,Taping, Therapeutic Activities, Therapeutic Exercises Modalities Cold Pack/Ice Massage,Electric Stimulation,Hot Packs, Ultrasound Next Visit Focus/Plan Next Note Type Treatment Note Next Visit Plan Next: 4 approved visits remaining, need more? Prog note by 05/10/25 (based off 30 days). Review TKE and step downs off 3in step. Reassess on 4inch step. Continue functional strengthening R knee mechanics gait so can perform walking up and downhill with LRAD. Continue stretching (gastroc/ soleus for DF support). POC: R Knee mobility, strengthening, flexibility, gait
--- NOTE | 2025-05-02 09:47 | PT.OTN ---
Current Diagnoses Pain in right knee (05/02/25) Stiffness of right knee, not elsewhere classified (05/02/25) Other abnormalities of gait and mobility (05/02/25) Displaced comminuted fracture of right patella, subsequent encounter for closed fracture with routine healing (05/02/25) Physical Therapy Treatment Note PT-OP-A Visit Information Start: 02/09/25 15:48 Freq: Status: Active Protocol: Document 05/02/25 09:03 SP (Rec: 05/02/25 10:47 SP [id number]) Out-Patient Physical Therapy Visit Information Visit Information Visit Type Treatment Note Visit Start Time 09:03 Visit Stop Time 09:47 Visit Number 22 Number of TOWER HELPER Visits 1 PT-OP-B Current Condition Start: 02/09/25 15:48 Freq: Status: Active Protocol: Document 02/09/25 12:20 DCW (Rec: 02/09/25 16:00 DCW [id number]) Current Condition History of Current Condition Onset Date November, Current Complaints Right knee pain, stiffness s/p patellar fracture, tendon rupture History of Current Pt is a 64 year old male presenting to [facility] therapy Condition six weeks s/p patellar tendon repair, eight weeks total s/p initial injury. Pt reports he was in [facility] in November, visiting his daughter. Attempted to go down the steps in front of her house, slipped on ice, and landed very hard directly on his right knee on a concrete slab. Pt reports that bottom 10% of his patella was broken off, resulting in a retraction of his quad tendon and most of his patella up his thigh. Notes he had a surgical repair, the avulsion was too small to save, so it was removed from the patella tendon, and then the remaining patella was smoothed out , and the patellar tendon waswoven up through three hols drilled into the patella. Was locked into full extension for six weeks following surgery. Had a follow -up with the surgeon on 02/06/25, and his brace was unlocked from 0-50?. Notes he currently has no restrictions, the brace is locked at 50? just in case theres a fall. Currently using a LBQC for assistance ambulating. Pt reports surgeon wants his knee at 90? flexion two weeks from now, and 120? flexion in one month. Admits knee just feels really stiff, he is unable to flex far enough to feel much pain. PT-OP-C Subjective Start: 02/09/25 15:48 Freq: Status: Active Protocol: Document 05/02/25 09:03 SP (Rec: 05/02/25 10:47 SP [id number]) OP-PT Subjective Patient Comments Patient Comments Pt arrives with no AD now. He reported has been doing trail walking with SPC and slow/cautious, descending has had R knee buckle but recovered. He reports improved strength ascending but tires quickly needing SPC support so brings with him. PT-OP-F Manual Assessment Start: 02/09/25 15:48 Freq: Status: Active Protocol: Document 04/05/25 13:50 DCW (Rec: 04/05/25 14:53 DCW [id number]) Manual Assessments Joint Mobility Assessment Joint Mobility Substantial improvement with mobility of left knee Assessment joint. Mild limitations with mobility secondary to quad tone and decreased patella mobility PT-OP-J Posture/Palpation/Skin Start: 02/09/25 15:48 Freq: Status: Active Protocol: Document 02/17/25 10:47 SP (Rec: 02/17/25 16:04 SP [id number]) Skin Assessment Circumference Measurement 3 Location Right knee 6 cm superior to joint line Measurement ( 50.1 Centimeters) Comments Left = 47.5 cm 2 Location Right knee joint line Measurement ( 47.0 Centimeters) Comments Left = 44.8 cm 1 Location Right knee 6 cm inferior to joint line Measurement ( 34.8 Centimeters) Comments Left = 43.1 cm PT-OP-K Range of Motion Start: 02/09/25 15:48 Freq: Status: Active Protocol: Document 04/05/25 13:50 DCW (Rec: 04/05/25 14:53 DCW [id number]) Knee Goniometric Range of Motion Knee Right Patient Position Supine Flexion Active ( 119 degrees) Flexion Passive ( 127 degrees) Extension Active ( 0 degrees) Extension Passive ( 0 degrees) Left Knee ROM WFL Yes Patient Position Supine Flexion Active ( 130 degrees) Extension Active ( 0 degrees) PT-OP-M Strength Start: 02/09/25 15:48 Freq: Status: Active Protocol: Document 04/05/25 13:50 DCW (Rec: 04/05/25 14:54 DCW [id number]) Knee Strength Knee Manual Muscle Testing Right Flexion (S2) 4 Good Extension (L3) 3+ Fair+ Left Flexion (S2) 5 Normal Extension (L3) 5 Normal PT-OP-Q Treatments Start: 02/09/25 15:48 Freq: Status: Active Protocol: Document 05/02/25 09:03 SP (Rec: 05/02/25 10:47 SP [id number]) Cardio Equipment Recumbent Bicycle Duration (Minutes) 6 Resistance 5 Seat Position 5>4 Other 53 RPMs Gait Training Gait Activity Stairs Description 1. indoor 4 (hands hover rail), 6 steps (no HR asc/1 UE support desc) Device Used 2. outdoor: 5 step B Trekpole desc, light if needed ascend. Comments receiprocal asc/step to desc for increased reps R knee flexion leading LLE. almost normal 4 step Outside Uneven Ground Description Inclined/decline grass, gravel, landscape: fwd, backward Comments with and without trek poles with education for patterning support longer endurance on trails. Quick pacing Description no AD Comments improved decreased limp on RLE stance time and gait phases, discussed with pt to try to incorporate quicker mobility to re-ed R knee normal mobility with verbalized understanding and noted carry over leaving today. Neuro Re-Education Treatment Balance Activities SLS Details intiated in PT Equipment SLS inside //bars- hands hover LLE, PRN contact RLE Reps/Duration 8 min Comments cued soft knee unlocked, core fac with posture improved midline. Uneven Surface Details Ambulation on uneven surfaces- indoors Equipment 2 Blue pads over pods, foam stones, rocker board, discs , added 3>6 hurdles Reps/Duration many laps Comments no AD fwd, lateral, added Jaquan trek poles end for awareness for declined uneven surface for eccentric flexion support- improved patterning. PT-OP-T Assessment and Plan Start: 02/09/25 15:48 Freq: Status: Active Protocol: Document 05/02/25 09:03 SP (Rec: 05/02/25 10:47 SP [id number]) Physical Therapy Assessment Goals Three Impairment Right knee weakness with flexion (2-/5) and extension ( 3/5) Intermediate Goal (LTG) Pt to demonstrate right knee MMT >4-/5 in both flexion and extension in order to return to previous functional mobility. 04/05/25 - Improving, flexion 4/5, extension 3+/5 LTG Duration 06/05/25 Two Impairment Significant limitations in right knee flexion (AROM 29? ) Short Term Goal (STG Pt to demonstrate improvement in right knee flexion to ) >90? STG Duration Met Intermediate Goal (LTG) Pt to improve active right knee flexion to >120? in order to return to prior level of function 04/05/25 - AROM 119?, PROM 127? LTG Duration 06/05/25 One Impairment Pt does not have an appropriate home exercise program Short Term Goal (STG Pt to be independent and compliant with an appropriate ) HEP STG Duration Met Assessment Summary Assessment Pt improved use of trek poles during tx for trail walking awareness support quad con and eccentric support descend/ascend safety. Improved SLS time during balance activity each LE R>L time spent, cues for soft knee and postural corrections midline. Physical Therapy Plan Frequency and Duration Frequency of 2x/Week Treatment Plan of Care Start 04/05/25 Date Plan of Care End 06/05/25 Date Therapeutic Interventions Therapeutic Balance Training,Coordination Training,Gait Training, Interventions Home Exercise Program,Joint Mobilizations,Manual Therapy,Neuromuscular Re-education,Patient/Caregiver Education,Self-Care/Home Management,Soft Tissue Mobilization,Taping,Therapeutic Activities,Therapeutic Exercises Modalities Cold Pack/Ice Massage,Electric Stimulation,Hot Packs, Ultrasound Next Visit Focus/Plan Next Note Type Treatment Note Next Visit Plan Next: 2 approved visits remaining, need more? Prog note by 05/10/25 (based off 30 days). Continue TKE and step downs off 3in step. Support return to uneven trail walking. Continue functional strengthening R knee mechanics gait so can perform walking up and downhill with LRAD. Continue stretching (gastroc/soleus for DF support). POC: R Knee mobility, strengthening, flexibility, gait
--- NOTE | 2025-05-04 11:34 | PT.OTN ---
Current Diagnoses Pain in right knee (05/04/25) Stiffness of right knee, not elsewhere classified (05/04/25) Other abnormalities of gait and mobility (05/04/25) Displaced comminuted fracture of right patella, subsequent encounter for closed fracture with routine healing (05/04/25) Physical Therapy Treatment Note PT-OP-A Visit Information Start: 02/09/25 15:48 Freq: Status: Active Protocol: Document 05/04/25 10:48 SP (Rec: 05/04/25 11:36 SP [id number]) Out-Patient Physical Therapy Visit Information Visit Information Visit Type Treatment Note Visit Start Time 10:48 Visit Stop Time 11:34 Visit Number 23 Number of ROPEMAN Visits 2 PT-OP-B Current Condition Start: 02/09/25 15:48 Freq: Status: Active Protocol: Document 02/09/25 12:20 DCW (Rec: 02/09/25 16:00 DCW [id number]) Current Condition History of Current Condition Onset Date November, Current Complaints Right knee pain, stiffness s/p patellar fracture, tendon rupture History of Current Pt is a 64 year old male presenting to [facility] therapy Condition six weeks s/p patellar tendon repair, eight weeks total s/p initial injury. Pt reports he was in [facility] in November, visiting his daughter. Attempted to go down the steps in front of her house, slipped on ice, and landed very hard directly on his right knee on a concrete slab. Pt reports that bottom 10% of his patella was broken off, resulting in a retraction of his quad tendon and most of his patella up his thigh. Notes he had a surgical repair, the avulsion was too small to save, so it was removed from the patella tendon, and then the remaining patella was smoothed out , and the patellar tendon waswoven up through three hols drilled into the patella. Was locked into full extension for six weeks following surgery. Had a follow -up with the surgeon on 02/06/25, and his brace was unlocked from 0-50?. Notes he currently has no restrictions, the brace is locked at 50? just in case theres a fall. Currently using a LBQC for assistance ambulating. Pt reports surgeon wants his knee at 90? flexion two weeks from now, and 120? flexion in one month. Admits knee just feels really stiff, he is unable to flex far enough to feel much pain. PT-OP-C Subjective Start: 02/09/25 15:48 Freq: Status: Active Protocol: Document 05/04/25 10:48 SP (Rec: 05/04/25 11:36 SP [id number]) OP-PT Subjective Patient Comments Patient Comments Pt reports has been doing more walking past few days rough generally flat uneven paved and incline/decline at [facility] than [facility]. Stated still has hard time descending stairs or declines wants to continue. PT-OP-F Manual Assessment Start: 02/09/25 15:48 Freq: Status: Active Protocol: Document 04/05/25 13:50 DCW (Rec: 04/05/25 14:53 DCW [id number]) Manual Assessments Joint Mobility Assessment Joint Mobility Substantial improvement with mobility of left knee Assessment joint. Mild limitations with mobility secondary to quad tone and decreased patella mobility PT-OP-J Posture/Palpation/Skin Start: 02/09/25 15:48 Freq: Status: Active Protocol: Document 02/17/25 10:47 SP (Rec: 02/17/25 16:04 SP [id number]) Skin Assessment Circumference Measurement 3 Location Right knee 6 cm superior to joint line Measurement ( 50.1 Centimeters) Comments Left = 47.5 cm 2 Location Right knee joint line Measurement ( 47.0 Centimeters) Comments Left = 44.8 cm 1 Location Right knee 6 cm inferior to joint line Measurement ( 34.8 Centimeters) Comments Left = 43.1 cm PT-OP-K Range of Motion Start: 02/09/25 15:48 Freq: Status: Active Protocol: Document 04/05/25 13:50 DCW (Rec: 04/05/25 14:53 DCW [id number]) Knee Goniometric Range of Motion Knee Right Patient Position Supine Flexion Active ( 119 degrees) Flexion Passive ( 127 degrees) Extension Active ( 0 degrees) Extension Passive ( 0 degrees) Left Knee ROM WFL Yes Patient Position Supine Flexion Active ( 130 degrees) Extension Active ( 0 degrees) PT-OP-M Strength Start: 02/09/25 15:48 Freq: Status: Active Protocol: Document 04/05/25 13:50 DCW (Rec: 04/05/25 14:54 DCW [id number]) Knee Strength Knee Manual Muscle Testing Right Flexion (S2) 4 Good Extension (L3) 3+ Fair+ Left Flexion (S2) 5 Normal Extension (L3) 5 Normal PT-OP-Q Treatments Start: 02/09/25 15:48 Freq: Status: Active Protocol: Document 05/04/25 10:48 SP (Rec: 05/04/25 11:36 SP [id number]) Cardio Equipment Bicycle (Upright) Duration (Minutes) 7 Resistance 12 Seat Position 8 Other 50 RPMs trialed for if future bike riding (doesn't like up bike seat feel) Therapeutic Exercises Sitting Exercises LAQ Side right Resistance 4# leg wt Equipment Used chair /c cushion vs table Reps/Minutes 10 reps, 20 reps Comments cues for TKE, LEvel pelvis (tends to tilt off to L), good slow ecc control Standing Exercises Hamstring Curls Standing Exercise Hamstring Curls Name Side bilateral Resistance 4# leg wt Equipment Used Light 1 UE support for bal during ex Reps/Minutes 20 x2 sets each side Comments Improved SLS time soft knee on R during L Other Exercises Step-ups Other Exercise Name 1. step up BOSU 2. step down 4 step Side right Equipment Used light contact elevated Reps/Minutes several reps Comments Cues for heel strike, eccentric control with R knee flex Gait Training Gait Activity Stairs Description 1. indoor 4 (hands hover rail), 6 steps (no HR asc/1 UE support desc) Device Used 2. outdoor: 5 step B Trekpole desc, light if needed ascend. Comments receiprocal asc/step to desc for increased reps R knee flexion leading LLE. Outside Uneven Ground Description gravel Comments fwd, bwd as/desc Quick pacing Description fwd/bwd/lateral Comments square ladder- 2 feet in each square- improved midrange quad engagement and stability- still decreased stance time but improved WB nat time for carryover normalize walking and compliment eccentric flexion motion on R Neuro Re-Education Treatment Balance Activities BOSU Details mini squat Equipment PRN outside stair post Comments 1. dome side 10 reps 2. fat side 10 reps- easier SLS Details BOSU Surface R Equipment Light contact table Comments between step ups PT-OP-T Assessment and Plan Start: 02/09/25 15:48 Freq: Status: Active Protocol: Document 05/04/25 10:48 SP (Rec: 05/04/25 11:36 SP [id number]) Physical Therapy Assessment Goals Three Impairment Right knee weakness with flexion (2-/5) and extension ( 3/5) Surgical Appliances Salesperson Goal (LTG) Pt to demonstrate right knee MMT >4-/5 in both flexion and extension in order to return to previous functional mobility. 04/05/25 - Improving, flexion 4/5, extension 3+/5 LTG Duration 06/05/25 Two Impairment Significant limitations in right knee flexion (AROM 29? ) Short Term Goal (STG Pt to demonstrate improvement in right knee flexion to ) >90? STG Duration Met Usp Goal (LTG) Pt to improve active right knee flexion to >120? in order to return to prior level of function 04/05/25 - AROM 119?, PROM 127? LTG Duration 06/05/25 One Impairment Pt does not have an appropriate home exercise program Short Term Goal (STG Pt to be independent and compliant with an appropriate ) HEP STG Duration Met Assessment Summary Assessment Pt improved reciprocal stepping decrease UE support descend 5-6 steps, no UE support ascending. Was able to asc/desc uneven gravel incline/decline outside with very little compensations noted on R knee. Was able to complete LAQ with 4# leg wt tactile cue for TKE target range and initiated quick stepping to allow decreased compensation and quad/HS co support to maintain knee flexion under dynamic mobility with no pain just states not use to it. He improves walking nat and gait phase patterning leaving today. Physical Therapy Plan Frequency and Duration Frequency of 2x/Week Treatment Plan of Care Start 04/05/25 Date Plan of Care End 06/05/25 Date Therapeutic Interventions Therapeutic Balance Training,Coordination Training,Gait Training, Interventions Home Exercise Program,Joint Mobilizations,Manual Therapy,Neuromuscular Re-education,Patient/Caregiver Education,Self-Care/Home Management,Soft Tissue Mobilization,Taping,Therapeutic Activities,Therapeutic Exercises Modalities Cold Pack/Ice Massage,Electric Stimulation,Hot Packs, Ultrasound Next Visit Focus/Plan Next Note Type Treatment Note Next Visit Plan Next: 1approved visits remaining, Check if got more approved visits. Prog note by 05/10/25 (based off 30 days). Continue TKE and step downs off 3in step. Support return to uneven trail walking. Continue functional strengthening R knee mechanics gait so can perform walking downhill > up hill with LRAD and fluid motion. Continue stretching (gastroc/soleus for DF support). POC: R Knee mobility, strengthening, flexibility, gait
--- NOTE | 2025-05-10 17:46 | PT.OTN ---
Addendum entered and electronically signed by Abraham Choudhury, PT 05/11/25 10:42: PT direct supervision and direction to student PT Marvin Martinez throughout session Original Note: Current Diagnoses Pain in right knee (05/10/25) Stiffness of right knee, not elsewhere classified (05/10/25) Other abnormalities of gait and mobility (05/10/25) Displaced comminuted fracture of right patella, subsequent encounter for closed fracture with routine healing (05/10/25) Physical Therapy Treatment Note PT-OP-A Visit Information Start: 02/09/25 15:48 Freq: Status: Active Protocol: Document 05/10/25 17:00 LFG (Rec: 05/10/25 16:16 LFG [id number]) Out-Patient Physical Therapy Visit Information Visit Information Visit Type Treatment Note Visit Start Time 17:00 Visit Stop Time 17:46 Visit Number 24 Number of MATERIALS RESEARCH ENGINEER Visits 0 PT-OP-B Current Condition Start: 02/09/25 15:48 Freq: Status: Active Protocol: Document 02/09/25 12:20 DCW (Rec: 02/09/25 16:00 DCW [id number]) Current Condition History of Current Condition Onset Date November, Current Complaints Right knee pain, stiffness s/p patellar fracture, tendon rupture History of Current Pt is a 64 year old male presenting to skilled therapy Condition six weeks s/p patellar tendon repair, eight weeks total s/p initial injury. Pt reports he was in [facility] in November, visiting his daughter. Attempted to go down the steps in front of her house, slipped on ice, and landed very hard directly on his right knee on a concrete slab. Pt reports that bottom 10% of his patella was broken off, resulting in a retraction of his quad tendon and most of his patella up his thigh. Notes he had a surgical repair, the avulsion was too small to save, so it was removed from the patella tendon, and then the remaining patella was smoothed out , and the patellar tendon waswoven up through three hols drilled into the patella. Was locked into full extension for six weeks following surgery. Had a follow -up with the surgeon on 02/06/25, and his brace was unlocked from 0-50?. Notes he currently has no restrictions, the brace is locked at 50? just in case theres a fall. Currently using a LBQC for assistance ambulating. Pt reports surgeon wants his knee at 90? flexion two weeks from now, and 120? flexion in one month. Admits knee just feels really stiff, he is unable to flex far enough to feel much pain. PT-OP-C Subjective Start: 02/09/25 15:48 Freq: Status: Active Protocol: Document 05/10/25 17:00 LFG (Rec: 05/10/25 17:04 LFG [id number]) OP-PT Subjective Patient Comments Patient Comments Pt reports feeling walking on trails better, walked about 2 miles but still has trouble doing down steps and R quad weakness. Has been doing frequent low-mid level hiking on uneven surfaces. Will be traveling to [facility] for the next few weeks and will be back to therapy in May. PT-OP-F Manual Assessment Start: 02/09/25 15:48 Freq: Status: Active Protocol: Document 04/05/25 13:50 DCW (Rec: 04/05/25 14:53 DCW [id number]) Manual Assessments Joint Mobility Assessment Joint Mobility Substantial improvement with mobility of left knee Assessment joint. Mild limitations with mobility secondary to quad tone and decreased patella mobility PT-OP-J Posture/Palpation/Skin Start: 02/09/25 15:48 Freq: Status: Active Protocol: Document 02/17/25 10:47 SP (Rec: 02/17/25 16:04 SP [id number]) Skin Assessment Circumference Measurement 3 Location Right knee 6 cm superior to joint line Measurement ( 50.1 Centimeters) Comments Left = 47.5 cm 2 Location Right knee joint line Measurement ( 47.0 Centimeters) Comments Left = 44.8 cm 1 Location Right knee 6 cm inferior to joint line Measurement ( 34.8 Centimeters) Comments Left = 43.1 cm PT-OP-K Range of Motion Start: 02/09/25 15:48 Freq: Status: Active Protocol: Document 04/05/25 13:50 DCW (Rec: 04/05/25 14:53 DCW [id number]) Knee Goniometric Range of Motion Knee Right Patient Position Supine Flexion Active ( 119 degrees) Flexion Passive ( 127 degrees) Extension Active ( 0 degrees) Extension Passive ( 0 degrees) Left Knee ROM WFL Yes Patient Position Supine Flexion Active ( 130 degrees) Extension Active ( 0 degrees) PT-OP-M Strength Start: 02/09/25 15:48 Freq: Status: Active Protocol: Document 04/05/25 13:50 DCW (Rec: 04/05/25 14:54 DCW [id number]) Knee Strength Knee Manual Muscle Testing Right Flexion (S2) 4 Good Extension (L3) 3+ Fair+ Left Flexion (S2) 5 Normal Extension (L3) 5 Normal PT-OP-Q Treatments Start: 02/09/25 15:48 Freq: Status: Active Protocol: Document 05/10/25 17:00 LFG (Rec: 05/10/25 17:54 LFG [id number]) Cardio Equipment Recumbent Bicycle Duration (Minutes) 6 Resistance 5 Seat Position 4>5 Gym Equipment Shuttle Recovery unilateral squat Details Focus on strengthening at end-range extension 20?-40? Resistance 50# Shuttle Recovery Stable Platform Reps/Time 3x10, 1x20 Bilateral Squats Resistance 100# 4 navy Shuttle Recovery Stable Platform Reps/Time x15 cues for not locking out Therapeutic Exercises Sitting Exercises Leg extensions Sitting Exercise Leg extension machine - attempted too hard Name Side right Resistance 2 -> 1 attempted Comments able to do 1 eccentric rep LAQ Sitting Exercise Long arc quad Name Side right Resistance 0, 2# leg wt Equipment Used mat table Reps/Minutes 15x, 15x Comments cues for pause at TKE and slow ecc control Standing Exercises Bunge cords walking Standing Exercise Bungee/band bwk/fwd walking - slow and controlled Name Side bilateral Resistance (2 blk, 1 blue) -> (white bungee cord) Reps/Minutes ~10 laps Comments using both legs but putting more weight/making R LE do more of the work, Isometric SL sliders Standing Exercise Isometric SL balance - while other foot slides bwd/45 Name deg to side Side right Reps/Minutes 15x each direction Comments cues to maintain knee bent TKE Standing Exercise TKE Name Side right Resistance L4 TB Equipment Used BUE's railing in front of body, TB above knee anchored bit abv knee height Reps/Minutes 15-30 reps Comments cues for slow pace, PT-OP-T Assessment and Plan Start: 02/09/25 15:48 Freq: Status: Active Protocol: Document 05/10/25 17:00 LFG (Rec: 05/10/25 16:18 LFG [id number]) Physical Therapy Assessment Goals Three Impairment Right knee weakness with flexion (2-/5) and extension ( 3/5) Supervisor Parking Lot Goal (LTG) Pt to demonstrate right knee MMT >4-/5 in both flexion and extension in order to return to previous functional mobility. 04/05/25 - Improving, flexion 4/5, extension 3+/5 LTG Duration 06/05/25 Two Impairment Significant limitations in right knee flexion (AROM 29? ) Short Term Goal (STG Pt to demonstrate improvement in right knee flexion to ) >90? STG Duration Met Supervisor Parking Lot Goal (LTG) Pt to improve active right knee flexion to >120? in order to return to prior level of function 04/05/25 - AROM 119?, PROM 127? LTG Duration 06/05/25 One Impairment Pt does not have an appropriate home exercise program Short Term Goal (STG Pt to be independent and compliant with an appropriate ) HEP STG Duration Met Assessment Summary Assessment Pt tolerated todays session well today demonstrating good body control and awareness in the LE but with persistent R quad weakness especially mid ROM of knee extension. Pt reported mild patellar discomfort during eccentric phase of LAQ. Continue to focus on strengthening R LE. Physical Therapy Plan Frequency and Duration Frequency of 2x/Week Treatment Plan of Care Start 04/05/25 Date Plan of Care End 06/05/25 Date Therapeutic Interventions Therapeutic Balance Training,Coordination Training,Gait Training, Interventions Home Exercise Program,Joint Mobilizations,Manual Therapy,Neuromuscular Re-education,Patient/Caregiver Education,Self-Care/Home Management,Soft Tissue Mobilization,Taping,Therapeutic Activities,Therapeutic Exercises Modalities Cold Pack/Ice Massage,Electric Stimulation,Hot Packs, Ultrasound Next Visit Focus/Plan Next Note Type Treatment Note Next Visit Plan Next: More visits have been approved. Continue TKE and step downs off 3in step. Support return to uneven trail walking. Continue functional strengthening R knee mechanics gait so can perform walking downhill > up hill with LRAD and fluid motion. Continue stretching ( gastroc/soleus for DF support). POC: R Knee mobility, strengthening, flexibility, gait
--- NOTE | 2025-05-11 10:38 | PT.OTN ---
Current Diagnoses Pain in right knee (05/10/25) Stiffness of right knee, not elsewhere classified (05/10/25) Other abnormalities of gait and mobility (05/10/25) Displaced comminuted fracture of right patella, subsequent encounter for closed fracture with routine healing (05/10/25) Physical Therapy Treatment Note PT-OP-A Visit Information Start: 02/09/25 15:48 Freq: Status: Active Protocol: Document 05/10/25 17:00 LFG (Rec: 05/10/25 16:16 LFG [id number]) Out-Patient Physical Therapy Visit Information Visit Information Visit Type Treatment Note Visit Start Time 17:00 Visit Stop Time 17:46 Visit Number 24 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 Pt reports he was in [facility] in November, visiting his daughter. Attempted to go down the steps in front of her house, slipped on ice, and landed very hard directly on his right knee on a concrete slab. Pt reports that bottom 10% of his patella was broken off, resulting in a retraction of his quad tendon and most of his patella up his thigh. Notes he had a surgical repair, the avulsion was too small to save, so it was removed from the patella tendon, and then the remaining patella was smoothed out , and the patellar tendon waswoven up through three hols drilled into the patella. Was locked into full extension for six weeks following surgery. Had a follow -up with the surgeon on 02/06/25, and his brace was unlocked from 0-50?. Notes he currently has no restrictions, the brace is locked at 50? just in case theres a fall. Currently using a LBQC for assistance ambulating. Pt reports surgeon wants his knee at 90? flexion two weeks from now, and 120? flexion in one month. Admits knee just feels really stiff, he is unable to flex far enough to feel much pain. PT-OP-C Subjective Start: 02/09/25 15:48 Freq: Status: Active Protocol: Document 05/10/25 17:00 LFG (Rec: 05/10/25 17:04 LFG [id number]) OP-PT Subjective Patient Comments Patient Comments Pt reports feeling walking on trails better, walked about 2 miles but still has trouble doing down steps and R quad weakness. Has been doing frequent low-mid level hiking on uneven surfaces. Will be traveling to [facility] for the next few weeks and will be back to therapy in May. PT-OP-F Manual Assessment Start: 02/09/25 15:48 Freq: Status: Active Protocol: Document 04/05/25 13:50 DCW (Rec: 04/05/25 14:53 DCW [id number]) Manual Assessments Joint Mobility Assessment Joint Mobility Substantial improvement with mobility of left knee Assessment joint. Mild limitations with mobility secondary to quad tone and decreased patella mobility PT-OP-J Posture/Palpation/Skin Start: 02/09/25 15:48 Freq: Status: Active Protocol: Document 02/17/25 10:47 SP (Rec: 02/17/25 16:04 SP [id number]) Skin Assessment Circumference Measurement 3 Location Right knee 6 cm superior to joint line Measurement ( 50.1 Centimeters) Comments Left = 47.5 cm 2 Location Right knee joint line Measurement ( 47.0 Centimeters) Comments Left = 44.8 cm 1 Location Right knee 6 cm inferior to joint line Measurement ( 34.8 Centimeters) Comments Left = 43.1 cm PT-OP-K Range of Motion Start: 02/09/25 15:48 Freq: Status: Active Protocol: Document 04/05/25 13:50 DCW (Rec: 04/05/25 14:53 DCW [id number]) Knee Goniometric Range of Motion Knee Right Patient Position Supine Flexion Active ( 119 degrees) Flexion Passive ( 127 degrees) Extension Active ( 0 degrees) Extension Passive ( 0 degrees) Left Knee ROM WFL Yes Patient Position Supine Flexion Active ( 130 degrees) Extension Active ( 0 degrees) PT-OP-M Strength Start: 02/09/25 15:48 Freq: Status: Active Protocol: Document 04/05/25 13:50 DCW (Rec: 04/05/25 14:54 DCW [id number]) Knee Strength Knee Manual Muscle Testing Right Flexion (S2) 4 Good Extension (L3) 3+ Fair+ Left Flexion (S2) 5 Normal Extension (L3) 5 Normal PT-OP-Q Treatments Start: 02/09/25 15:48 Freq: Status: Active Protocol: Document 05/10/25 17:00 LFG (Rec: 05/10/25 17:54 LFG [id number]) Cardio Equipment Recumbent Bicycle Duration (Minutes) 6 Resistance 5 Seat Position 4>5 Gym Equipment Shuttle Recovery unilateral squat Details Focus on strengthening at end-range extension 20?-40? Resistance 50# Shuttle Recovery Stable Platform Reps/Time 3x10, 1x20 Bilateral Squats Resistance 100# 4 navy Shuttle Recovery Stable Platform Reps/Time x15 cues for not locking out Therapeutic Exercises Sitting Exercises Leg extensions Sitting Exercise Leg extension machine - attempted too hard Name Side right Resistance 2 -> 1 attempted Comments able to do 1 eccentric rep LAQ Sitting Exercise Long arc quad Name Side right Resistance 0, 2# leg wt Equipment Used mat table Reps/Minutes 15x, 15x Comments cues for pause at TKE and slow ecc control Standing Exercises Bunge cords walking Standing Exercise Bungee/band bwk/fwd walking - slow and controlled Name Side bilateral Resistance (2 blk, 1 blue) -> (white bungee cord) Reps/Minutes ~10 laps Comments using both legs but putting more weight/making R LE do more of the work, Isometric SL sliders Standing Exercise Isometric SL balance - while other foot slides bwd/45 Name deg to side Side right Reps/Minutes 15x each direction Comments cues to maintain knee bent TKE Standing Exercise TKE Name Side right Resistance L4 TB Equipment Used BUE's railing in front of body, TB above knee anchored bit abv knee height Reps/Minutes 15-30 reps Comments cues for slow pace, PT-OP-T Assessment and Plan Start: 02/09/25 15:48 Freq: Status: Active Protocol: Document 05/10/25 17:00 LFG (Rec: 05/10/25 16:18 LFG [id number]) Physical Therapy Assessment Goals Three Impairment Right knee weakness with flexion (2-/5) and extension ( 3/5) Bank Manager Goal (LTG) Pt to demonstrate right knee MMT >4-/5 in both flexion and extension in order to return to previous functional mobility. 04/05/25 - Improving, flexion 4/5, extension 3+/5 LTG Duration 06/05/25 Two Impairment Significant limitations in right knee flexion (AROM 29? ) Short Term Goal (STG Pt to demonstrate improvement in right knee flexion to ) >90? STG Duration Met Bank Manager Goal (LTG) Pt to improve active right knee flexion to >120? in order to return to prior level of function 04/05/25 - AROM 119?, PROM 127? LTG Duration 06/05/25 One Impairment Pt does not have an appropriate home exercise program Short Term Goal (STG Pt to be independent and compliant with an appropriate ) HEP STG Duration Met Assessment Summary Assessment Pt tolerated todays session well today demonstrating good body control and awareness in the LE but with persistent R quad weakness especially mid ROM of knee extension. Pt reported mild patellar discomfort during eccentric phase of LAQ. Continue to focus on strengthening R LE. Physical Therapy Plan Frequency and Duration Frequency of 2x/Week Treatment Plan of Care Start 04/05/25 Date Plan of Care End 06/05/25 Date Therapeutic Interventions Therapeutic Balance Training,Coordination Training,Gait Training, Interventions Home Exercise Program,Joint Mobilizations,Manual Therapy,Neuromuscular Re-education,Patient/Caregiver Education,Self-Care/Home Management,Soft Tissue Mobilization,Taping,Therapeutic Activities,Therapeutic Exercises Modalities Cold Pack/Ice Massage,Electric Stimulation,Hot Packs, Ultrasound Next Visit Focus/Plan Next Note Type Treatment Note Next Visit Plan Next: More visits have been approved. Continue TKE and step downs off 3in step. Support return to uneven trail walking. Continue functional strengthening R knee mechanics gait so can perform walking downhill > up hill with LRAD and fluid motion. Continue stretching ( gastroc/soleus for DF support). POC: R Knee mobility, strengthening, flexibility, gait
--- NOTE | 2025-05-30 13:46 | PT.OTN ---
Current Diagnoses Pain in right knee (05/30/25) Stiffness of right knee, not elsewhere classified (05/30/25) Other abnormalities of gait and mobility (05/30/25) Displaced comminuted fracture of right patella, subsequent encounter for closed fracture with routine healing (05/30/25) Physical Therapy Treatment Note PT-OP-A Visit Information Start: 02/09/25 15:48 Freq: Status: Active Protocol: Document 05/30/25 13:00 DCW (Rec: 05/30/25 13:46 DCW [id number]) Out-Patient Physical Therapy Visit Information Visit Information Visit Type Progress Note Visit Start Time 13:00 Visit Stop Time 13:45 Visit Number 25 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 Pt reports he was in [facility] in November, visiting his daughter. Attempted to go down the steps in front of her house, slipped on ice, and landed very hard directly on his right knee on a concrete slab. Pt reports that bottom 10% of his patella was broken off, resulting in a retraction of his quad tendon and most of his patella up his thigh. Notes he had a surgical repair, the avulsion was too small to save, so it was removed from the patella tendon, and then the remaining patella was smoothed out , and the patellar tendon waswoven up through three hols drilled into the patella. Was locked into full extension for six weeks following surgery. Had a follow -up with the surgeon on 02/06/25, and his brace was unlocked from 0-50?. Notes he currently has no restrictions, the brace is locked at 50? just in case theres a fall. Currently using a LBQC for assistance ambulating. Pt reports surgeon wants his knee at 90? flexion two weeks from now, and 120? flexion in one month. Admits knee just feels really stiff, he is unable to flex far enough to feel much pain. PT-OP-C Subjective Start: 02/09/25 15:48 Freq: Status: Active Protocol: Document 05/30/25 13:00 DCW (Rec: 05/30/25 13:46 DCW [id number]) OP-PT Subjective Patient Comments Patient Comments Pt admits his strength is still lacking, but he has been much better with daily mobility. Has been out hiking in the [place], went about 1-1.5 miles today. Was able to get down on his hands and knee doing housework when recently visiting his daughter. PT-OP-F Manual Assessment Start: 02/09/25 15:48 Freq: Status: Active Protocol: Document 04/05/25 13:50 DCW (Rec: 04/05/25 14:53 DCW [id number]) Manual Assessments Joint Mobility Assessment Joint Mobility Substantial improvement with mobility of left knee Assessment joint. Mild limitations with mobility secondary to quad tone and decreased patella mobility PT-OP-J Posture/Palpation/Skin Start: 02/09/25 15:48 Freq: Status: Active Protocol: Document 02/17/25 10:47 SP (Rec: 02/17/25 16:04 SP [id number]) Skin Assessment Circumference Measurement 3 Location Right knee 6 cm superior to joint line Measurement ( 50.1 Centimeters) Comments Left = 47.5 cm 2 Location Right knee joint line Measurement ( 47.0 Centimeters) Comments Left = 44.8 cm 1 Location Right knee 6 cm inferior to joint line Measurement ( 34.8 Centimeters) Comments Left = 43.1 cm PT-OP-K Range of Motion Start: 02/09/25 15:48 Freq: Status: Active Protocol: Document 04/05/25 13:50 DCW (Rec: 04/05/25 14:53 DCW [id number]) Knee Goniometric Range of Motion Knee Right Patient Position Supine Flexion Active ( 119 degrees) Flexion Passive ( 127 degrees) Extension Active ( 0 degrees) Extension Passive ( 0 degrees) Left Knee ROM WFL Yes Patient Position Supine Flexion Active ( 130 degrees) Extension Active ( 0 degrees) PT-OP-M Strength Start: 02/09/25 15:48 Freq: Status: Active Protocol: Document 04/05/25 13:50 DCW (Rec: 04/05/25 14:54 DCW [id number]) Knee Strength Knee Manual Muscle Testing Right Flexion (S2) 4 Good Extension (L3) 3+ Fair+ Left Flexion (S2) 5 Normal Extension (L3) 5 Normal PT-OP-Q Treatments Start: 02/09/25 15:48 Freq: Status: Active Protocol: Document 05/30/25 13:00 DCW (Rec: 05/30/25 13:46 [facility] [id number]) Cardio Equipment Recumbent Bicycle Duration (Minutes) 6 Resistance 8 Seat Position 4 Gym Equipment Shuttle Recovery unilateral squat Details Focus on strengthening at end-range extension 20?-40? Resistance 62# (2 navy) Shuttle Recovery Stable Platform Reps/Time 2x17, 1x20 Bilateral Squats Details Focus on strengthening at end-range extension 20?-40? Resistance 125# 4 navy Shuttle Recovery Stable Platform Reps/Time x15 Therapeutic Exercises Sitting Exercises LAQ Sitting Exercise Long arc quad Name Side right Resistance 2#->4#->6# Reps/Minutes x20 Hamstring Sitting Exercise Hamstring curl Name Side bilateral Resistance Lv 4 Standing Exercises Isometric SL sliders Standing Exercise Sliders - abduction, extension Name Side bilateral Resistance @ rail Equipment Used Furniture slider PT-OP-T Assessment and Plan Start: 02/09/25 15:48 Freq: Status: Active Protocol: Document 05/30/25 13:00 DCW (Rec: 05/30/25 13:46 [facility] [id number]) Physical Therapy Assessment Impairments Impairments Activity Tolerance,Balance,Edema,Functional Activities, Functional Mobility,Gait,Integument,Pain,ROM,Soft Tissue Mobility,Strength,Tone Goals Three Impairment Right knee weakness with flexion (2-/5) and extension ( 3/5) Golf Shoe Spike Assembler Goal (LTG) Pt to demonstrate right knee MMT >4-/5 in both flexion and extension in order to return to previous functional mobility. 04/05/25 - Improving, flexion 4/5, extension 3+/5 LTG Duration 06/05/25 Two Impairment Significant limitations in right knee flexion (AROM 29? ) Short Term Goal (STG Pt to demonstrate improvement in right knee flexion to ) >90? STG Duration Met Assisted Goal (LTG) Pt to improve active right knee flexion to >120? in order to return to prior level of function 04/05/25 - AROM 119?, PROM 127? LTG Duration 06/05/25 One Impairment Pt does not have an appropriate home exercise program Short Term Goal (STG Pt to be independent and compliant with an appropriate ) HEP STG Duration Met Assessment Summary Assessment Pt progressing well, advancing toward goals. Pt demonstrates improving quality of movement and improved quad control. Still has slight difficulty descending stairs. Focus on quad strength and functional mobility. Physical Therapy Plan Frequency and Duration Frequency of 2x/Week Treatment Plan of Care Start 04/05/25 Date Plan of Care End 06/05/25 Date Therapeutic Interventions Therapeutic Balance Training,Coordination Training,Gait Training, Interventions Home Exercise Program,Joint Mobilizations,Manual Therapy,Neuromuscular Re-education,Patient/Caregiver Education,Self-Care/Home Management,Soft Tissue Mobilization,Taping,Therapeutic Activities,Therapeutic Exercises Modalities Cold Pack/Ice Massage,Electric Stimulation,Hot Packs, Ultrasound Next Visit Focus/Plan Next Note Type Treatment Note Next Visit Plan Next: More visits have been approved. Continue TKE and step downs off 3in step. Support return to uneven trail walking. Continue functional strengthening R knee mechanics gait so can perform walking downhill > up hill with LRAD and fluid motion. Continue stretching ( gastroc/soleus for DF support). POC: R Knee mobility, strengthening, flexibility, gait
--- NOTE | 2025-06-01 11:36 | PT.OTN ---
Current Diagnoses Pain in right knee (06/01/25) Stiffness of right knee, not elsewhere classified (06/01/25) Other abnormalities of gait and mobility (06/01/25) Displaced comminuted fracture of right patella, subsequent encounter for closed fracture with routine healing (06/01/25) Physical Therapy Treatment Note PT-OP-A Visit Information Start: 02/09/25 15:48 Freq: Status: Active Protocol: Document 06/01/25 10:44 SP (Rec: 06/01/25 11:37 SP [id number]) Out-Patient Physical Therapy Visit Information Visit Information Visit Type Treatment Note Visit Start Time 10:45 Visit Stop Time 11:36 Visit Number 26 (/ visits today approved, PN by 06/30/25) Number of SERVICE ORDER EXPEDITER Visits 1 PT-OP-B Current Condition Start: 02/09/25 15:48 Freq: Status: Active Protocol: Document 02/09/25 12:20 DCW (Rec: 02/09/25 16:00 DCW [id number]) Current Condition History of Current Condition Onset Date November, Current Complaints Right knee pain, stiffness s/p patellar fracture, tendon rupture History of Current Pt is a 64 year old male presenting to skilled therapy Condition six weeks s/p patellar tendon repair, eight weeks total s/p initial injury. Pt reports he was in [facility] in November, visiting his daughter. Attempted to go down the steps in front of her house, slipped on ice, and landed very hard directly on his right knee on a concrete slab. Pt reports that bottom 10% of his patella was broken off, resulting in a retraction of his quad tendon and most of his patella up his thigh. Notes he had a surgical repair, the avulsion was too small to save, so it was removed from the patella tendon, and then the remaining patella was smoothed out , and the patellar tendon waswoven up through three hols drilled into the patella. Was locked into full extension for six weeks following surgery. Had a follow -up with the surgeon on 02/06/25, and his brace was unlocked from 0-50?. Notes he currently has no restrictions, the brace is locked at 50? just in case theres a fall. Currently using a LBQC for assistance ambulating. Pt reports surgeon wants his knee at 90? flexion two weeks from now, and 120? flexion in one month. Admits knee just feels really stiff, he is unable to flex far enough to feel much pain. PT-OP-C Subjective Start: 02/09/25 15:48 Freq: Status: Active Protocol: Document 06/01/25 10:44 SP (Rec: 06/01/25 11:37 SP [id number]) OP-PT Subjective Patient Comments Patient Comments Pt reports has felt stronger after coming back from vacation. Able to do more resistance last tx. Did alot of activity at [employer] including kneeling iwth knee pads, building things coordinated activities to limited reps squats and uneven hikes 1-2 miles over weekend and yesterday more flat will again today. Still sees weakness down hills. 6 still challenging fluid step down. PT-OP-F Manual Assessment Start: 02/09/25 15:48 Freq: Status: Active Protocol: Document 04/05/25 13:50 DCW (Rec: 04/05/25 14:53 DCW [id number]) Manual Assessments Joint Mobility Assessment Joint Mobility Substantial improvement with mobility of left knee Assessment joint. Mild limitations with mobility secondary to quad tone and decreased patella mobility PT-OP-J Posture/Palpation/Skin Start: 02/09/25 15:48 Freq: Status: Active Protocol: Document 02/17/25 10:47 SP (Rec: 02/17/25 16:04 SP [id number]) Skin Assessment Circumference Measurement 3 Location Right knee 6 cm superior to joint line Measurement ( 50.1 Centimeters) Comments Left = 47.5 cm 2 Location Right knee joint line Measurement ( 47.0 Centimeters) Comments Left = 44.8 cm 1 Location Right knee 6 cm inferior to joint line Measurement ( 34.8 Centimeters) Comments Left = 43.1 cm PT-OP-K Range of Motion Start: 02/09/25 15:48 Freq: Status: Active Protocol: Document 04/05/25 13:50 DCW (Rec: 04/05/25 14:53 DCW [id number]) Knee Goniometric Range of Motion Knee Right Patient Position Supine Flexion Active ( 119 degrees) Flexion Passive ( 127 degrees) Extension Active ( 0 degrees) Extension Passive ( 0 degrees) Left Knee ROM WFL Yes Patient Position Supine Flexion Active ( 130 degrees) Extension Active ( 0 degrees) PT-OP-M Strength Start: 02/09/25 15:48 Freq: Status: Active Protocol: Document 04/05/25 13:50 DCW (Rec: 04/05/25 14:54 DCW [id number]) Knee Strength Knee Manual Muscle Testing Right Flexion (S2) 4 Good Extension (L3) 3+ Fair+ Left Flexion (S2) 5 Normal Extension (L3) 5 Normal PT-OP-Q Treatments Start: 02/09/25 15:48 Freq: Status: Active Protocol: Document 06/01/25 10:44 SP (Rec: 06/01/25 11:37 SP [id number]) Gym Equipment Shuttle Recovery unilateral squat Details Focus on strengthening at end-range extension 20?-40? Resistance 62# (2 navy) Shuttle Recovery Stable Platform Reps/Time fatigues rep 8 on R but completed full 20 reps, ok 20 reps L Bilateral Squats Details Focus on strengthening at end-range extension 20?-40? Resistance 125# 4 navy 1 teal band Shuttle Recovery Stable Platform Reps/Time 20 Therapeutic Exercises Sidelying Exercises adduction Sidelying Exercise added to HEP Name Side right Resistance AROM, 5# leg wt Reps/Minutes 5 reps each resistance Comments cued TKE vs slight knee flexion for adductor and potential VMO Sitting Exercises Leg extensions Sitting Exercise Leg extension machine - attempted too hard Name Side right Resistance 2 -> 1 attempted Comments able to do 1 eccentric rep- 06/01/25 LAQ Sitting Exercise Long arc quad Name Side right Resistance 6#leg wt Reps/Minutes x20 Comments less discomfort more little tension post manual Standing Exercises step down forward Side right Resistance R stance LE, LLE moving Equipment Used Rail support Reps/Minutes 5 reps x2 Comments SERVICE ORDER EXPEDITER medial glide patella- significant decr sub patella irritation flex denys Manual Therapy Treatment Consent Patient gave verbal Yes consent for manual treatment Soft Tissue Mobilization R leg Body Location R distal quad, ITB, patellar tendon Mobilization Type Cross-Friction,Instrument Assisted,Rolling,Sustained Pressure Intensity/Depth Moderate Body Position Hooklying Comments tooling patellar tendon and distal quad into passive stationary flexion Joint Mobilizations Patella Joint R Patella Direction Lat>medial, lateral tilt, rotation Grade III Knee Joint R tib under femur Direction P>A Grade III Comments hooklying, seated strap prox tibia P>A MWM active knee flexion with 6# leg wt on for inferior distraction - good feedback no knee pain. Self-Care/Home Management Treatment Education Patient Education Body Mechanics,Joint Protection,Pain Management Other Education Discussed R patellar glide during LAQ eccentric > concentric self helped after SERVICE ORDER EXPEDITER support. Discussed could inquire with Dr Lawrence if willing to provide needling to lateral patella if can help decreased tension to lateral ITB/lateral quad/while work on strengthening VMO and adductors to support patella and knee mobility to decreased pain into WB flexion RLE. Especially knowing had a good experience with him for his shoulder in the past with instant results. PT-OP-T Assessment and Plan Start: 02/09/25 15:48 Freq: Status: Active Protocol: Document 06/01/25 10:44 SP (Rec: 06/01/25 11:37 SP [id number]) Physical Therapy Assessment Goals Three Impairment Right knee weakness with flexion (2-/5) and extension ( 3/5) Jail Goal (LTG) Pt to demonstrate right knee MMT >4-/5 in both flexion and extension in order to return to previous functional mobility. 04/05/25 - Improving, flexion 4/5, extension 3+/5 LTG Duration 06/05/25 Two Impairment Significant limitations in right knee flexion (AROM 29? ) Short Term Goal (STG Pt to demonstrate improvement in right knee flexion to ) >90? STG Duration Met Newspaper Peddler Goal (LTG) Pt to improve active right knee flexion to >120? in order to return to prior level of function 04/05/25 - AROM 119?, PROM 127? LTG Duration 06/05/25 One Impairment Pt does not have an appropriate home exercise program Short Term Goal (STG Pt to be independent and compliant with an appropriate ) HEP STG Duration Met Assessment Summary Assessment Pt good tolerance to manual today with feedback significant subpatellar decreased pain with provided medial patellar glide more than frictional. Continue R VMO and adductor strengthening R SL for support patella medial tracking for pain reduction sub patella eccentric flexion. Pt could benefit from continue taping again for patella tracking McConnel tape vs Ktaping. Physical Therapy Plan Frequency and Duration Frequency of 2x/Week Treatment Plan of Care Start 04/05/25 Date Plan of Care End 06/05/25 Date Therapeutic Interventions Therapeutic Balance Training,Coordination Training,Gait Training, Interventions Home Exercise Program,Joint Mobilizations,Manual Therapy,Neuromuscular Re-education,Patient/Caregiver Education,Self-Care/Home Management,Soft Tissue Mobilization,Taping,Therapeutic Activities,Therapeutic Exercises Modalities Cold Pack/Ice Massage,Electric Stimulation,Hot Packs, Ultrasound Next Visit Focus/Plan Next Note Type Treatment Note Next Visit Plan Next: Erasmo taping R patella medial glide and medial tilt/lateral gap, Adductor and VMO strengthening . Eccentric R knee flexion step downs off 4>6step. Support return to uneven trail walking downhill. Continue stretching (gastroc/soleus for DF support). POC: R Knee mobility, strengthening, flexibility, gait
--- NOTE | 2025-06-06 11:00 | PT-OP ANOTE ---
Pt did not show to his 06/06/25 appointment. Therapist phoned and left a voicemail reminding pt of next scheduled visit. Pt will need a new POC, but is next scheduled with a MAINTENANCE PLUMBER, so his visit may need to be changed.
--- NOTE | 2025-06-07 16:45 | PT.OPPOC ---
Addendum entered and electronically signed by Abraham Choudhury PT 06/07/25 16:49: PT direct supervision and direction to student PT Marvin Martinez throughout session Original Note: Physical, Occupational & Speech Therapy At [facility] Current Diagnoses Pain in right knee (06/07/25) Stiffness of right knee, not elsewhere classified (06/07/25) Other abnormalities of gait and mobility (06/07/25) Displaced comminuted fracture of right patella, subsequent encounter for closed fracture with routine healing (06/07/25) Visit Care Team Role Provider Type Susu Kemp PA-C Referring Provider Non-Staff Specialty: Orthopedic Surgery Address: [address] [place] [address], [id number] Email: David Lawrence DO Family Provider Physician Primary Care Provider Specialty: Family Practice Address: [address] [place] [address], [id number] Email: Alan Riley DO Attending Provider Non-Staff Specialty: Orthopedics Address: [address] [place] [address], [id number] Email: Plan Of Care PT-OP-B Current Condition Start: 02/09/25 15:48 Freq: Status: Active Protocol: Document 02/09/25 12:20 DCW (Rec: 02/09/25 16:00 DCW [id number]) Current Condition History of Current Condition Onset Date November, Current Complaints Right knee pain, stiffness s/p patellar fracture, tendon rupture History of Current Pt is a 64 year old male presenting to skilled therapy Condition six weeks s/p patellar tendon repair, eight weeks total s/p initial injury. Pt reports he was in [facility] in November, visiting his daughter. Attempted to go down the steps in front of her house, slipped on ice, and landed very hard directly on his right knee on a concrete slab. Pt reports that bottom 10% of his patella was broken off, resulting in a retraction of his quad tendon and most of his patella up his thigh. Notes he had a surgical repair, the avulsion was too small to save, so it was removed from the patella tendon, and then the remaining patella was smoothed out , and the patellar tendon waswoven up through three hols drilled into the patella. Was locked into full extension for six weeks following surgery. Had a follow -up with the surgeon on 02/06/25, and his brace was unlocked from 0-50?. Notes he currently has no restrictions, the brace is locked at 50? just in case theres a fall. Currently using a LBQC for assistance ambulating. Pt reports surgeon wants his knee at 90? flexion two weeks from now, and 120? flexion in one month. Admits knee just feels really stiff, he is unable to flex far enough to feel much pain. PT-OP-T Assessment and Plan Start: 02/09/25 15:48 Freq: Status: Active Protocol: Document 06/07/25 13:50 LFG (Rec: 06/07/25 16:23 LFG [id number]) Physical Therapy Assessment Goals Three Impairment Right knee weakness with flexion (2-/5) and extension ( 3/5) Longterm Goal (LTG) Pt to demonstrate right knee MMT >4-/5 in both flexion and extension in order to return to previous functional mobility. 04/05/25 - Improving, flexion 4/5, extension 3+/5 06/07/25 - Flex: 4+/5 Ext: 4/5 goal MET LTG Duration Met Two Impairment Significant limitations in right knee flexion (AROM 29? ) Short Term Goal (STG Pt to demonstrate improvement in right knee flexion to ) >90? STG Duration Met Clerical Support Specialist Goal (LTG) Pt to improve active right knee flexion to >120? in order to return to prior level of function 04/05/25 - AROM 119?, PROM 127? 06/07/25 - AROM 125, PROM 127 GOAL MET LTG Duration Met One Impairment Pt does not have an appropriate home exercise program Short Term Goal (STG Pt to be independent and compliant with an appropriate ) HEP STG Duration Met Assessment Summary Assessment Patient has met both ROM and LE strength goals. After lazaro tape application pt found therapeutic exercise to be purely working the target muscles without any sxs barriers. Pt progressed resistance significantly post tape application. Reviewed HEP and recommended pt continue LE strengthening and HEP independently and discharging at this time. Pt in agreement with POC. Physical Therapy Plan Frequency and Duration Plan of Care Start 06/07/25 Date Plan of Care End 06/08/25 Date Therapeutic Interventions Therapeutic Balance Training,Coordination Training,Gait Training, Interventions Home Exercise Program,Joint Mobilizations,Manual Therapy,Neuromuscular Re-education,Patient/Caregiver Education,Self-Care/Home Management,Soft Tissue Mobilization,Taping,Therapeutic Activities,Therapeutic Exercises Modalities Cold Pack/Ice Massage,Electric Stimulation,Hot Packs, Ultrasound Next Visit Focus/Plan Next Note Type Discharge Summary Next Visit Plan Follow HEP independently Plan of Care Dates Plan of Care Start Date 06/07/25 Plan of Care End Date 06/08/25 Electronically Signed by: Marvin Lau, PT 06/07/25 0890 If you are in agreement with this Plan of Care, please return a signed and dated copy. I have reviewed this Plan of Care and certify that the skilled therapy services above are required to meet the patient?s needs. Physician Signature Date Printed Name and Credentials Clinical Instructor Signature Printed Name and Credentials
--- NOTE | 2025-06-07 16:46 | PT.OTN ---
Addendum entered and electronically signed by Abraham Choudhury, PT 06/07/25 16:49: PT direct supervision and direction to student PT Marvin Martinez throughout session Original Note: Current Diagnoses Pain in right knee (06/07/25) Stiffness of right knee, not elsewhere classified (06/07/25) Other abnormalities of gait and mobility (06/07/25) Displaced comminuted fracture of right patella, subsequent encounter for closed fracture with routine healing (06/07/25) Physical Therapy Treatment Note PT-OP-A Visit Information Start: 02/09/25 15:48 Freq: Status: Active Protocol: Document 06/07/25 13:50 LFG (Rec: 06/07/25 14:37 LFG [id number]) Out-Patient Physical Therapy Visit Information Visit Information Visit Type Discharge Summary Visit Start Time 13:50 Visit Stop Time 14:26 Visit Number 27 Number of ACUTE SPECIALIST Visits 0 PT-OP-B Current Condition Start: 02/09/25 15:48 Freq: Status: Active Protocol: Document 02/09/25 12:20 DCW (Rec: 02/09/25 16:00 DCW [id number]) Current Condition History of Current Condition Onset Date November, Current Complaints Right knee pain, stiffness s/p patellar fracture, tendon rupture History of Current Pt is a 64 year old male presenting to skilled therapy Condition six weeks s/p patellar tendon repair, eight weeks total s/p initial injury. Pt reports he was in [facility] in November, visiting his daughter. Attempted to go down the steps in front of her house, slipped on ice, and landed very hard directly on his right knee on a concrete slab. Pt reports that bottom 10% of his patella was broken off, resulting in a retraction of his quad tendon and most of his patella up his thigh. Notes he had a surgical repair, the avulsion was too small to save, so it was removed from the patella tendon, and then the remaining patella was smoothed out , and the patellar tendon waswoven up through three hols drilled into the patella. Was locked into full extension for six weeks following surgery. Had a follow -up with the surgeon on 02/06/25, and his brace was unlocked from 0-50?. Notes he currently has no restrictions, the brace is locked at 50? just in case theres a fall. Currently using a LBQC for assistance ambulating. Pt reports surgeon wants his knee at 90? flexion two weeks from now, and 120? flexion in one month. Admits knee just feels really stiff, he is unable to flex far enough to feel much pain. PT-OP-C Subjective Start: 02/09/25 15:48 Freq: Status: Active Protocol: Document 06/07/25 13:50 LFG (Rec: 06/07/25 14:37 LFG [id number]) OP-PT Subjective Patient Comments Patient Comments Apologetic for forgetting and missing yesterdays appointment, thought it was Thursday. Walking 1-1.5 mile uneven ground daily. Only lingering complaints are of going downstairs but even that has improved. PT-OP-F Manual Assessment Start: 02/09/25 15:48 Freq: Status: Active Protocol: Document 04/05/25 13:50 DCW (Rec: 04/05/25 14:53 DCW [id number]) Manual Assessments Joint Mobility Assessment Joint Mobility Substantial improvement with mobility of left knee Assessment joint. Mild limitations with mobility secondary to quad tone and decreased patella mobility PT-OP-J Posture/Palpation/Skin Start: 02/09/25 15:48 Freq: Status: Active Protocol: Document 02/17/25 10:47 SP (Rec: 02/17/25 16:04 SP [id number]) Skin Assessment Circumference Measurement 3 Location Right knee 6 cm superior to joint line Measurement ( 50.1 Centimeters) Comments Left = 47.5 cm 2 Location Right knee joint line Measurement ( 47.0 Centimeters) Comments Left = 44.8 cm 1 Location Right knee 6 cm inferior to joint line Measurement ( 34.8 Centimeters) Comments Left = 43.1 cm PT-OP-K Range of Motion Start: 02/09/25 15:48 Freq: Status: Active Protocol: Document 06/07/25 13:50 LFG (Rec: 06/07/25 12:59 LFG [id number]) Knee Goniometric Range of Motion Knee Right Patient Position Supine Flexion Active ( 125 degrees) Flexion Passive ( 127 degrees) Extension Active ( 0 degrees) Extension Passive ( 0 degrees) Left Flexion Active ( 130 degrees) Extension Active ( 0 degrees) PT-OP-M Strength Start: 02/09/25 15:48 Freq: Status: Active Protocol: Document 06/07/25 13:50 LFG (Rec: 06/07/25 13:51 LFG [id number]) Knee Strength Knee Manual Muscle Testing Right Flexion (S2) 4+ Good+ Extension (L3) 4 Good Left Flexion (S2) 5 Normal Extension (L3) 5 Normal PT-OP-Q Treatments Start: 02/09/25 15:48 Freq: Status: Active Protocol: Document 06/07/25 13:50 LFG (Rec: 06/07/25 14:37 LFG [id number]) Therapeutic Exercises Sidelying Exercises adduction Sidelying Exercise Side lying add - tried with knee straight and slightly Name bent Side right Reps/Minutes x12 Comments reported feeling only adductor w/ knee stratight but more quad w/ knee bend Sitting Exercises LAQ Sitting Exercise Long arc quad Name Side right Resistance 5#, 8#, 13# Reps/Minutes x10, x20 Comments no discomfort of tingling, pure muscle working Standing Exercises step down forward Standing Exercise step ups + downs - review Name Side right Resistance R stance LE, LLE moving Equipment Used Rail support Reps/Minutes x15 Stationary lunge Standing Exercise Stationary lung - band above/below R knee Name Side right Resistance L5 Equipment Used Railing anchored band Reps/Minutes x10 Comments cues to keep band from moving knee out, not full ROM lunge Manual Therapy Treatment Taping R knee Treatment Focus Medial pull of patella Type of Tape Erasmo Comments Pt reported the muscle working w/o any tingling or pain sxs and like they can exercise till muscle fatigue Self-Care/Home Management Treatment Education Patient Education Home Exercise Program Other Education Patient was given HEP to keep up quad strengthening PT-OP-T Assessment and Plan Start: 02/09/25 15:48 Freq: Status: Active Protocol: Document 06/07/25 13:50 LFG (Rec: 06/07/25 16:23 LFG [id number]) Physical Therapy Assessment Goals Three Impairment Right knee weakness with flexion (2-/5) and extension ( 3/5) Care Transition Mgr Goal (LTG) Pt to demonstrate right knee MMT >4-/5 in both flexion and extension in order to return to previous functional mobility. 04/05/25 - Improving, flexion 4/5, extension 3+/5 06/07/25 - Flex: 4+/5 Ext: 4/5 goal MET LTG Duration Met Two Impairment Significant limitations in right knee flexion (AROM 29? ) Short Term Goal (STG Pt to demonstrate improvement in right knee flexion to ) >90? STG Duration Met Care Transition Mgr Goal (LTG) Pt to improve active right knee flexion to >120? in order to return to prior level of function 04/05/25 - AROM 119?, PROM 127? 06/07/25 - AROM 125, PROM 127 GOAL MET LTG Duration Met One Impairment Pt does not have an appropriate home exercise program Short Term Goal (STG Pt to be independent and compliant with an appropriate ) HEP STG Duration Met Assessment Summary Assessment Patient has met both ROM and LE strength goals. After lazaro tape application pt found therapeutic exercise to be purely working the target muscles without any sxs barriers. Pt progressed resistance significantly post tape application. Reviewed HEP and recommended pt continue LE strengthening and HEP independently and discharging at this time. Pt in agreement with POC. Physical Therapy Plan Frequency and Duration Plan of Care Start 06/07/25 Date Plan of Care End 06/08/25 Date Therapeutic Interventions Therapeutic Balance Training,Coordination Training,Gait Training, Interventions Home Exercise Program,Joint Mobilizations,Manual Therapy,Neuromuscular Re-education,Patient/Caregiver Education,Self-Care/Home Management,Soft Tissue Mobilization,Taping,Therapeutic Activities,Therapeutic Exercises Modalities Cold Pack/Ice Massage,Electric Stimulation,Hot Packs, Ultrasound Next Visit Focus/Plan Next Note Type Discharge Summary Next Visit Plan Follow HEP independently
== END 2025-06-15 09:39 | disposition home or self-care (01) ==
LOC: PHYS 13:45
PROVIDERS: Family Provider Family Medicine; PCP Family Medicine; Visit Provider Orthopaedic Surgery
DX: S82.041D Displaced comminuted fracture of right patella, subsequent encounter for closed fracture with routine healing (principal); M25.561 Pain in right knee; M25.661 Stiffness of right knee, not elsewhere classified; R26.89 Other abnormalities of gait and mobility
CPT/HCPCS: 97110; 97112; 97116; 97140; 97163; 97530; 97535